=== PATIENT | female | born 1935 | race Caucasian/White ===

== ENCOUNTER 2020-05-01 17:00 | Outpatient (CLI) | payer MEDICARE, OTHER, SELFPAY ==
--- NOTE | ~2020-05-01 | CT_ITS ---
EXAMINATION: CT brain wo con DATE: 05/01/2020 17:19 INDICATION: Altered mental status TECHNIQUE: Computed tomography (CT) of the head was performed without intravenous contrast. Sagittal and coronal reconstructions were performed. The mA was adjusted according to patient size. Iterative reconstruction technique was employed. The dose-length product was 605.33 mGy-cm. COMPARISON: head CT dated 03/22/2014 FINDINGS: No acute intracranial hemorrhage, acute infarction or abnormal extra axial fluid collection. There is mild scattered white matter hypoattenuation consistent with chronic small vessel ischemic disease. S ymmetric prominence of the sulci consistent with moderate age-appropriate diffuse cerebral volume los s. Ventricles are normal and symmetric. No mass/mass effect. Changes of bilateral intraocular lens re placement. The orbits, paranasal sinuses and mastoid air cells are normal. Intracranial calcified cer ebral atherosclerosis is noted. IMPRESSION: 1. No acute intracranial process. 2. Age-related changes including moderate diffuse volume loss and mild scattered white matter hypoatt enuation consistent with chronic small vessel ischemic disease. Reviewed, dictated and finalized at location A. IMPRESSION: 1. No acute intracranial process. 2. Age-related changes including moderate diffuse volume loss and mild scattere d white matter hypoattenuation consistent with chronic small vessel ischemic di sease.
[2020-05-01 18:07] LABS: Basophils Percent Auto 0.6 % (0.2-1.2); Eosinophils Percent Auto 0.6 % (0-4.4); Hematocrit 41.5 % (37.0-47.0); Hemoglobin 13.2 g/dL (12.0-15.0); Immature Granulocyte Absolute 0.02 K/mm3 (0.00-0.031); Immature Granulocyte Percent A 0.4 % (0-0.5); Lymphocytes Absolute Auto 1.45 K/mm3 (0.9-3.2); Lymphocytes Percent Auto 27.8 % (18.3-44.2); Mean Corpuscular HGB Conc 31.8 g/dl (32-36); Mean Corpuscular Hemoglobin 30.9 pg (26-34); Mean Corpuscular Volume 97.2 fl (80-100); Mean Platelet Volume 10.5 fl (7.4-10.4); Monocytes Absolute Auto 0.5 K/mm3 (0.1-0.6); Monocytes Percent Auto 9.8 % (2.6-8.5); Neutrophils Absolute Auto 3.2 K/mm3 (1.3-6.7); Neutrophils Percent Auto 60.8 % (45.5-73.1); Platelet Count Result 193 k/mm3 (150-375); Red Blood Count 4.27 M/mm3 (4.2-5.4); Red Cell Distribution Width 15.8 % (11.5-14.5); White Blood Count 5.2 K/mm3 (4.5-10.0)
[2020-05-01 18:20] LABS: Alanine Aminotransferase 13 U/L (4-35); Albumin Level 4.3 g/dL (3.5-5.1); Alkaline Phosphatase 158 U/L (38-126); Anion Gap 14.1 mmol/L (7-16); Aspartate Amino Transferase 27 U/L (14-36); Bilirubin,Total 0.5 mg/dL (0.2-1.3); Blood Urea Nitrogen 21 mg/dL (7-17); Calcium 9.7 mg/dL (8.4-10.2); Carbon Dioxide 31 mmol/L (22-30); Chloride 94 mmol/L (98-107); Estimated Glomerular Filt Rate 16; Glucose 110 mg/dL (65-105); Potassium 4.1 mmol/L (3.4-5.0); Sodium 135 mmol/L (137-145)
== END 2020-05-01 17:01 | disposition home or self-care (01) ==
LOC: ANHIMG 17:03
PROVIDERS: PCP Internal Medicine; Visit Provider Internal Medicine
DX: R41.82 Altered mental status, unspecified (principal); Z79.899 Other long term (current) drug therapy; E11.9 Type 2 diabetes mellitus without complications
CPT/HCPCS: 36415; 70450; 80053; 85025

== ENCOUNTER 2020-09-19 12:55 | Outpatient (NON) | payer MEDICARE, OTHER, SELFPAY ==
[2020-09-19 13:41] LABS: Add Urine Microscopic? YES; Appearance Urine Cloudy (Clear); Bacteria Urine Trace /hpf; Bilirubin Urine 1+ (Negative); Blood Urine 2+ (Negative); Color Urine Amber (Yellow); Glucose Urine UA Negative (Negative); Hyaline Casts Urine 20-29 /lpf; Ketones Urine Trace mg/dL (Negative); Leukocyte Esterase Ur 3+ LEU/UL (NEGATIVE); Mucus Urine Rare /lpf; Nitrate Urine Negative (Negative); Protein Urine 2+ mg/dL (Negative); RBC Urine >75 /hpf (0-2); Specific Grav Ur 1.023 (1.001-1.035); Squamous Epithelial Cell Urine Many /hpf (Few); WBC Urine >75 /hpf (0-3)
== END 2020-09-19 12:56 ==
PROVIDERS: PCP Internal Medicine; Visit Provider Internal Medicine
DX: R39.9 Unspecified symptoms and signs involving the genitourinary system (principal)
CPT/HCPCS: 81001; 87086

== ENCOUNTER 2021-02-26 06:41 | Outpatient (NON) | payer MEDICARE, OTHER, SELFPAY ==
[2021-02-26 07:52] LABS: Add Urine Microscopic? YES; Appearance Urine Cloudy (Clear); Bacteria Urine Trace /hpf; Bilirubin Urine Negative (Negative); Blood Urine Negative (Negative); Color Urine Yellow (Yellow); Glucose Urine UA Negative (Negative); Ketones Urine Negative (Negative); Leukocyte Esterase Ur 2+ LEU/UL (Negative); Nitrate Urine Negative (Negative); Protein Urine 2+ mg/dL (Negative); Specific Grav Ur 1.015 (1.001-1.035); Squamous Epithelial Cell Urine Many /hpf (Few); Transitional Epi Cells Urine Rare /hpf (None Seen); Urobilinogen Urine Negative mg/dL (<2.0); WBC Urine 16-20 /hpf
== END 2021-02-26 06:42 | disposition home or self-care (01) ==
PROVIDERS: PCP Internal Medicine; Visit Provider Internal Medicine
DX: R39.9 Unspecified symptoms and signs involving the genitourinary system (principal)
CPT/HCPCS: 81001; 87077; 87086; 87088; 87186

== ENCOUNTER 2021-02-26 11:29 | Outpatient (CLI) | payer MEDICARE, OTHER, SELFPAY ==
[2021-02-26 12:13] LABS: Basophils Percent Auto 0.5 % (0.2-1.2); Eosinophils Absolute Auto 0.1 K/mm3 (0-0.3); Eosinophils Percent Auto 1.4 % (0-4.4); Hematocrit 43.1 % (37.0-47.0); Hemoglobin 13.6 g/dL (12.0-15.0); Immature Granulocyte Absolute 0.02 K/mm3 (0.00-0.031); Immature Granulocyte Percent A 0.3 % (0-0.5); Lymphocytes Absolute Auto 1.51 K/mm3 (0.9-3.2); Lymphocytes Percent Auto 26.3 % (18.3-44.2); Mean Corpuscular HGB Conc 31.6 g/dl (32-36); Mean Corpuscular Hemoglobin 31.6 pg (26-34); Mean Platelet Volume 10.4 fl (7.4-10.4); Monocytes Absolute Auto 0.4 K/mm3 (0.1-0.6); Monocytes Percent Auto 6.6 % (2.6-8.5); Neutrophils Absolute Auto 3.7 K/mm3 (1.3-6.7); Neutrophils Percent Auto 64.9 % (45.5-73.1); Platelet Count Result 179 k/mm3 (150-375); Red Blood Count 4.31 M/mm3 (4.2-5.4); Red Cell Distribution Width 13.4 % (11.5-14.5); White Blood Count 5.8 K/mm3 (4.5-10.0)
[2021-02-26 12:19] LABS: Ammonia < 9 umol/L (9-30)
[2021-02-26 12:21] LABS: Alanine Aminotransferase 11 U/L (4-35); Albumin Level 4.5 g/dL (3.5-5.1); Alkaline Phosphatase 175 U/L (38-126); Anion Gap 11 mmol/L (8-16); Aspartate Amino Transferase 24 U/L (14-36); Bilirubin,Total 0.4 mg/dL (0.2-1.3); Blood Urea Nitrogen 15 mg/dL (7-17); Calcium 10.2 mg/dL (8.4-10.2); Carbon Dioxide 34 mmol/L (22-30); Chloride 92 mmol/L (98-107); Estimated Glomerular Filt Rate 10; Glucose 134 mg/dL (65-105); Potassium 4.6 mmol/L (3.4-5.0); Sodium 137 mmol/L (137-145)
[2021-02-26 12:24] LABS: Hemoglobin A1C 5.7 % (<5.7)
[2021-02-26 12:51] LABS: Thyroid Stimulating Hormone 0.017 uIU/mL (0.465-4.680)
[2021-02-26 12:54] LABS: Free T4 Free Thyroxine 1.55 ng/mL (0.78-2.19)
[2021-02-26 13:27] LABS: Folic Acid > 20.0 ng/mL (2.76->20); Vitamin B12 > 1000.0 pg/mL (239-931)
[2021-03-03 04:43] LABS: Vitamin B1 12 nmol/L (8-30)
[2021-03-05 11:18] LABS: Vitamin B2 12.2 nmol/L (6.2-39.0)
== END 2021-02-26 11:30 | disposition home or self-care (01) ==
LOC: ANHLAB 11:34
PROVIDERS: PCP Internal Medicine; Visit Provider Internal Medicine
DX: R41.82 Altered mental status, unspecified (principal); Z79.899 Other long term (current) drug therapy; E03.9 Hypothyroidism, unspecified; E11.22 Type 2 diabetes mellitus with diabetic chronic kidney disease; N18.4 Chronic kidney disease, stage 4 (severe); Z79.4 Long term (current) use of insulin; I10 Essential (primary) hypertension
CPT/HCPCS: 36415; 80053; 81001; 82140; 82607; 82746; 83036; 84207; 84252; 84425; 84439; 84443; 85025; 87086; 87186

== ENCOUNTER 2021-04-04 09:19 | Outpatient (NON) | payer MEDICARE, OTHER, SELFPAY ==
[2021-04-04 09:42] LABS: Add Urine Microscopic? YES; Appearance Urine Cloudy (Clear); Bacteria Urine Trace /hpf; Bilirubin Urine Negative (Negative); Color Urine Amber (Yellow); Glucose Urine UA Negative (Negative); Hyaline Casts Urine 50+ /lpf; Ketones Urine Negative (Negative); Leukocyte Esterase Ur 2+ LEU/UL (Negative); Mucus Urine Rare /lpf; Nitrate Urine Negative (Negative); Protein Urine 3+ mg/dL (Negative); Specific Grav Ur 1.017 (1.001-1.035); Squamous Epithelial Cell Urine Many /hpf (Few); Urobilinogen Urine Negative mg/dL (<2.0); WBC Urine 51-75 /hpf
[2021-04-04 09:59] LABS: Blood Urine Negative (Negative)
== END 2021-04-04 09:20 | disposition home or self-care (01) ==
LOC: ANHLAB 09:21
PROVIDERS: PCP Internal Medicine; Visit Provider Internal Medicine
DX: N39.0 Urinary tract infection, site not specified (principal)
CPT/HCPCS: 81001; 87086; 87088

== ENCOUNTER → 2021-04-14 10:40 | Outpatient (CLI) | payer MEDICARE, OTHER, SELFPAY ==
--- NOTE | ~2021-04-14 | US_ITS ---
EXAMINATION: US pelvic complete DATE: 04/14/2021 13:04 INDICATION: Generalized abdominal pain TECHNIQUE: Multiple transabdominal sonographic images of the pelvis were obtained. COMPARISON: None. FINDINGS: Bowel gas obscures visualization of the pelvic structures. The uterus is not identified. Th e ovaries are not visualized however no adnexal abnormality is seen. There is no free fluid in the pe lvis. IMPRESSION: 1. No sonographic correlate for the patient's symptoms, examination limited by bowel gas. Reviewed, dictated and finalized at location B.
--- NOTE | ~2021-04-14 | US_ITS ---
EXAMINATION: US abdomen complete DATE: 04/14/2021 11:21 INDICATION: Generalized abdominal pain and nausea TECHNIQUE: Multiple grayscale and Doppler ultrasound images of the abdomen were obtained. COMPARISON: CT, 07/21/2017 FINDINGS: The head and body of the pancreas are normal. The pancreatic tail is obscured by bowel gas. The liver is normal with normal echogenicity and echotexture. No surface nodularity. Normal hepatope raúl flow in the main portal vein. Stones are present in the nondistended gallbladder. There is no gal lbladder wall thickening or pericholecystic fluid. The normal common bile duct measures 5 mm. There w as no sonographic Garcia sign. The visualized portions of the aorta and inferior vena cava are normal . The right kidney measures 11.9 x 5.2 x 5.9 cm. The left kidney measures 9.4 x 5.3 x 5.6 cm. The kidne ys demonstrate increased parenchymal echogenicity. There is no hydronephrosis. The spleen is normal i n appearance and measures 9.1 cm. IMPRESSION: 1. Cholelithiasis without evidence of cholecystitis. Reviewed, dictated and finalized at location B.
== END ==
PROVIDERS: PCP Internal Medicine; Visit Provider Internal Medicine
DX: R10.2 Pelvic and perineal pain (principal); R10.84 Generalized abdominal pain; R11.0 Nausea; K80.20 Calculus of gallbladder without cholecystitis without obstruction
CPT/HCPCS: 76700; 76856

== ENCOUNTER 2021-04-22 07:44 | Outpatient (CLI) | payer MEDICARE, SELFPAY ==
--- NOTE | ~2021-04-22 | NM_ITS ---
EXAMINATION: NM hepatobiliary w pharm DATE: 04/22/2021 10:07 INDICATION: Generalized abdominal pain. COMPARISON: CT and ultrasound studies dated 04/14/2021 TECHNIQUE: 4.8 mCi Tc-99m mebrofenin (Choletec) was administered intravenously. Scintigraphic images of the abdomen were obtained for one hour. 1.9 mcg sincalide (Kinevac) was administered by slow intr avenous infusion, and imaging was continued for 30 minutes. Gallbladder ejection fraction was calcula rosi by the technologist. FINDINGS: There is normal clearance of radiotracer from the blood pool. There is homogeneous tracer uptake by t he liver. Activity progresses to the gallbladder and bowel. The gallbladder ejection fraction (GBEF) is 49% (normal 10-90%, but most patient with gallbladder dysfunction have GBEF < 35% which does over lap with the normal range). IMPRESSION: 1. Normal hepatobiliary scan. Reviewed, dictated and finalized at location A.
== END 2021-04-22 07:45 | disposition home or self-care (01) ==
LOC: ANHIMG 07:48
PROVIDERS: PCP Internal Medicine; Visit Provider Internal Medicine
DX: R10.9 Unspecified abdominal pain (principal); R11.0 Nausea
CPT/HCPCS: 78227; A9537; J2805

== ENCOUNTER 2021-04-28 13:13 | Outpatient (NON) | payer MEDICARE, SELFPAY ==
[2021-04-28 14:12] LABS: Add Urine Microscopic? YES; Appearance Urine Clear (Clear); Bilirubin Urine Negative (Negative); Color Urine Amber (Yellow); Glucose Urine UA Negative (Negative); Ketones Urine Negative (Negative); Leukocyte Esterase Ur 1+ LEU/UL (Negative); Nitrate Urine Negative (Negative); Protein Urine 1+ mg/dL (Negative); RBC Urine 0-2 /hpf (0-2); Specific Grav Ur 1.014 (1.001-1.035); Squamous Epithelial Cell Urine Many /hpf (Few); Transitional Epi Cells Urine Rare /hpf (None Seen); Urobilinogen Urine Negative mg/dL (<2.0)
[2021-04-28 14:16] LABS: Blood Urine Negative (Negative)
== END 2021-04-28 13:14 | disposition home or self-care (01) ==
LOC: ANHLAB 13:15
PROVIDERS: PCP Internal Medicine; Visit Provider Internal Medicine
DX: N39.0 Urinary tract infection, site not specified (principal)
CPT/HCPCS: 81001; 87077; 87086; 87186

== ENCOUNTER 2021-05-26 11:45 | Outpatient (NON) | payer MEDICARE, OTHER, SELFPAY ==
[2021-05-26 12:17] LABS: Add Urine Microscopic? YES; Appearance Urine Cloudy (Clear); Bilirubin Urine Negative (Negative); Color Urine Amber (Yellow); Glucose Urine UA Negative (Negative); Ketones Urine Negative (Negative); Leukocyte Esterase Ur 2+ LEU/UL (Negative); Mucus Urine Rare /lpf; Nitrate Urine Negative (Negative); Protein Urine 2+ mg/dL (Negative); Specific Grav Ur 1.017 (1.001-1.035); Squamous Epithelial Cell Urine Many /hpf (Few); Transitional Epi Cells Urine Rare /hpf (None Seen); Urobilinogen Urine Negative mg/dL (<2.0); WBC Urine 31-50 /hpf
[2021-05-26 12:20] LABS: Blood Urine Negative (Negative)
== END 2021-05-26 11:46 | disposition home or self-care (01) ==
PROVIDERS: PCP Internal Medicine; Visit Provider Internal Medicine
DX: N39.0 Urinary tract infection, site not specified (principal)
CPT/HCPCS: 81001; 87086; 87088

== ENCOUNTER 2021-06-25 13:36 | Outpatient (NON) | payer MEDICARE, OTHER, SELFPAY ==
[2021-06-25 14:56] LABS: Add Urine Microscopic? YES; Appearance Urine Cloudy (Clear); Bacteria Urine Trace /hpf; Bilirubin Urine Negative (Negative); Blood Urine Negative (Negative); Color Urine Amber (Yellow); Glucose Urine UA Negative (Negative); Ketones Urine Negative (Negative); Leukocyte Esterase Ur 3+ LEU/UL (Negative); Nitrate Urine Negative (Negative); Protein Urine 2+ mg/dL (Negative); Specific Grav Ur 1.016 (1.001-1.035); Squamous Epithelial Cell Urine Many /hpf (Few); Urobilinogen Urine Negative mg/dL (<2.0); WBC Urine >75 /hpf
== END 2021-06-25 13:37 | disposition home or self-care (01) ==
LOC: ANHLAB 13:39
PROVIDERS: PCP Internal Medicine; Visit Provider Internal Medicine
DX: N93.0 Postcoital and contact bleeding (principal)
CPT/HCPCS: 81001; 87086

== ENCOUNTER 2021-07-02 13:22 | Observation (INO) | payer MEDICARE, OTHER, SELFPAY ==
[2021-07-02] VITALS (64 sets, daily range): BP systolic 88–146; BP diastolic 39–102; PULSE 57–64; RESP 16–28; TEMP 36.4–36.6; O2SAT 82–100; BMI 32.3
--- NOTE | ~2021-07-02 | CT_ITS ---
EXAMINATION: CT brain wo con DATE: 07/02/2021 15:17 INDICATION: Altered mental status. Confusion. TECHNIQUE: Computed tomography (CT) of the head was performed without intravenous contrast. The mA wa s adjusted according to patient size. Iterative reconstruction technique was employed. The dose-lengt h product was 681.00 mGy-cm. COMPARISON: Head CT 05/01/2020 FINDINGS: There is no intracranial hemorrhage, acute infarction, or abnormal intracranial mass lesion . There are scattered areas of low attenuation in the cerebral white matter, which is within normal l imits for the patient's age. The ventricles are normal in size. There is mild mucosal thickening in t he paranasal sinuses. There are likely changes of ocular lens replacement surgeries. The mastoid air cells are normal. IMPRESSION: 1. Normal aging brain. Reviewed, dictated and finalized at location A. IMPRESSION: 1. Normal aging brain.
--- NOTE | ~2021-07-02 | XR_ITS ---
EXAMINATION: XR chest 1V portable EXAM DATE: 07/02/2021 18:06 INDICATION: Transient alteration of awareness. TECHNIQUE: Portable AP frontal chest x-ray was obtained. Comparison is made to prior examination from 03/21/2014. FINDINGS: Sternotomy wires are present without findings to suggest sternal dehiscence. There is singl e lead pacemaker/AICD device seen with tip projecting over the expected location of right ventricle. Cardiac valve replacement. There is cardiomegaly and pulmonary vascular congestion. No confluent cons olidation, pneumothorax or pleural effusion suspected. IMPRESSION: Cardiomegaly, pulmonary vascular congestion. Reviewed, dictated and finalized at location A.
--- NOTE | 2021-07-02 14:08 | ECG_ITS ---
Measurements Intervals Roundup Rate: 60 P: NH: 0 QRS: -61 QRSD: 185 T: 101 QT: 513 QTc: 513 Interpretive Statements ELECTRONIC VENTRICULAR PACEMAKER BASELINE ARTIFACT- I, II, III, AVR, AVL, AVF, V1, V3-V6 NO FURTHER INTERPRETATION IS POSSIBLE ATYPICAL ECG Electronically Signed On 07-02-2021 15:08:06 CDT by Pete Yeboah D.O.
--- NOTE | 2021-07-02 14:58 | ED.GENADULT ---
HPI - General Adult General Chief complaint: Altered Mental Status Stated complaint: AMS/? UTI Time Seen by Provider: 07/02/21 14:40 Source: patient, EMS, RN notes reviewed and old records reviewed Mode of arrival: EMS Limitations: no limitations History of Present Illness HPI narrative: Patient is 86 years old white female came to the ED by ambulance from home. Patient is telling me that she been feeling weak over the last 2 days, her legs unable to keep her up. And the more swelling than usual. Patient denies any fever, chills, nausea, vomiting, chest pain, shortness of breath, headache, back pain. Patient's daughter who called 911 reports that patient been hallucinating, confused and combative started yesterday. She finished a course of Cipro for 5 days for possible urinary tract infection. Patient also scratched her lower legs yesterday by her fingernail because she was hallucinating. Patient supposed to go to dialysis today but she did not. Currently patient main complaint is leg swelling and chronic knee pain Related Data Home Medications Medication Instructions Recorded Confirmed nystatin 100,000 unit/gram topical 1 applic TOPICAL BID 10/03/19 05/21/21 ointment silver sulfadiazine 1 % topical 1 applic TOPICAL BID 10/03/19 05/21/21 cream triamcinolone acetonide 0.1 % 1 applic TOPICAL BID 10/03/19 05/21/21 topical cream sevelamer HCl 800 mg tablet 1,600 mg PO TID tablet 08/20/20 05/21/21 furosemide 40 mg tablet 80 mg PO DAILY tablet 11/01/20 05/21/21 Lactobacillus cap PO 02/26/21 05/21/21 no.51-Bifidobacterium no.4 50 billion cell capsule aspirin 81 mg tablet,delayed 81 mg PO DAILY 02/26/21 05/21/21 release biotin 1,000 mcg chewable tablet 1,000 mcg PO DAILY 02/26/21 05/21/21 cyclobenzaprine 10 mg tablet 10 mg PO DAILY tablet 02/26/21 05/21/21 trazodone 50 mg tablet 50 mg PO QHS PRN 03/24/21 05/21/21 cranberry extract-vitamin C 250 cap PO 05/20/21 05/21/21 mg-60 mg capsule estrogen cream VAGINAL 06/30/21 trimethoprim 100 mg tablet 100 mg PO DAILY 06/30/21 Allergies Allergy/AdvReac Type Severity Reaction Status Date / Time amoxicillin Allergy Unknown Unknown Verified 07/02/21 13:45 clavulanic acid Allergy Unknown Unknown Verified 07/02/21 13:45 Penicillins Allergy Unknown Other Verified 07/02/21 13:45 Sulfa (Sulfonamide Allergy Unknown Unknown Verified 07/02/21 13:45 Antibiotics) sulfamethoxazole Allergy Unknown Unknown Verified 07/02/21 13:45 Review of Systems Review of Systems: CONSTITUTIONAL: Denies fever, chills, or sweats. EYES: Denies visual changes, redness, or discharge. ENT: Denies rhinorrhea, congestion, sore throat, or otalgia. CARDIOVASCULAR: Denies chest pain, palpitations, or edema. RESPIRATORY: Denies cough or dyspnea. GASTROINTESTINAL: Denies abdominal pain, nausea, vomiting, or diarrhea. GENITOURINARY: Denies dysuria or hematuria. SKIN: Denies rash or itching. MUSCULOSKELETAL: Denies back pain, joint pain, or myalgia. NEUROLOGIC: Denies headache, numbness, or weakness. PSYCHIATRIC: Denies anxiety or depression. [facility] Past Medical History Medical History Abdominal pain Abrasion Alopecia Altered mental status Benign essential hypertension BMI 30.0-30.9,adult BMI 32.0-32.9,adult BMI 33.0-33.9,adult Callus of foot Chronic acquired lymphedema Chronic pain Congestion of both ears Constipation Diabetes mellitus with neuropathy Diabetic retinopathy DM type 2 (diabetes mellitus, type 2) Encounter for routine adult health examination without abnormal findings ESRD (end stage renal disease) Follow up Frequent UTI GERD (gastroesophageal reflux disease) Gout Hyperlipidemia Hypothyroidism (acquired) Nausea 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
[2021-07-02 15:03] LABS: Glucose Point of Care 170 mg/dl (65-105)
[2021-07-02 15:07] LABS: Basophils Percent Auto 0.6 % (0.2-1.2); Eosinophils Absolute Auto 0.1 K/mm3 (0-0.3); Hematocrit 34.3 % (37.0-47.0); Hemoglobin 11.1 g/dL (12.0-15.0); Immature Granulocyte Absolute 0.01 K/mm3 (0.00-0.031); Immature Granulocyte Percent A 0.2 % (0-0.5); Lymphocytes Absolute Auto 1.07 K/mm3 (0.9-3.2); Lymphocytes Percent Auto 20.6 % (18.3-44.2); Mean Corpuscular HGB Conc 32.4 g/dl (32-36); Mean Corpuscular Hemoglobin 30.9 pg (26-34); Mean Corpuscular Volume 95.5 fl (80-100); Monocytes Absolute Auto 0.5 K/mm3 (0.1-0.6); Neutrophils Absolute Auto 3.5 K/mm3 (1.3-6.7); Neutrophils Percent Auto 67.6 % (45.5-73.1); Platelet Count Result 164 k/mm3 (150-375); Red Blood Count 3.59 M/mm3 (4.2-5.4); Red Cell Distribution Width 14.5 % (11.5-14.5); White Blood Count 5.2 K/mm3 (4.5-10.0)
[2021-07-02 15:16] LABS: INR 0.9; Prothrombin Time 12.4 Seconds (11.1-14.7)
[2021-07-02 15:17] LABS: Partial Thromboplastin Time 28.3 SECONDS (22.3-36.8)
--- NOTE | 2021-07-02 15:50 | PC.NURSE ---
Called lab requesting add on for this patient.
[2021-07-02 15:58] LABS: Add Urine Microscopic? YES; Appearance Urine Clear (Clear); Bilirubin Urine Negative (Negative); Blood Urine Negative (Negative); Color Urine Amber (Yellow); Glucose Urine UA Negative (Negative); Ketones Urine Negative (Negative); Leukocyte Esterase Ur Trace LEU/UL (Negative); Nitrate Urine Negative (Negative); Protein Urine 2+ mg/dL (Negative); Specific Grav Ur 1.017 (1.001-1.035); Urobilinogen Urine Negative mg/dL (<2.0)
[2021-07-02 16:57] LABS: Alanine Aminotransferase 12 U/L (4-35); Albumin Level 4.2 g/dL (3.5-5.1); Alkaline Phosphatase 160 U/L (38-126); Anion Gap 6 mmol/L (8-16); Aspartate Amino Transferase 29 U/L (14-36); Bilirubin,Total 0.5 mg/dL (0.2-1.3); Blood Urea Nitrogen 26 mg/dL (7-17); Calcium 9.4 mg/dL (8.4-10.2); Carbon Dioxide 34 mmol/L (22-30); Chloride 91 mmol/L (98-107); Estimated CRCL calculation 10 ml/min; Estimated Glomerular Filt Rate 9; Glucose 162 mg/dL (65-110); Potassium 4.9 mmol/L (3.4-5.0); Sodium 131 mmol/L (137-145)
--- NOTE | 2021-07-02 20:27 | PM.IMHP ---
H&P: HPI History of Present Illness Date/Time: 07/02/21 20:27 Chief Complaint: Altered mental status Narrative: Patient is 86 years old white female brought in by her daughter was at bedside due to confusion altered mental status. According to the daughter she has been confused and hallucinating and combative earlier today and hence Joni missed going to her dialysis as well. She was recently diagnosed with a UTI and has been having urinary tract infection off and on for quite some time. See also starts going to a urologist recently and has been put on trimethoprim daily to prevent recurrent urine tract infection. Whenever she gets urinary tract infection see does get confused and hallucinates during those time but gets better after the urinary tract infection is treated. She recently finished a course of ciprofloxacin prior to getting back on trimethoprim this time. She has been on hemodialysis for quite some time here. She has diabetes was well controlled she does report that she had an episode of low blood sugar of 54 about a week ago. She normally uses walker at home and gets around. She denies any fever chills nausea vomiting abdominal pain diarrhea shortness of breath headache chest pain. She states summer did something to her toenails however her daughter confirms that there has been nothing done to her toenails and she has been hallucinating with regard to that. Review of Systems Review of Systems: - CONSTITUTIONAL: Denies weight loss, fever and chills. - HEENT: Denies changes in vision and hearing - RESPIRATORY: Denies SOB and cough. - CV: Denies palpitations and CP. - GI: Denies abdominal pain, nausea, vomiting and diarrhea. - : Denies dysuria and urinary frequency. - MSK: Denies myalgia and joint pain. - SKIN: Denies rash and pruritus. - NEUROLOGICAL: Denies headache and syncope. - PSYCHIATRIC: Reports some agitation/hallucinations on and off All systems reviewed & are unremarkable except as noted in HPI and below Constitutional: Constitutional: Reports fatigue and Reports weakness Neurologic: Reports weakness Endocrine: Endocrine: Reports fatigue [facility] Past Medical History Medical History Abdominal pain Abrasion Alopecia Altered mental status Benign essential hypertension BMI 30.0-30.9,adult BMI 32.0-32.9,adult BMI 33.0-33.9,adult Callus of foot Chronic acquired lymphedema Chronic pain Congestion of both ears Constipation Diabetes mellitus with neuropathy Diabetic retinopathy DM type 2 (diabetes mellitus, type 2) Encounter for routine adult health examination without abnormal findings ESRD (end stage renal disease) Follow up Frequent UTI GERD (gastroesophageal reflux disease) Gout Hyperlipidemia Hypothyroidism (acquired) Nausea 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 RENATE on CPAP Renal failure Family History Family History Mother Diabetes mellitus Sibling Diabetes mellitus Cerebrovascular accident Social History Social History (Updated 07/02/21 @ 21:57 by Allegra Dillon, RN) Smoking status: Never smoker Alcohol intake: never Substance use: never Living arrangements: with family Occupation/Education: retired Spiritual care concerns: No Meds Home Medications and Allergies Home Medications Medication Instructions Recorded Confirmed Type sevelamer HCl 800 mg tablet 1,600 mg PO TID tablet 08/20/20 05/21/21 History furosemide 40 mg tablet 80 mg PO DAILY tablet 11/01/20 05/21/21 History Lactobacillus cap PO 02/26/21 05/21/21 History no.51-Bifidobacterium no.4 50 billion cell capsule aspirin 81 mg tablet,delayed 81 mg PO DAILY 02/26/21 05/21/21 History release biotin 1,000 mcg chewable tablet 1,000 mcg PO DAILY 02/26/21 05/21/21 History cyclobenzaprine 10 mg tablet 10 mg PO DAILY tablet 02/26/21 05/21/21 History insulin NPH isoph U-100 human 100 See Rx
--- NOTE | 2021-07-02 21:20 | ADMGEN ---
This patient, Diane Rojas, was admitted to Medical Room 347-01. Patient/family oriented to hospital policies and general routines including ID bracelet, bed and alarms, visiting hours, pain management, procedures, bathroom and other care routines, personal items, smoking policy, room service/diet, and visiting hours. Information on how to activate the Rapid Response Team has been discussed. Patient/Family are encouraged to report perceived risks to care and to ask questions if they do not understand what they are told or what they should do.
[2021-07-02 22:34] LABS: Glucose Point of Care 144 mg/dl (65-105)
[2021-07-02] MEDS: ASPIRIN 81 MG ENTERIC TABLET PO (23:15)
[2021-07-02] MEDS: SIMVASTATIN 20 MG TABLET 40 MG PO (23:15)
[2021-07-02] MEDS: allopurinoL 100 MG TABLET PO (23:16)
[2021-07-02] MEDS: MIRTAZAPINE 7.5 MG TABLET PO (23:16)
[2021-07-02 23:19] LABS: Hemoglobin A1C 5.6 % (<5.7)
[2021-07-03] VITALS (18 sets, daily range): BP systolic 102–190; BP diastolic 43–78; PULSE 59–66; RESP 16–18; TEMP 35.6–37; O2SAT 98–100
[2021-07-03 00:50] LABS: Folic Acid > 20.0 ng/mL (2.76->20)
[2021-07-03] MEDS: LEVOTHYROXINE SODIUM 88 MCG TABLET PO (05:29)
[2021-07-03 07:43] LABS: Vitamin D 25 Hydroxy 21.7 ng/mL
[2021-07-03 07:46] LABS: Glucose Point of Care 134 mg/dl (65-105)
--- NOTE | 2021-07-03 08:37 | PC.NURSE ---
Left message for the dialysis nurse scullion chief.
[2021-07-03] MEDS: ACIDOPHILUS/BULGARICUS CHEWABLE TABLET 2 TABLET BY MOUTH (08:42)
[2021-07-03] MEDS: SERTRALINE HCL 50 MG TABLET PO (08:43)
[2021-07-03] MEDS: TRIMETHOPRIM 100 MG TABLET PO (08:43)
[2021-07-03] MEDS: SEVELAMER CARBONATE 800 MG TABLET 1600 MG PO ×3 (08:43→17:18)
[2021-07-03] MEDS: QUEtiapine FUMARATE 25 MG TABLET PO ×2 (08:43→17:19)
[2021-07-03] MEDS: PANTOPRAZOLE 40 MG TABLET PO ×2 (08:43→17:18)
[2021-07-03] MEDS: FUROSEMIDE 40 MG TABLET PO ×2 (08:44→17:18)
[2021-07-03] MEDS: SUCRALFATE 1 GM TABLET PO ×2 (08:44→17:19)
[2021-07-03] MEDS: CYCLOBENZAPRINE HCL 10 MG TABLET PO (08:44)
--- NOTE | 2021-07-03 09:30 | PM.CNNEP ---
Assessment and Plan Assessment and plan (1) ESRD (end stage renal disease): Code(s): N18.6 - End stage renal disease Status: Acute Assessment and Plan: Diane Has end-stage renal disease. She was due for dialysis yesterday. She came to the ER. She is getting dialysis today to catch up and then we will treat her tomorrow or Wednesday as well. The patient has end-stage renal disease is from diabetes and hypertension. She tolerates the treatments fairly well generally. No big drops in blood pressure or cramping. Her volume status looks pretty good. We will take some fluid off in the treatment. Her electrolytes and BUN are okay (2) Metabolic encephalopathy: Code(s): G93.41 - Metabolic encephalopathy Status: Acute Assessment and Plan: the patient had confusion and hallucinations yesterday at home. This seemed to improve by the time she got here. (3) Abrasion: Code(s): T14.8XXA - Other injury of unspecified body region, initial encounter Status: Acute Assessment and Plan: Patient has some the right lower extremity. It does not look very red and it is not very painful. No fevers and her white count is okay. (4) Frequent UTI: Code(s): N39.0 - Urinary tract infection, site not specified Status: Acute Assessment and Plan: UA is negative now (5) Benign essential hypertension: Code(s): I10 - Essential (primary) hypertension Status: Acute Assessment and Plan: blood pressure is under good control (6) RENATE on CPAP: Code(s): G47.33 - Obstructive sleep apnea (adult) (pediatric); Z99.89 - Dependence on other enabling machines and devices Status: Acute Assessment and Plan: she uses a CPAP mask (7) GERD (gastroesophageal reflux disease): Qualifiers: Esophagitis presence: esophagitis presence not specified Qualified Code(s): K21.9 - Gastro-esophageal reflux disease without esophagitis Code(s): K21.9 - Gastro-esophageal reflux disease without esophagitis Status: Acute Assessment and Plan: no symptoms right now (8) Hypothyroidism (acquired): Code(s): E03.9 - Hypothyroidism, unspecified Status: Acute Assessment and Plan: on supplement (9) DM type 2 (diabetes mellitus, type 2): Qualifiers: Chronic kidney disease stage: stage 4 (severe) Diabetes mellitus complication detail: with chronic kidney disease Diabetes mellitus complication status: with kidney complications Diabetes mellitus care home insulin use: with care home use Qualified Code(s): E11.22 - Type 2 diabetes mellitus with diabetic chronic kidney disease; N18.4 - Chronic kidney disease, stage 4 (severe); Z79.4 - alf (current) use of insulin Code(s): E11.9 - Type 2 diabetes mellitus without complications Status: Acute Assessment and Plan: on Accu-Cheks and sliding-scale insulin History of Present Illness Reason for Consult Consult date: 07/03/21 Chief Complaint Chief complaint: Encephalopathy, Hemodialysis Patient History of Present Illness Narrative: Diane is a very pleasant 86-year-old lady who has multiple medical problems including end-stage renal disease on dialysis 3 times a week, recurrent UTIs, diabetes, hypertension, hyperlipidemia, sleep apnea, hypothyroidism, gout, GERD the patient gets recurrent bladder infections. When she gets a bladder infection she gets confused. Usually the urinalysis is positive and gets antibiotics. Because of the frequent bladder infections she saw Urology. That doctor put her on daily Trimethoprim. The patient became confused yesterday and so she was felt to have a bladder infection. She went to the emergency room and the urine was clear. The patient was alert and seems oriented in the ER but because of the concerns at home they admitted her. Currently the patient recognizes me. She feels okay. She still on her
[2021-07-03 09:41] LABS: Thyroid Stimulating Hormone Reflex 0.265 uIU/mL (0.465-4.68)
[2021-07-03 10:13] LABS: Free T4 Free Thyroxine Reflex 1.74 ng/dL (0.78-2.19)
[2021-07-03 12:16] LABS: Glucose Point of Care 173 mg/dl (65-105)
--- NOTE | 2021-07-03 14:02 | PM.IMPN ---
Progress Note: A&P Assessment and Plan (1) Metabolic encephalopathy: Code(s): G93.41 - Metabolic encephalopathy Status: Acute Assessment and Plan: Altered mental status acute on chronic likely has underlying dementia CT head with no acute findings however noted cerebral volume loss likely frontotemporal area which has worsened compared to last year's CT scan Also associated hallucinations suggest possibly dementia related and or or delirium from underlying UTI etc MRI brain pending Neurology consulted May need follow-up with Neurology as an outpatient basis for continued monitoring Followed by psychiatrist as outpatient basis on sertraline and Seroquel Remeron at night which will be continued (2) Frequent UTI: Code(s): N39.0 - Urinary tract infection, site not specified Status: Acute Assessment and Plan: recent UTI treated with Cipro currently on trimethoprim rate daily UA not suggestive of the UTI currently Follow UC (3) Gout: Qualifiers: Gout site: unspecified site Gout etiology: unspecified cause Chronicity: unspecified Qualified Code(s): M10.9 - Gout, unspecified Code(s): M10.9 - Gout, unspecified Status: Acute Assessment and Plan: Continue allopurinol (4) ESRD (end stage renal disease): Code(s): N18.6 - End stage renal disease Status: Acute Assessment and Plan: HD MWF Missed dialysis yesterday, plan for HD today and Wednesday Nephrology consulted, recommendations appreciated Avoid nephrotoxins Renally dose all meds Monitor renal function (5) Diabetes mellitus with neuropathy: Qualifiers: Diabetes mellitus type: type 2 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 Hold NPH Hgb A1c 5.6 SSI, accuchecks Monitor (6) Diabetic retinopathy: Qualifiers: Diabetes mellitus type: type 2 Diabetic retinopathy severity: with unspecified retinopathy severity Diabetes mellitus macular edema: macular edema presence unspecified Laterality: unspecified laterality Qualified Code(s): E11.319 - Type 2 diabetes mellitus with unspecified diabetic retinopathy without macular edema Code(s): E11.319 - Type 2 diabetes mellitus with unspecified diabetic retinopathy without macular edema Status: Acute Assessment and Plan: Treatment as above (7) RENATE on CPAP: Code(s): G47.33 - Obstructive sleep apnea (adult) (pediatric); Z99.89 - Dependence on other enabling machines and devices Status: Acute Assessment and Plan: # RENATE on CPAP (8) Chronic acquired lymphedema: Code(s): I89.0 - Lymphedema, not elsewhere classified Status: Acute (9) GERD (gastroesophageal reflux disease): Qualifiers: Esophagitis presence: esophagitis presence not specified Qualified Code(s): K21.9 - Gastro-esophageal reflux disease without esophagitis Code(s): K21.9 - Gastro-esophageal reflux disease without esophagitis Status: Acute (10) Hypothyroidism (acquired): Code(s): E03.9 - Hypothyroidism, unspecified Status: Acute Assessment and Plan: TSH low Will continue with home dose for now Follow up with PCP, may need to adjust dose of Synthroid (11) Benign essential hypertension: Code(s): I10 - Essential (primary) hypertension Status: Acute Assessment and Plan: BP soft On Lasix Monitor (12) Hyperlipidemia: Qualifiers: Hyperlipidemia type: mixed hyperlipidemia Qualified Code(s): E78.2 - Mixed hyperlip
[2021-07-03 14:06] LABS: Total Triiodothyronine (T3) 0.83 NG/ML (0.97-1.69)
--- NOTE | 2021-07-03 14:24 | PC.NURSE ---
Patient taken to dialysis per bed.
--- NOTE | 2021-07-03 15:45 | WPDNEURCNPN ---
Assessment and Plan Additional Plan 86 years old lady admitted to the hospital through the emergency room for the complaint of change in the mental status initial CT scan of the brain revealed no evidence of bleed, hydrocephalus or any acute territorial stroke, routine lab studies are compatible with sodium of 131 with chloride of 91 and BUN 26 with creatinine of 4.60 her glucose is fluctuating between 160 to 173 I will obtain the routine EEG for further clarification Consult date: 07/03/21 Time Seen: 12:00 HPI: Diane Rojas is a 86 year old female has been admitted to the [facility] through the emergency room for the complaint of increasing confusion with change in the mental status as per the information available from her daughter when she was brought to the emergency room reportedly she has been confused, hallucinating and has also been combative for that reason she missed her dialysis she has been recently diagnosed with UTI and has been getting UTI quite frequently. Whenever she gets UTI she gets increasingly confused and starts hallucinating she has been on hemodialysis for quite some time Review of Systems Review of Systems: All systems reviewed & are unremarkable except as noted in HPI and below PMFSH Past Medical History Medical History Abdominal pain Abrasion Alopecia Altered mental status Benign essential hypertension BMI 30.0-30.9,adult BMI 32.0-32.9,adult BMI 33.0-33.9,adult Callus of foot Chronic acquired lymphedema Chronic pain Congestion of both ears Constipation Diabetes mellitus with neuropathy Diabetic retinopathy DM type 2 (diabetes mellitus, type 2) Encounter for routine adult health examination without abnormal findings ESRD (end stage renal disease) Follow up Frequent UTI GERD (gastroesophageal reflux disease) Gout Hyperlipidemia Hypothyroidism (acquired) Nausea On shelter drug therapy RENATE on CPAP Renal failure Family History Family History Mother Diabetes mellitus Sibling Diabetes mellitus Cerebrovascular accident Social History Social History Smoking status: Never smoker Alcohol intake: never Substance use: never Living arrangements: with family Occupation/Education: retired Spiritual care concerns: No Meds Home Medications and Allergies Home Medications Medication Instructions Recorded Confirmed Type sevelamer HCl 800 mg tablet 1,600 mg PO TID tablet 08/20/20 07/02/21 History furosemide 40 mg tablet 40 mg PO BID tablet 11/01/20 07/02/21 History Lactobacillus 1 cap PO DAILY 02/26/21 07/02/21 History no.51-Bifidobacterium no.4 50 billion cell capsule aspirin 81 mg tablet,delayed 81 mg PO HS 02/26/21 07/02/21 History release biotin 1,000 mcg chewable tablet 1,000 mcg PO QPM 02/26/21 07/02/21 History cyclobenzaprine 10 mg tablet 10 mg PO DAILY tablet 02/26/21 07/02/21 History insulin NPH isoph U-100 human 100 See Rx Instructions SUBCUT 02/26/21 07/02/21 Rx unit/mL subcutaneous suspension .COMPLEX #4 vial sucralfate 1 gram tablet 1 g PO BID #60 tablet 03/24/21 07/02/21 Rx trazodone 50 mg tablet 50 mg PO QHS PRN 03/24/21 07/02/21 History mirtazapine 7.5 mg tablet 7.5 mg PO QHS #90 tablet 04/03/21 07/02/21 Rx sertraline 50 mg tablet 50 mg PO DAILY #90 tablet 04/03/21 07/02/21 Rx omeprazole 40 mg capsule,delayed 40 mg PO BID #180 cap 05/09/21 07/02/21 Rx release trimethoprim 100 mg tablet 100 mg PO DAILY 06/30/21 07/02/21 History allopurinol 100 mg PO HS 07/02/21 07/02/21 History d-mannose 1,000 mg PO BID 07/02/21 07/02/21 History levothyroxine 88 mcg PO DAILY 07/02/21 07/02/21 History ondansetron 8 mg PO QID PRN 07/02/21 07/02/21 History quetiapine 25 mg PO BID 07/02/21 07/02/21 History simvastatin 40 mg PO HS 07/02/21 07/02/21 History Allergies Allergy/AdvReac Type Severity Reaction Sta
[2021-07-03 17:17] LABS: Glucose Point of Care 118 mg/dl (65-105)
[2021-07-03] MEDS: allopurinoL 100 MG TABLET PO (20:44)
[2021-07-03] MEDS: traZODone HCL 50 MG TABLET PO (20:44)
[2021-07-03] MEDS: ASPIRIN 81 MG ENTERIC TABLET PO (20:44)
[2021-07-03] MEDS: SIMVASTATIN 20 MG TABLET 40 MG PO (20:44)
[2021-07-03] MEDS: MIRTAZAPINE 7.5 MG TABLET PO (20:44)
--- NOTE | 2021-07-03 21:22 | PM.EVENT ---
Event Note Event Note Event Note: ON HD. noelle it well. bp is a bit generous.. will take extra fluid off seen at 4pm
[2021-07-03 21:33] LABS: Glucose Point of Care 173 mg/dl (65-105)
[2021-07-04] VITALS (13 sets, daily range): BP systolic 84–155; BP diastolic 46–62; PULSE 59–66; RESP 16–20; TEMP 36.2–37; O2SAT 100
[2021-07-04 05:55] LABS: Hemoglobin 9.6 g/dL (12.0-15.0); Mean Corpuscular Hemoglobin 30.6 pg (26-34); Mean Corpuscular Volume 95.5 fl (80-100); Mean Platelet Volume 10.3 fl (7.4-10.4); Platelet Count Result 133 k/mm3 (150-375); Red Blood Count 3.14 M/mm3 (4.2-5.4); Red Cell Distribution Width 14.6 % (11.5-14.5); White Blood Count 5.1 K/mm3 (4.5-10.0)
[2021-07-04] MEDS: LEVOTHYROXINE SODIUM 88 MCG TABLET PO (06:02)
[2021-07-04 06:09] LABS: Albumin Level 3.7 g/dL (3.5-5.1); Anion Gap 5 mmol/L (8-16); Blood Urea Nitrogen 25 mg/dL (7-17); Carbon Dioxide 31 mmol/L (22-30); Chloride 95 mmol/L (98-107); Estimated CRCL calculation 11 ml/min; Estimated Glomerular Filt Rate 10; Glucose 152 mg/dL (65-110); Phosphorus 3.6 mg/dL (2.5-4.5); Potassium 4.7 mmol/L (3.4-5.0); Sodium 131 mmol/L (137-145)
[2021-07-04] MEDS: TRIMETHOPRIM 100 MG TABLET PO (07:50)
[2021-07-04] MEDS: FUROSEMIDE 40 MG TABLET PO ×2 (07:50→16:45)
[2021-07-04] MEDS: CYCLOBENZAPRINE HCL 10 MG TABLET PO (07:50)
[2021-07-04] MEDS: SUCRALFATE 1 GM TABLET PO ×2 (07:50→16:46)
[2021-07-04] MEDS: PANTOPRAZOLE 40 MG TABLET PO ×2 (07:50→16:45)
[2021-07-04] MEDS: SEVELAMER CARBONATE 800 MG TABLET 1600 MG PO ×2 (07:50→16:43)
[2021-07-04] MEDS: QUEtiapine FUMARATE 25 MG TABLET PO ×2 (07:51→16:46)
[2021-07-04] MEDS: SERTRALINE HCL 50 MG TABLET PO (07:51)
[2021-07-04] MEDS: ACIDOPHILUS/BULGARICUS CHEWABLE TABLET 2 TABLET BY MOUTH (07:51)
[2021-07-04 08:28] LABS: Glucose Point of Care 137 mg/dl (65-105)
--- NOTE | 2021-07-04 10:20 | PM.IMPN ---
Progress Note: A&P Assessment and Plan (1) Metabolic encephalopathy: Code(s): G93.41 - Metabolic encephalopathy Status: Acute Assessment and Plan: Altered mental status acute on chronic likely has underlying dementia CT head with no acute findings however noted cerebral volume loss likely frontotemporal area which has worsened compared to last year's CT scan Also associated hallucinations suggest possibly dementia related and or or delirium from underlying UTI etc MRI brain pending Neurology consulted May need follow-up with Neurology as an outpatient basis for continued monitoring Followed by psychiatrist as outpatient basis on sertraline and Seroquel Remeron at night which will be continued (2) Frequent UTI: Code(s): N39.0 - Urinary tract infection, site not specified Status: Acute Assessment and Plan: recent UTI treated with Cipro currently on trimethoprim rate daily UA not suggestive of the UTI currently UC NGTD (3) Gout: Qualifiers: Gout site: unspecified site Gout etiology: unspecified cause Chronicity: unspecified Qualified Code(s): M10.9 - Gout, unspecified Code(s): M10.9 - Gout, unspecified Status: Acute Assessment and Plan: Continue allopurinol (4) ESRD (end stage renal disease): Code(s): N18.6 - End stage renal disease Status: Acute Assessment and Plan: HD MWF Missed dialysis yesterday, plan for HD today Nephrology consulted, recommendations appreciated Avoid nephrotoxins Renally dose all meds Monitor renal function (5) Diabetes mellitus with neuropathy: Qualifiers: Diabetes mellitus type: type 2 Diabetes mellitus long term acute care registered nurse insulin use: with long-term use Qualified Code(s): E11.40 - Type 2 diabetes mellitus with diabetic neuropathy, unspecified; Z79.4 - terminal press operator (current) use of insulin Code(s): E11.40 - Type 2 diabetes mellitus with diabetic neuropathy, unspecified Status: Acute Assessment and Plan: type 2 diabetes mellitus with neuropathy intermittent hypoglycemia reported as well which can add to the hallucination and mentation problem. Hold NPH Hgb A1c 5.6 SSI, accuchecks Monitor (6) Diabetic retinopathy: Qualifiers: Diabetes mellitus type: type 2 Diabetic retinopathy severity: with unspecified retinopathy severity Diabetes mellitus macular edema: macular edema presence unspecified Laterality: unspecified laterality Qualified Code(s): E11.319 - Type 2 diabetes mellitus with unspecified diabetic retinopathy without macular edema Code(s): E11.319 - Type 2 diabetes mellitus with unspecified diabetic retinopathy without macular edema Status: Acute Assessment and Plan: Treatment as above (7) RENATE on CPAP: Code(s): G47.33 - Obstructive sleep apnea (adult) (pediatric); Z99.89 - Dependence on other enabling machines and devices Status: Acute Assessment and Plan: # RENATE on CPAP (8) Chronic acquired lymphedema: Code(s): I89.0 - Lymphedema, not elsewhere classified Status: Acute (9) GERD (gastroesophageal reflux disease): Qualifiers: Esophagitis presence: esophagitis presence not specified Qualified Code(s): K21.9 - Gastro-esophageal reflux disease without esophagitis Code(s): K21.9 - Gastro-esophageal reflux disease without esophagitis Status: Acute (10) Hypothyroidism (acquired): Code(s): E03.9 - Hypothyroidism, unspecified Status: Acute Assessment and Plan: TSH low Will continue with home dose for now Follow up with PCP, may need to adjust dose of Synthroid (11) Benign essential hypertension: Code(s): I10 - Essential (primary) hypertension Status: Acute Assessment and Plan: BP soft On Lasix Monitor (12) Hyperlipidemia: Qualifiers: Hyperlipidemia type: mixed hyperlipidemia Qualified Code(s): E78.2 - Mixed hyperlipidemia C
--- NOTE | 2021-07-04 10:33 | WPDNEUROPN ---
Progress Note: A&P Additional Plan remains stable more awake and alert and following the instructions appropriately treatment will be continued as such Time Spent With Patient Time with patient: less than 15 minutes Subjective Date/time seen: 07/04/21 10:33 86 years old lady admitted for the complaints of change in the mental status with negative CT scan of the head but hyponatremia on routine lab evaluation up until now document cardiomegaly on x-ray of the chest, negative CT scan of the head, routine lab compatible with anemia mild hyponatremia, and abnormal UA Review of Systems Review of Systems: All systems reviewed & are unremarkable except as noted in HPI and below Exam Const: General: cooperative, comfortable, no acute distress, alert and awake Nutritional Appearance: overweight Orientation/consciousness: oriented to person and oriented to place Limitations: physical limitations HENMT: Head: normal to inspection Ears: hearing grossly normal bilaterally General nose exam: Normal external nose present Face and sinus: normal facial exam Eyes: General: appearance normal, both eyes and all related structures Visual Garza: normal visual garza by confrontation Alignment and Position: alignment normal Periorbital: periorbital findings normal Eyelids: eyelids normal Conjunctivae: conjunctivae normal Sclera: sclerae normal Cornea: corneas normal Neck: Neck: full ROM and no lymphadenopathy Resp: Effort & Inspection: able to speak in complete sentences Auscultation: clear to auscultation bilaterally Cardio: Rhythm: regular rhythm Neuro: General: oriented to person and oriented to place Cranial nerves: Yes CN's II-XII intact bilaterally Cognition (Neuro): normal cognition Speech: normal speech Gait exam (Neuro): Unable to assess gait Sensory Exam: Sensory deficit (Neuro) Deep tendon reflexes (DTR's): Right triceps reflex intensity grade: 1+, Left triceps reflex intensity grade: 1+, Rt Biceps (C5, C6): 1+, Left biceps reflex intensity grade: 1+, Right brachioradialis reflex intensity grade: 1+, Left brachioradialis reflex intensity grade: 1+, Right patellar reflex intensity grade: 1+, Left patellar reflex intensity grade: 1+, Right ankle reflex intensity grade: 0 and Left ankle reflex intensity grade: 0 Objective Data Vital Signs Vital Signs: Vital Signs - 24 hr 07/03/21 12:00 07/03/21 14:20 07/03/21 14:38 Temperature 36.7 C Pulse Rate 60 63 60 Respiratory Rate 18 Blood Pressure 149/66 H 167/70 H Pulse Oximetry 07/03/21 15:00 07/03/21 15:20 07/03/21 15:40 Temperature Pulse Rate 60 61 64 Respiratory Rate Blood Pressure 190/78 H 155/63 H 179/66 H Pulse Oximetry 07/03/21 16:00 07/03/21 16:20 07/03/21 16:40 Temperature Pulse Rate 60 59 L 59 L Respiratory Rate Blood Pressure 154/62 H 155/63 H 155/63 H Pulse Oximetry 07/03/21 16:58 07/03/21 19:46 07/03/21 20:00 Temperature 36.7 C 36.2 C L Pulse Rate 64 59 L 60 Respiratory Rate 16 16 Blood Pressure 159/54 H 149/43 H Pulse Oximetry 98 07/03/21 23:35 07/04/21 00:00 07/04/21 04:00 Temperature Pulse Rate 61 60 Respiratory Rate Blood Pressure Pulse Oximetry 98 07/04/21 04:02 Temperature 37.0 C Pulse Rate 60 Respiratory Rate 16 Blood Pressure 142/52 H Pulse Oximetry 100 Intake/Output Intake/Output: Intake & Output 07/01/21 07/02/21 07/03/21 07/04/21 23:59 23:59 23:59 23:59 Intake Total 770 340 Output Total 50 1100 0 Balance -50 -330 340 Meds/Results Medications: Active Medications Generic Name Dose Route Start Last Admin Trade Name Archana PRN Reason Stop Dose Admin Allopurinol 100 mg 07/02/21 22:50 07/03/21 20:44 Allopurinol 100 Mg Tablet PO 100 mg HS ISSA Administration Aspirin 81 mg 07/02/21 22:55 07/03/21 20:44 Aspirin 81 Mg Enteric Tablet PO 81 mg HS ISSA Administration Cyclobenzaprine HCl 10 mg 07/03/21 09:00 07/04/21 07:50 Cyclobenzapri
[2021-07-04] MEDS: EPOETIN ALFA-EPBX 10,000 UNITS/ML VIAL 10000 UNITS IV PUSH (13:15)
[2021-07-04 13:35] LABS: Hepatitis B Surface Antigen Negative (Negative)
[2021-07-04 13:53] LABS: Hepatitis B Surface Anti Res Negative
--- NOTE | 2021-07-04 14:43 | PM.PNNEP ---
Progress Note: A&P Assessment and Plan (1) ESRD (end stage renal disease): Code(s): N18.6 - End stage renal disease Status: Acute Assessment and Plan: Diane Has end-stage renal disease. due to DM and HTN HD is underway (2) Metabolic encephalopathy: Code(s): G93.41 - Metabolic encephalopathy Status: Acute Assessment and Plan: resolved. (3) Abrasion: Code(s): T14.8XXA - Other injury of unspecified body region, initial encounter Status: Acute Assessment and Plan: Patient has some the right lower extremity. It does not look very red and it is not very painful. No fevers and her white count is okay. (4) Frequent UTI: Code(s): N39.0 - Urinary tract infection, site not specified Status: Acute Assessment and Plan: UA is negative now (5) Benign essential hypertension: Code(s): I10 - Essential (primary) hypertension Status: Acute Assessment and Plan: blood pressure is under good control (6) RENATE on CPAP: Code(s): G47.33 - Obstructive sleep apnea (adult) (pediatric); Z99.89 - Dependence on other enabling machines and devices Status: Acute Assessment and Plan: she uses a CPAP mask (7) GERD (gastroesophageal reflux disease): Qualifiers: Esophagitis presence: esophagitis presence not specified Qualified Code(s): K21.9 - Gastro-esophageal reflux disease without esophagitis Code(s): K21.9 - Gastro-esophageal reflux disease without esophagitis Status: Acute Assessment and Plan: no symptoms right now (8) Hypothyroidism (acquired): Code(s): E03.9 - Hypothyroidism, unspecified Status: Acute Assessment and Plan: on supplement (9) DM type 2 (diabetes mellitus, type 2): Qualifiers: Diabetes mellitus residential insulin use: with rn long term care use Diabetes mellitus complication status: with kidney complications Diabetes mellitus complication detail: with chronic kidney disease Chronic kidney disease stage: stage 4 (severe) Qualified Code(s): E11.22 - Type 2 diabetes mellitus with diabetic chronic kidney disease; N18.4 - Chronic kidney disease, stage 4 (severe); Z79.4 - detention (current) use of insulin Code(s): E11.9 - Type 2 diabetes mellitus without complications Status: Acute Assessment and Plan: on Accu-Cheks and sliding-scale insulin Subjective Date/time seen: 07/04/21 14:43 Interval history: On HD noelle it well. BP is generous. will remove extra fluid. Seen at 11:35pm Review of Systems Cardiovascular: Cardiovascular: Reports no additional cardiovascular complaints Respiratory: Respiratory: Reports no additional respiratory complaints Gastrointestinal: Gastrointestinal: Reports no additional gastrointestinal complaints Genitourinary: Genitourinary: Reports no additional female genitourinary complaints Exam Narrative: WDWN in NAD skin no rash head ncat lungs clear cor reg no rub abd BS+ nontender and soft ext trace edema. Objective Data Vital Signs Vital Signs: Vital Signs - 24 hr 07/03/21 15:00 07/03/21 15:20 07/03/21 15:40 Temperature Pulse Rate 60 61 64 Respiratory Rate Blood Pressure 190/78 H 155/63 H 179/66 H Pulse Oximetry 07/03/21 16:00 07/03/21 16:20 07/03/21 16:40 Temperature Pulse Rate 60 59 L 59 L Respiratory Rate Blood Pressure 154/62 H 155/63 H 155/63 H Pulse Oximetry 07/03/21 16:58 07/03/21 19:46 07/03/21 20:00 Temperature 36.7 C 36.2 C L Pulse Rate 64 59 L 60 Respiratory Rate 16 16 Blood Pressure 159/54 H 149/43 H Pulse Oximetry 98 07/03/21 23:35 07/04/21 00:00 07/04/21 04:00 Temperature Pulse Rate 61 60 Respiratory Rate Blood Pressure Pulse Oximetry 98 07/04/21 04:02 07/04/21 08:00 07/04/21 11:30 Temperature 37.0 C 36.6 C Pulse Rate 60 61 60 Respiratory Rate 16 18 Blood Pressure 142/52 H 121/51 L Pulse
--- NOTE | 2021-07-04 15:02 | PCPTNOTE ---
Unable to initiate therapy due to pt out of room this afternoon.
[2021-07-04 16:55] LABS: Glucose Point of Care 116 mg/dl (65-105)
[2021-07-04] MEDS: MIRTAZAPINE 7.5 MG TABLET PO (21:40)
[2021-07-04] MEDS: SIMVASTATIN 20 MG TABLET 40 MG PO (21:40)
[2021-07-04] MEDS: allopurinoL 100 MG TABLET PO (21:40)
[2021-07-04] MEDS: ASPIRIN 81 MG ENTERIC TABLET PO (21:40)
[2021-07-04 21:55] LABS: Glucose Point of Care 234 mg/dl (65-105)
[2021-07-05] VITALS: PULSE 60
[2021-07-05 04:00] VITALS: PULSE 60
[2021-07-05 05:45] VITALS: BP 136/51; PULSE 60; RESP 20; TEMP 36.4; O2SAT 100
[2021-07-05 05:48] LABS: Hemoglobin 9.3 g/dL (12.0-15.0); Mean Corpuscular HGB Conc 32.1 g/dl (32-36); Mean Corpuscular Volume 96.7 fl (80-100); Mean Platelet Volume 10.3 fl (7.4-10.4); Platelet Count Result 128 k/mm3 (150-375); Red Cell Distribution Width 14.6 % (11.5-14.5); White Blood Count 4.2 K/mm3 (4.5-10.0)
[2021-07-05] MEDS: LEVOTHYROXINE SODIUM 88 MCG TABLET PO (05:56)
[2021-07-05 06:18] LABS: Anion Gap 3 mmol/L (8-16); Blood Urea Nitrogen 14 mg/dL (7-17); Carbon Dioxide 35 mmol/L (22-30); Chloride 97 mmol/L (98-107); Estimated CRCL calculation 16 ml/min; Estimated Glomerular Filt Rate 16; Glucose 151 mg/dL (65-110); Potassium 4.4 mmol/L (3.4-5.0); Sodium 135 mmol/L (137-145)
[2021-07-05 08:00] VITALS: PULSE 63
[2021-07-05 08:25] LABS: Glucose Point of Care 144 mg/dl (65-105)
[2021-07-05] MEDS: SEVELAMER CARBONATE 800 MG TABLET 1600 MG PO ×2 (09:13→11:42)
[2021-07-05] MEDS: SERTRALINE HCL 50 MG TABLET PO (09:14)
[2021-07-05] MEDS: ACIDOPHILUS/BULGARICUS CHEWABLE TABLET 2 TABLET BY MOUTH (09:14)
[2021-07-05] MEDS: CYCLOBENZAPRINE HCL 10 MG TABLET PO (09:14)
[2021-07-05] MEDS: SUCRALFATE 1 GM TABLET PO (09:14)
[2021-07-05] MEDS: FUROSEMIDE 40 MG TABLET PO (09:14)
[2021-07-05] MEDS: QUEtiapine FUMARATE 25 MG TABLET PO (09:15)
[2021-07-05] MEDS: PANTOPRAZOLE 40 MG TABLET PO (09:15)
[2021-07-05] MEDS: TRIMETHOPRIM 100 MG TABLET PO (09:15)
--- NOTE | 2021-07-05 10:55 | PCOTNOTE ---
Attempted to see pt. at 10:48 AM, Pt. kindly declined. Stated I just want to take a shower at home, I think I get to leave today. Im really just not feeling up to anything. Pt. educated on the benefits of occupational therapy this date for approx 5-8 minutes with increased encouragement to participate. Pt. continued to kindly decline.
--- NOTE | 2021-07-05 11:35 | PM.PNNEP ---
Progress Note: A&P Assessment and Plan (1) ESRD (end stage renal disease): Code(s): N18.6 - End stage renal disease Status: Acute Assessment and Plan: Diane has end-stage renal disease. due to DM and HTN HD was done yesterday. She did well. 1500cc was removed. She will get her next treatment on Wednesday either here or at [facility]. (2) Metabolic encephalopathy: Code(s): G93.41 - Metabolic encephalopathy Status: Acute Assessment and Plan: resolved. (3) Abrasion: Code(s): T14.8XXA - Other injury of unspecified body region, initial encounter Status: Acute Assessment and Plan: Patient has some the right lower extremity. This looks benign. Discussed with PA. Rinaldi (4) Frequent UTI: Code(s): N39.0 - Urinary tract infection, site not specified Status: Acute Assessment and Plan: UA is negative now (5) Benign essential hypertension: Code(s): I10 - Essential (primary) hypertension Status: Acute Assessment and Plan: blood pressure is doing well. She is on some furosemide to help with fluid control but otherwise is not on any antihypertensives. (6) RENATE on CPAP: Code(s): G47.33 - Obstructive sleep apnea (adult) (pediatric); Z99.89 - Dependence on other enabling machines and devices Status: Acute Assessment and Plan: she uses a CPAP mask (7) GERD (gastroesophageal reflux disease): Qualifiers: Esophagitis presence: esophagitis presence not specified Qualified Code(s): K21.9 - Gastro-esophageal reflux disease without esophagitis Code(s): K21.9 - Gastro-esophageal reflux disease without esophagitis Status: Acute Assessment and Plan: no symptoms right now (8) Hypothyroidism (acquired): Code(s): E03.9 - Hypothyroidism, unspecified Status: Acute Assessment and Plan: on supplement (9) DM type 2 (diabetes mellitus, type 2): Qualifiers: Diabetes mellitus terminal clerk insulin use: with terminal clerk use Diabetes mellitus complication status: with kidney complications Diabetes mellitus complication detail: with chronic kidney disease Chronic kidney disease stage: stage 4 (severe) Qualified Code(s): E11.22 - Type 2 diabetes mellitus with diabetic chronic kidney disease; N18.4 - Chronic kidney disease, stage 4 (severe); Z79.4 - superintendent marine oil terminal (current) use of insulin Code(s): E11.9 - Type 2 diabetes mellitus without complications Status: Acute Assessment and Plan: on Accu-Cheks and sliding-scale insulin Subjective Date/time seen: 07/05/21 11:35 Interval history: Patient is sitting up in a chair. She feels good and is eager for discharge. Exam Narrative: WDWN in NAD skin no rash head ncat lungs clear bilaterally cor reg no rub or gallop abd BS+ nontender and soft ext trace edema. Objective Data Vital Signs Vital Signs: Vital Signs - 24 hr 07/04/21 11:45 07/04/21 12:00 07/04/21 13:00 Temperature Pulse Rate 59 L 60 63 Respiratory Rate Blood Pressure 128/50 L 137/46 L Pulse Oximetry 07/04/21 14:00 07/04/21 15:15 07/04/21 15:35 Temperature 36.7 C Pulse Rate 61 61 66 Respiratory Rate 20 Blood Pressure 84/50 L 119/49 L 123/62 Pulse Oximetry 07/04/21 16:00 07/04/21 20:00 07/05/21 00:00 Temperature 36.2 C L Pulse Rate 61 62 60 Respiratory Rate 20 Blood Pressure 155/51 H Pulse Oximetry 100 07/05/21 04:00 07/05/21 05:45 07/05/21 08:00 Temperature 36.4 C L Pulse Rate 60 60 63 Respiratory Rate 20 Blood Pressure 136/51 L Pulse Oximetry 100 Intake/Output Intake/Output: Intake & Output 07/02/21 07/03/21 07/04/21 07/05/21 23:59 23:59 23:59 23:59 Intake Total 770 580 220 Output Total 50 1100 1700 Balance -50 330 -1120 220 Meds/Results Medications: Active Medications Generic Name Dose Route Start Last Admin Trade Name Freq PRN Reason Stop Dose
[2021-07-05 11:38] LABS: Glucose Point of Care 176 mg/dl (65-105)
[2021-07-05 12:00] VITALS: PULSE 62
--- NOTE | 2021-07-07 15:38 | PM.DS ---
DS: Admitting Diagnosis Discharge Date 07/05/21 Admitting Diagnosis Altered mental status acute on chronic DS: Discharge Diagnosis Discharge Diagnosis (1) Metabolic encephalopathy: Code(s): G93.41 - Metabolic encephalopathy Status: Acute Assessment and Plan: Altered mental status acute on chronic likely has underlying dementia CT head with no acute findings however noted cerebral volume loss likely frontotemporal area which has worsened compared to last year's CT scan Also associated hallucinations suggest possibly dementia related and or or delirium from underlying UTI etc MRI brain not done Neurology consulted May need follow-up with Neurology as an outpatient basis for continued monitoring Followed by psychiatrist as outpatient basis on sertraline and Seroquel Remeron at night which will be continued (2) Frequent UTI: Code(s): N39.0 - Urinary tract infection, site not specified Status: Acute Assessment and Plan: recent UTI treated with Cipro currently on trimethoprim daily UA not suggestive of the UTI currently UC NGTD (3) Gout: Qualifiers: Gout site: unspecified site Gout etiology: unspecified cause Chronicity: unspecified Qualified Code(s): M10.9 - Gout, unspecified Code(s): M10.9 - Gout, unspecified Status: Acute Assessment and Plan: Continue allopurinol (4) ESRD (end stage renal disease): Code(s): N18.6 - End stage renal disease Status: Acute Assessment and Plan: HD MWF Missed dialysis yesterday, plan for HD today Nephrology consulted, recommendations appreciated Avoid nephrotoxins Renally dose all meds Monitor renal function (5) Diabetes mellitus with neuropathy: Qualifiers: Diabetes mellitus type: type 2 Diabetes mellitus remote computer terminal operator insulin use: with remote computer terminal operator use Qualified Code(s): E11.40 - Type 2 diabetes mellitus with diabetic neuropathy, unspecified; Z79.4 - marine oil terminal superintendent (current) use of insulin Code(s): E11.40 - Type 2 diabetes mellitus with diabetic neuropathy, unspecified Status: Acute Assessment and Plan: type 2 diabetes mellitus with neuropathy intermittent hypoglycemia reported as well which can add to the hallucination and mentation problem. Hold NPH Hgb A1c 5.6 SSI, accuchecks Monitor (6) Diabetic retinopathy: Qualifiers: Diabetes mellitus type: type 2 Diabetic retinopathy severity: with unspecified retinopathy severity Diabetes mellitus macular edema: macular edema presence unspecified Laterality: unspecified laterality Qualified Code(s): E11.319 - Type 2 diabetes mellitus with unspecified diabetic retinopathy without macular edema Code(s): E11.319 - Type 2 diabetes mellitus with unspecified diabetic retinopathy without macular edema Status: Acute Assessment and Plan: Treatment as above (7) RENATE on CPAP: Code(s): G47.33 - Obstructive sleep apnea (adult) (pediatric); Z99.89 - Dependence on other enabling machines and devices Status: Acute Assessment and Plan: # RENATE on CPAP (8) Chronic acquired lymphedema: Code(s): I89.0 - Lymphedema, not elsewhere classified Status: Acute (9) GERD (gastroesophageal reflux disease): Qualifiers: Esophagitis presence: esophagitis presence not specified Qualified Code(s): K21.9 - Gastro-esophageal reflux disease without esophagitis Code(s): K21.9 - Gastro-esophageal reflux disease without esophagitis Status: Acute (10) Hypothyroidism (acquired): Code(s): E03.9 - Hypothyroidism, unspecified Status: Acute Assessment and Plan: TSH low Will continue with home dose for now Follow up with PCP, may need to adjust dose of Synthroid (11) Benign essential hypertension: Code(s): I10 - Essential (primary) hypertension Status: Acute Assessment and Plan: BP soft On Lasix Monitor (12) Hyperlipidemia: Jamie
== END 2021-07-05 16:25 | disposition home or self-care (01) ==
LOC: ANHED 17:58 → ANH3MED 23:59
PROVIDERS: General Practice; Internal Medicine Nephrology; Nurse Practitioner Adult Health; Admitting Provider Internal Medicine; Emergency Provider Emergency Medicine; PCP Internal Medicine; Visit Provider Internal Medicine Critical Care Medicine
DX: G93.41 Metabolic encephalopathy (principal); R41.82 Altered mental status, unspecified; N39.0 Urinary tract infection, site not specified; K21.9 Gastro-esophageal reflux disease without esophagitis; E11.22 Type 2 diabetes mellitus with diabetic chronic kidney disease; E11.42 Type 2 diabetes mellitus with diabetic polyneuropathy; E11.319 Type 2 diabetes mellitus with unspecified diabetic retinopathy without macular edema; E03.9 Hypothyroidism, unspecified; G47.33 Obstructive sleep apnea (adult) (pediatric); I12.0 Hypertensive chronic kidney disease with stage 5 chronic kidney disease or end stage renal disease; M10.9 Gout, unspecified; N18.6 End stage renal disease; Z79.4 Long term (current) use of insulin; Z99.2 Dependence on renal dialysis; Z79.899 Other long term (current) drug therapy
CPT/HCPCS: 36415; 51701; 70450; 71045; 80048; 80053; 80069; 81001; 82306; 82607; 82728; 82746; 82948; 83036; 84439; 84443; 84480; 85025; 85027; 85610; 85730; 86706; 87340; 93005; 96374; 97162; 97165; 99291; A9270; G0257; G0378; J1644; J7030; Q5105

== ENCOUNTER 2021-09-23 15:12 | Outpatient (NON) | payer MEDICARE, OTHER, SELFPAY ==
[2021-09-23 15:31] LABS: Add Urine Microscopic? YES; Appearance Urine Turbid (Clear); Bacteria Urine 2+ /hpf; Bilirubin Urine Negative (Negative); Budding Yeast Urine Present /hpf; Color Urine Yellow (Yellow); Glucose Urine UA Negative (Negative); Ketones Urine Negative (Negative); Leukocyte Esterase Ur 3+ LEU/UL (Negative); Nitrate Urine Negative (Negative); Protein Urine 2+ mg/dL (Negative); Specific Grav Ur 1.014 (1.001-1.035); Squamous Epithelial Cell Urine Moderate /hpf (Few); Urobilinogen Urine Negative mg/dL (<2.0); WBC Clumps Urine Present /HPF; WBC Urine >75 /hpf
[2021-09-23 15:42] LABS: Blood Urine Negative (Negative)
== END 2021-09-23 15:13 | disposition home or self-care (01) ==
LOC: ANHLAB 15:16
PROVIDERS: PCP Internal Medicine; Visit Provider Internal Medicine
DX: N39.0 Urinary tract infection, site not specified (principal)
CPT/HCPCS: 81001; 87077; 87086; 87088; 87186

== ENCOUNTER 2021-10-07 11:33 | Outpatient (CLI) | payer MEDICARE, SELFPAY ==
[2021-10-07 12:13] LABS: Basophils Percent Auto 0.4 % (0.2-1.2); Eosinophils Absolute Auto 0.1 K/mm3 (0-0.3); Hematocrit 34.1 % (37.0-47.0); Hemoglobin 10.8 g/dL (12.0-15.0); Immature Granulocyte Absolute 0.01 K/mm3 (0.00-0.031); Immature Granulocyte Percent A 0.2 % (0-0.5); Lymphocytes Absolute Auto 1.49 K/mm3 (0.9-3.2); Lymphocytes Percent Auto 28.8 % (18.3-44.2); Mean Corpuscular HGB Conc 31.7 g/dl (32-36); Mean Corpuscular Hemoglobin 30.6 pg (26-34); Mean Corpuscular Volume 96.6 fl (80-100); Monocytes Absolute Auto 0.4 K/mm3 (0.1-0.6); Monocytes Percent Auto 8.1 % (2.6-8.5); Neutrophils Absolute Auto 3.2 K/mm3 (1.3-6.7); Neutrophils Percent Auto 61.5 % (45.5-73.1); Platelet Count Result 152 k/mm3 (150-375); Red Blood Count 3.53 M/mm3 (4.2-5.4); Red Cell Distribution Width 15.6 % (11.5-14.5); White Blood Count 5.2 K/mm3 (4.5-10.0)
[2021-10-07 12:28] LABS: Alanine Aminotransferase 12 U/L (4-35); Albumin Level 3.9 g/dL (3.5-5.1); Alkaline Phosphatase 175 U/L (38-126); Anion Gap 8 mmol/L (8-16); Aspartate Amino Transferase 25 U/L (14-36); Bilirubin,Total 0.5 mg/dL (0.2-1.3); Blood Urea Nitrogen 33 mg/dL (7-17); Calcium 9.5 mg/dL (8.4-10.2); Carbon Dioxide 33 mmol/L (22-30); Chloride 92 mmol/L (98-107); Cholesterol 133 mg/dL (0-200); Estimated Glomerular Filt Rate 11; Glucose 92 mg/dL (65-110); HDL Direct 93 mg/dL; Potassium 4.8 mmol/L (3.4-5.0); Sodium 133 mmol/L (137-145); Triglycerides 59 mg/dL (<150)
[2021-10-07 12:29] LABS: Add Urine Microscopic? YES; Appearance Urine Turbid (Clear); Bilirubin Urine Negative (Negative); Color Urine Yellow (Yellow); Glucose Urine UA Negative (Negative); Ketones Urine Negative (Negative); Leukocyte Esterase Ur 3+ LEU/UL (Negative); Nitrate Urine Negative (Negative); Protein Urine 2+ mg/dL (Negative); Specific Grav Ur 1.015 (1.001-1.035); Urobilinogen Urine Negative mg/dL (<2.0); WBC Urine >75 /hpf
[2021-10-07 12:32] LABS: Blood Urine Negative (Negative)
[2021-10-07 12:46] LABS: LDL Cholesterol Direct < 30 mg/dL
[2021-10-07 12:58] LABS: Thyroid Stimulating Hormone 0.053 uIU/mL (0.465-4.680)
[2021-10-07 13:03] LABS: Hemoglobin A1C 5.9 % (<5.7)
[2021-10-07 13:24] LABS: Free T4 Free Thyroxine 1.78 ng/mL (0.78-2.19)
== END 2021-10-07 11:34 | disposition home or self-care (01) ==
LOC: ANHLAB 11:40
PROVIDERS: PCP Internal Medicine; Visit Provider Internal Medicine
DX: E03.9 Hypothyroidism, unspecified (principal); I10 Essential (primary) hypertension; E78.2 Mixed hyperlipidemia; E11.40 Type 2 diabetes mellitus with diabetic neuropathy, unspecified; Z79.4 Long term (current) use of insulin; R30.0 Dysuria
CPT/HCPCS: 36415; 80053; 80061; 81001; 83036; 84439; 84443; 85025; 87077; 87086; 87186

== ENCOUNTER 2021-11-03 10:41 | Outpatient (NON) | payer MEDICARE, OTHER, SELFPAY ==
[2021-11-03 11:10] LABS: Appearance Urine Clear (Clear); Bilirubin Urine Negative (Negative); Color Urine Yellow (Yellow); Glucose Urine UA Negative (Negative); Ketones Urine Negative (Negative); Urobilinogen Urine Negative mg/dL (<2.0)
[2021-11-03 13:46] LABS: Add Urine Microscopic? YES; Blood Urine 3+ (Negative)
[2021-11-03 13:47] LABS: Nitrate Urine Positive (Negative); Protein Urine 3+ mg/dL (Negative); pH Urine 6.5 (5.0-9.0)
[2021-11-03 13:48] LABS: Leukocyte Esterase Ur 3+ LEU/UL (Negative); WBC Urine >75 /hpf
== END 2021-11-03 10:42 | disposition home or self-care (01) ==
PROVIDERS: PCP Internal Medicine; Visit Provider Internal Medicine
DX: N39.0 Urinary tract infection, site not specified (principal)
CPT/HCPCS: 81001; 81003; 87086; 87147; 87181; 87186

== ENCOUNTER 2021-12-02 14:20 | Outpatient (CLI) | payer MEDICARE, SELFPAY ==
[2021-12-02 15:24] LABS: Add Urine Microscopic? YES; Appearance Urine Cloudy (Clear); Bacteria Urine 2+ /hpf; Bilirubin Urine Negative (Negative); Color Urine Amber (Yellow); Glucose Urine UA Negative (Negative); Ketones Urine Negative (Negative); Leukocyte Esterase Ur 3+ LEU/UL (Negative); Mucus Urine Rare /lpf; Nitrate Urine Negative (Negative); Protein Urine 2+ mg/dL (Negative); Specific Grav Ur 1.018 (1.001-1.035); Squamous Epithelial Cell Urine Occasional /hpf (Few); Urobilinogen Urine Negative mg/dL (<2.0); WBC Urine >75 /hpf
[2021-12-02 15:25] LABS: Blood Urine Negative (Negative)
== END 2021-12-02 14:21 | disposition home or self-care (01) ==
LOC: ANHLAB 14:22
PROVIDERS: PCP Internal Medicine; Visit Provider Internal Medicine
DX: N39.0 Urinary tract infection, site not specified (principal)
CPT/HCPCS: 81001; 87077; 87086; 87186

== ENCOUNTER 2021-12-23 11:43 | Outpatient (CLI) | payer MEDICARE, SELFPAY ==
[2021-12-23 12:09] LABS: Appearance Urine Turbid (Clear); Bilirubin Urine Negative (Negative); Blood Urine 2+ (Negative); Color Urine Yellow (Yellow); Glucose Urine UA Negative (Negative); Ketones Urine Trace mg/dL (Negative); Leukocyte Esterase Ur 2+ LEU/UL (Negative); Nitrate Urine Negative (Negative); Protein Urine 2+ mg/dL (Negative); Urobilinogen Urine 0.2 mg/dL (<2.0); pH Urine 7.5 (5.0-9.0)
[2021-12-23 12:13] LABS: Squamous Epithelial Cell Urine Few /hpf (Few); WBC Clumps Urine Present /HPF; WBC Urine >75 /hpf
[2021-12-23 12:19] LABS: Add Urine Microscopic? YES
== END 2021-12-23 11:44 | disposition home or self-care (01) ==
PROVIDERS: PCP Internal Medicine; Visit Provider Internal Medicine
DX: N39.0 Urinary tract infection, site not specified (principal)
CPT/HCPCS: 81001; 87086; 87088

== ENCOUNTER 2022-01-20 16:34 | Outpatient (NON) | payer MEDICARE, SELFPAY ==
[2022-01-20 17:33] LABS: Add Urine Microscopic? YES; Appearance Urine Turbid (Clear); Bacteria Urine 1+ /hpf; Bilirubin Urine Negative (Negative); Blood Urine 1+ (Negative); Color Urine Yellow (Yellow); Glucose Urine UA Negative (Negative); Ketones Urine Negative (Negative); Leukocyte Esterase Ur 3+ LEU/UL (Negative); Nitrate Urine Negative (Negative); Protein Urine 2+ mg/dL (Negative); Specific Grav Ur 1.017 (1.001-1.035); Urobilinogen Urine Negative mg/dL (<2.0); WBC Clumps Urine Present /HPF; WBC Urine >75 /hpf
== END 2022-01-20 16:35 | disposition home or self-care (01) ==
PROVIDERS: PCP Internal Medicine; Visit Provider Internal Medicine
DX: N39.0 Urinary tract infection, site not specified (principal)
CPT/HCPCS: 81001; 87077; 87086; 87186

== ENCOUNTER 2022-01-31 10:25 | Outpatient (CLI) | payer MEDICARE, SELFPAY ==
[2022-01-31 12:02] LABS: Appearance Urine Cloudy (Clear); Bilirubin Urine Negative (Negative); Blood Urine 1+ (Negative); Color Urine Yellow (Yellow); Glucose Urine UA Negative (Negative); Ketones Urine Trace mg/dL (Negative); Leukocyte Esterase Ur 3+ LEU/UL (Negative); Nitrate Urine Negative (Negative); Protein Urine 2+ mg/dL (Negative); Urobilinogen Urine 0.2 mg/dL (<2.0)
[2022-01-31 12:18] LABS: Bacteria Urine 1+ /hpf; Squamous Epithelial Cell Urine Many /hpf (Few); WBC Clumps Urine Present /HPF; WBC Urine >75 /hpf
[2022-01-31 12:21] LABS: Add Urine Microscopic? YES
== END 2022-01-31 10:26 | disposition home or self-care (01) ==
LOC: ANHLAB 10:27
PROVIDERS: PCP Internal Medicine; Visit Provider Internal Medicine
DX: N39.0 Urinary tract infection, site not specified (principal)
CPT/HCPCS: 81001; 87086; 87147; 87181; 87186

== ENCOUNTER 2022-02-16 09:29 | Outpatient (NON) | payer MEDICARE, SELFPAY ==
[2022-02-16 09:48] LABS: Appearance Urine Slightly Cloudy (Clear); Bilirubin Urine Negative (Negative); Blood Urine Negative (Negative); Color Urine Yellow (Yellow); Glucose Urine UA Negative (Negative); Ketones Urine Trace mg/dL (Negative); Leukocyte Esterase Ur 1+ LEU/UL (Negative); Nitrate Urine Negative (Negative); Protein Urine 2+ mg/dL (Negative); Urobilinogen Urine 0.2 mg/dL (<2.0); pH Urine 6.5 (5.0-9.0)
[2022-02-16 09:52] LABS: Add Urine Microscopic? YES
[2022-02-16 10:01] LABS: Mucus Urine Rare /lpf; RBC Urine 0-2 /hpf (0-2); Squamous Epithelial Cell Urine Moderate /hpf (Few); WBC Urine 31-50 /hpf
== END 2022-02-16 09:30 | disposition home or self-care (01) ==
LOC: ANHLAB 09:31
PROVIDERS: PCP Internal Medicine; Visit Provider Internal Medicine
DX: N39.0 Urinary tract infection, site not specified (principal)
CPT/HCPCS: 81001; 87086; 87088

== ENCOUNTER 2022-03-03 12:23 | Outpatient (NON) | payer MEDICARE, SELFPAY ==
[2022-03-03 12:38] LABS: Appearance Urine Cloudy (Clear); Bilirubin Urine 1+ (Negative); Blood Urine Trace-lysed (Negative); Color Urine Yellow (Yellow); Glucose Urine UA Negative (Negative); Ketones Urine Trace mg/dL (Negative); Leukocyte Esterase Ur 3+ LEU/UL (Negative); Nitrate Urine Negative (Negative); Protein Urine 2+ mg/dL (Negative); Urobilinogen Urine 0.2 mg/dL (<2.0); pH Urine 5.5 (5.0-9.0)
[2022-03-03 12:53] LABS: Bacteria Urine Trace /hpf; Squamous Epithelial Cell Urine Rare /hpf (Few); WBC Clumps Urine Present /HPF; WBC Urine >75 /hpf
[2022-03-03 12:59] LABS: Add Urine Microscopic? YES
== END 2022-03-03 12:24 | disposition home or self-care (01) ==
PROVIDERS: PCP Internal Medicine; Visit Provider Internal Medicine
DX: N39.0 Urinary tract infection, site not specified (principal)
CPT/HCPCS: 81001; 87077; 87086; 87088; 87186

== ENCOUNTER 2022-03-05 20:28 | Inpatient (IN) | payer MEDICARE, SELFPAY ==
--- NOTE | ~2022-03-05 | CT_ITS ---
EXAMINATION: CT abdomen pelvis wo con DATE: 03/06/2022 20:41 INDICATION: Kidney stones, hydronephrosis TECHNIQUE: Computed tomography (CT) of the abdomen and pelvis was performed without intravenous contr ast. Automated exposure control and iterative reconstruction technique were employed. Exam dose: 108 8.42 mGy-cm total exam DLP. COMPARISON: 07/21/[address] abdomen pelvis FINDINGS: Cardiomegaly. Right ventricular apex lead. Status post sternotomy.. There is little valve replacement and aortic valve replacement or calcificat ion. Recommend correlation with surgical history. There is extensive coronary artery calcification. There is severe abdominal aortic, celiac, superior mesenteric, hepatic, splenic and extensive renal a rtery calcifications in addition to prominent calcification of the inferior mesenteric artery and com mon iliac, external and internal iliac and femoral arteries. No pericardial effusion. Mild right and minimal left pleural effusion. There is bilateral predominantly dependent lower lobe atelectasis. There is an approximately 1.8 cm probable sebaceous cyst in the left lower anterior chest wall. No hepatic, splenic, pancreatic, and adrenal space-occupying mass lesion. 7.5 cm exophytic right renal cyst. 2.3 cm exophytic soft tissue mass at the posterior lateral margin of the left renal upper pole with a ttenuation of 38 Hounsfield units, likely a hemorrhagic cyst; differential diagnosis includes less li janene renal malignancy. No ureteral calculus or hydroureteronephrosis. The urinary bladder is unremarkable. The uterus and adnexal areas are unremarkable. Normal appendix. There is a prominent of fecal material in the colon but no bowel obstruction. No int raperitoneal free air. 2 cm wide left ventral abdominal wall fat-containing hernia, the hernia sac me asures up to 5.8 cm transverse dimension. 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 There is prominent cupping of the inferior vertebral endplate of L2 consistent with compression fract ure of uncertain age. There is severe degenerative disc disease and mild retrolisthesis at L4-5. There is severe degenerative disc disease and grade 1 anterolisthesis at L5-S1. Is prominent degenera tive change at the apophyseal joints of the lumbar spine, especially at L5-S1. Bilateral hip osteoarthritis. IMPRESSION: Severe calcified atherosclerosis Cardiomegaly, cardiac valve replacement Right ventricular apex lead Mild right minimal left pleural effusion Bilateral predominantly dependent lower lobe atelectasis 2.3 cm exophytic soft tissue mass of left kidney, possibly hemorrhagic/complicated cyst; less likely would be renal malignancy Fat-containing left ventral abdominal wall hernia L2 compression fracture of uncertain age Reviewed, dictated and finalized at [facility]. Reviewed, dictated and finalized at location A. IMPRESSION: Severe calcified atherosclerosis Cardiomegaly, cardiac valve replacement Right ventricular apex lead Mild right minimal left pleural effusion Bilateral predominantly dependent lower lobe atelectasis 2.3 cm exophytic soft tissue mass of left kidney, possibly hemorrhagic/complica rosi cyst; less likely would be renal malignancy Fat-containing left ventral abdominal wall hernia L2 compression fracture of uncertain age
--- NOTE | ~2022-03-05 | XR_ITS ---
XR humerus LT DATE: 03/05/2022 21:43 INDICATION: Fall one week ago. Pain when bending arm TECHNIQUE: AP and lateral views COMPARISON: None FINDINGS: There is osteopenia. No fracture or dislocation of the left humerus. No periosteal reaction or bone destruction. Prominent arterial calcification. IMPRESSION: Osteopenia; no fracture or dislocation Reviewed, dictated and finalized at location A.
--- NOTE | ~2022-03-05 | XR_ITS ---
XR knee LT 3V DATE: 03/05/2022 21:43 INDICATION: Fall one week ago. Bruising of left knee catheter TECHNIQUE: 3 views COMPARISON: None FINDINGS: There is osteopenia. There is tricompartment osteoarthritis, particularly severe at the patellofemoral and medial compartm ents. There is suprapatellar knee joint effusion. No fracture or dislocation, periosteal reaction or bone d estruction is detected. Prominent femoral and popliteal and trifurcation artery calcifications. IMPRESSION: Suprapatellar knee joint effusion No fracture or dislocation is evident Prominent tricompartment osteoarthritis, particularly severe at patellofemoral and medial compartment s Osteopenia Prominent arterial calcifications Reviewed, dictated and finalized at location A. IMPRESSION: Suprapatellar knee joint effusion No fracture or dislocation is evident Prominent tricompartment osteoarthritis, particularly severe at patellofemoral and medial compartments Osteopenia Prominent arterial calcifications
--- NOTE | ~2022-03-05 | US_ITS ---
EXAMINATION: US venous doppler [facility] DATE: 03/08/2022 13:10 INDICATION: Leg pain . TECHNIQUE: Grayscale images without and with compression and Doppler images of the bilateral lower ex tremity veins were obtained. COMPARISON: None FINDINGS: The right common femoral vein, profunda (deep) femoral vein, femoral vein, popliteal vein, peroneal v ein, posterior tibial veins, gastrocnemius vein, and greater saphenous vein are patent. The left common femoral vein, profunda femoral vein, femoral vein, popliteal vein, peroneal vein, pos terior tibial veins, gastrocnemius vein, and greater saphenous vein are patent. IMPRESSION: 1. Patent bilateral lower extremity veins. No evidence of deep venous thrombosis Reviewed, dictated and finalized at location K. IMPRESSION: 1. Patent bilateral lower extremity veins. No evidence of deep venous thrombos is
--- NOTE | ~2022-03-05 | CT_ITS ---
EXAMINATION: CT brain wo con DATE: 03/05/2022 21:46 INDICATION: Altered mental state. Transient alteration of awareness. Fall one week ago. TECHNIQUE: Computed tomography (CT) of the head was performed without intravenous contrast. The mA wa s adjusted according to patient size. Iterative reconstruction technique was employed. Exam dose: 60 5.33 mGy-cm total exam DLP. COMPARISON: 07/02/2021 CT brain FINDINGS: Prominent bilateral vertebral artery and carotid siphon internal carotid artery calcificati ons. There is nonspecific diminished attenuation of the cerebral white matter, likely due to chronic small vessel ischemic changes. Chronic bilateral basal ganglia lacunar infarcts. There is cerebral and cerebellar volume loss. No intracranial mass lesion or hemorrhage. No midline shift or mass effect effect. No subdural or epi dural hematoma. Included mastoid air cells and paranasal sinuses are normally developed and aerated. No fracture or bone destruction of the cranial vault. IMPRESSION: Cerebral atherosclerosis and chronic small vessel ischemic changes of the cerebral white matter Chronic bilateral basal ganglia lacunar infarcts No acute intracranial finding Reviewed, dictated and finalized at [facility]. Reviewed, dictated and finalized at location A.
--- NOTE | ~2022-03-05 | XR_ITS ---
XR hip LT 2V w AP pelvis DATE: 03/05/2022 21:43 INDICATION: Fall one week ago. Pain and cramping. TECHNIQUE: AP pelvis. AP and lateral views of left hip COMPARISON: None FINDINGS: There is osteopenia. No pelvic fracture or bone destruction. The pubic symphysis and sacral iliac joints appear intact. No fracture or bone destruction or avascular necrosis of left hip. Iliac and femoral artery extensive calcifications. IMPRESSION: Osteopenia No pelvic fracture or left hip fracture or dislocation is detected Reviewed, dictated and finalized at location A.
--- NOTE | ~2022-03-05 | XR_ITS ---
XR chest 1V portable 03/08/2022 12:44 Indication: Shortness of breath. Chest palpitations. Procedure: AP portable chest Comparison: Comparison to multiple prior studies sequentially, with oldest reviewed study dated 05/2022. Findings: Status post median sternotomy for CABG. Cardiomegaly. Persistent right basilar infiltrates. Possible small effusion. No pneumothorax. There is a vascular stent in the right subclavian location as well as the proximal arm. Impression: 1: Persistent right basilar infiltrates which may represent atelectasis or pneumonia. 2: Cardiomegaly. Reviewed, dictated and finalized at location A. Impression: 1: Persistent right basilar infiltrates which may represent atelectasis or pneu monia. 2: Cardiomegaly.
--- NOTE | ~2022-03-05 | XR_ITS ---
XR chest 1V DATE: 03/05/2022 21:45 INDICATION: Dyspnea TECHNIQUE: Supine AP view COMPARISON: 07/02/2021 portable AP chest FINDINGS: Status post sternotomy and cardiac valve replacement. Mild cardiomegaly. Is aortic arch niecy cification. Left-sided transvenous pacemaker device with lead overlying right ventricular apex. Minimal infiltrate or atelectasis is suggested at the lung bases and right midlung. Chronic minimal blunting of left costophrenic angle. Vascular stent overlies the right subclavian artery. Osteopenia. Degenerative spurring and mild dextro scoliosis of the thoracic spine. IMPRESSION: Minimal infiltrate or atelectasis at right mid and both lower lungs Reviewed, dictated and finalized at location A.
--- NOTE | ~2022-03-05 | XR_ITS ---
XR forearm LT 2V DATE: 03/05/2022 21:42 INDICATION: Fall one week ago. Pain when bending the left arm TECHNIQUE: 2 views COMPARISON: None FINDINGS: No fracture or dislocation, periosteal reaction or bone destruction. Extensive arterial calcification, including metatarsal artery calcification. IMPRESSION: Extensive arterial calcifications suggesting diabetes No fracture or dislocation Reviewed, dictated and finalized at location A.
--- NOTE | ~2022-03-05 | US_ITS ---
EXAMINATION: US renal BI DATE: 03/09/2022 15:41 INDICATION: Left kidney mass. TECHNIQUE: Multiple ultrasound grayscale images of the kidneys were obtained. COMPARISON: CT abdomen and pelvis 03/06/2022 FINDINGS: The right kidney measures 9.6 x 4.8 x 6.3 cm. The left kidney measures 12.1 x 5.9 x 4.2 cm. The kidne ys demonstrate normal parenchymal echogenicity. There are cysts in the kidneys measuring up to 2.2 cm on the left. There is no hydronephrosis. The bladder is normal. IMPRESSION: 1. Benign cysts in the kidneys. Reviewed, dictated and finalized at location B.
--- NOTE | ~2022-03-05 | XR_ITS ---
XR ankle LT min 3V DATE: 03/05/2022 21:42 INDICATION: Fall one week ago. Bruising, swelling TECHNIQUE: 4 views COMPARISON: None FINDINGS: There is generalized very prominent soft tissue swelling of the ankle and foot. There is moderate tibiotalar osteoarthritis. There is very prominent plantar and posterior calcaneal enthesopathy. There is prominent osteoarthritic change at the tarsal and tarsometatarsal joints. There is extensive calcification of the anterior and posterior tibial arteries and dorsalis pedis art jacki, suggesting diabetes. IMPRESSION: Polyarticular osteoarthritis, including tibiotalar and tarsal and tarsometatarsal joints Severe plantar and posterior calcaneal enthesopathy Polyarticular calcifications suggesting diabetes Prominent soft tissue swelling of the ankle and foot No fracture or dislocation, periosteal reaction or bone destruction is identified Reviewed, dictated and finalized at location A. IMPRESSION: Polyarticular osteoarthritis, including tibiotalar and tarsal and t arsometatarsal joints Severe plantar and posterior calcaneal enthesopathy Polyarticular calcifications suggesting diabetes Prominent soft tissue swelling of the ankle and foot No fracture or dislocation, periosteal reaction or bone destruction is identifi ed
[2022-03-05 20:40] VITALS: PULSE 60
[2022-03-05 20:41] VITALS: O2SAT 100
[2022-03-05 20:43] VITALS: PULSE 60; RESP 28; O2SAT 100
--- NOTE | 2022-03-05 21:02 | ECG_ITS ---
Measurements Intervals [place] Rate: 60 P: PA: 0 QRS: -75 QRSD: 175 T: 115 QT: 517 QTc: 517 Interpretive Statements ELECTRONIC VENTRICULAR PACEMAKER ABNORMAL RHYTHM ECG COMPARED TO ECG 07/02/2021 14:56:50 NO SIGNIFICANT CHANGES Electronically Signed On 03-06-2022 14:05:12 CDT by Ja Aparicio M.D.
--- NOTE | 2022-03-05 21:12 | ED.SOB ---
HPI - SOB/Dyspnea General Chief Complaint: Shortness of Breath/Dyspnea Stated Complaint: SHORTNESS OF BREATH Time Seen by Provider: 03/05/22 20:52 Source: family History of Present Illness HPI Narrative: Patient presents with shortness of breath. Reports she has been acting more confused over the past several days consistent with she presents with a urinary tract infection. Primary care doctor urine was sent for culture results returned today and she was diagnosed with a UTI and has not been on any antibiotics. That she has been complaining of pain, thinks related to a fall she had approximately 1 week ago when she was in respite care the fall was unclear surrounding circumstances. Does not appear she was evaluated at that time. There was concern that she has had progressive worsening bruising of her left lower extremity and left arm. Pain is trying to control her pain with tramadol and shortly after she started complaining of shortness of breath. Not a typical response when she gets tramadol. Given complaints of shortness of breath she was referred to the ER for further evaluation. Related Data Home Medications Medication Instructions Recorded Confirmed sevelamer HCl 800 mg tablet 1,600 mg PO TID 08/20/20 03/06/22 Lactobacillus 1 cap PO DAILY 02/26/21 03/06/22 no.51-Bifidobacterium no.4 50 billion cell capsule (up4 Probiotics Ultra) aspirin 81 mg tablet,delayed 81 mg PO HS 02/26/21 03/06/22 release (Adult Low Dose Aspirin) biotin 1,000 mcg chewable tablet 100 mcg PO QPM 02/26/21 03/06/22 d-mannose 500 mg capsule 1,000 mg PO BID 07/02/21 03/06/22 allopurinol 100 mg tablet 100 mg PO QHS 03/06/22 buspirone 10 mg tablet 10 mg PO BID 03/06/22 03/06/22 cyclobenzaprine 5 mg tablet 10 mg PO DAILY 03/06/22 03/06/22 insulin NPH isoph U-100 human 100 See Rx Instructions subcut 03/06/22 03/06/22 unit/mL subcutaneous suspension .COMPLEX PRN BLOOD SUGAR (Humulin N NPH U-100 Insulin (isophane susp)) levothyroxine 88 mcg tablet 80 mcg PO DAILY 03/06/22 03/06/22 ondansetron 8 mg disintegrating 4 mg translingual Q6H PRN NAUSEA 03/06/22 tablet quetiapine 25 mg tablet 25 mg PO QAM 03/06/22 quetiapine 25 mg tablet 50 mg PO QHS 03/06/22 03/06/22 simvastatin 40 mg tablet 40 mg PO QHS 03/06/22 trazodone 50 mg tablet 50 mg PO QHS 03/06/22 03/06/22 Allergies Allergy/AdvReac Type Severity Reaction Status Date / Time amoxicillin Allergy Unknown Unknown Verified 02/17/22 15:18 clavulanic acid Allergy Unknown Unknown Verified 02/17/22 15:18 Penicillins Allergy Unknown Other Verified 02/17/22 15:18 Sulfa (Sulfonamide Allergy Unknown Unknown Verified 02/17/22 15:18 Antibiotics) sulfamethoxazole Allergy Unknown Unknown Verified 02/17/22 15:18 Review of Systems Review of Systems: ROS unobtainable: Yes unobtainable due to medical condition PMFSH Past Medical History Medical History A-fib Abdominal pain Abnormal bruising Abrasion Alopecia Altered mental status Benign essential hypertension Blood blister BMI 29.0-29.9,adult BMI 30.0-30.9,adult BMI 30.0-30.9,adult BMI 31.0-31.9,adult BMI 32.0-32.9,adult BMI 33.0-33.9,adult Callus of foot Chronic acquired lymphedema Chronic pain Congestion of both ears Constipation Contusion of lower extremity Diabetes mellitus with neuropathy Diabetic retinopathy DM type 2 (diabetes mellitus, type 2) Dysuria Encounter for routine adult health examination without abnormal findings ESRD (end stage renal disease) Follow up Frequent UTI GERD (gastroesophageal reflux disease) Gout Hyperlipidemia Hypothyroidism (acquired) Nausea 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
--- NOTE | 2022-03-05 21:32 | PC.NURSE ---
Pt in radiology at this time.
[2022-03-05 22:04] VITALS: O2SAT 100
[2022-03-05 22:13] LABS: Basophils Percent Auto 0.2 % (0.2-1.2); Eosinophils Absolute Auto 0.1 K/mm3 (0-0.3); Eosinophils Percent Auto 1.1 % (0-4.4); Hematocrit 28.6 % (37.0-47.0); Hemoglobin 8.8 g/dL (12.0-15.0); Immature Granulocyte Absolute 0.01 K/mm3 (0.00-0.031); Immature Granulocyte Percent A 0.2 % (0-0.5); Lymphocytes Absolute Auto 0.74 K/mm3 (0.9-3.2); Lymphocytes Percent Auto 13.5 % (18.3-44.2); Mean Corpuscular HGB Conc 30.8 g/dl (32-36); Mean Corpuscular Hemoglobin 30.8 pg (26-34); Mean Platelet Volume 9.8 fl (7.4-10.4); Monocytes Absolute Auto 0.3 K/mm3 (0.1-0.6); Monocytes Percent Auto 5.3 % (2.6-8.5); Neutrophils Absolute Auto 4.4 K/mm3 (1.3-6.7); Neutrophils Percent Auto 79.7 % (45.5-73.1); Platelet Count Result 148 k/mm3 (150-375); Red Blood Count 2.86 M/mm3 (4.2-5.4); White Blood Count 5.5 K/mm3 (4.5-10.0)
[2022-03-05 22:27] LABS: Alanine Aminotransferase 13 U/L (6-35); Alkaline Phosphatase 131 U/L (38-126); Anion Gap 1 mmol/L (8-16); Aspartate Amino Transferase 26 U/L (14-36); Blood Urea Nitrogen 40 mg/dL (7-17); Calcium 8.6 mg/dL (8.4-10.2); Carbon Dioxide 35 mmol/L (22-30); Chloride 97 mmol/L (98-107); Estimated CRCL calculation 10 ml/min; Estimated Glomerular Filt Rate 10; Glucose 177 mg/dL (65-110); Potassium 5.1 mmol/L (3.4-5.0); Sodium 133 mmol/L (137-145)
[2022-03-05] MEDS: SODIUM CHLORIDE 0.9% IV 500 ML 999 ML IV CONT (22:32)
[2022-03-05 23:30] LABS: Appearance Urine Clear (Clear); Bilirubin Urine 1+ (Negative); Blood Urine 2+ (Negative); Color Urine Yellow (Yellow); Glucose Urine UA Negative (Negative); Ketones Urine 1+ mg/dL (Negative); Leukocyte Esterase Ur 3+ LEU/UL (Negative); Nitrate Urine Negative (Negative); Protein Urine 3+ mg/dL (Negative); Urobilinogen Urine 0.2 mg/dL (<2.0); pH Urine 5.5 (5.0-9.0)
[2022-03-05 23:37] LABS: WBC Clumps Urine Present /HPF; WBC Urine >75 /hpf
[2022-03-05 23:51] LABS: Add Urine Microscopic? YES
[2022-03-06] VITALS (11 sets, daily range): BP systolic 118–151; BP diastolic 60–71; PULSE 59–72; RESP 13–22; TEMP 36.1–36.9; O2SAT 96–100; BMI 29.9
--- NOTE | 2022-03-06 01:56 | PC.NURSE ---
This patient, Diane Rojas, was admitted to 2 Medical Room 248-01. Patient/family oriented to hospital policies and general routines including ID bracelet, bed and alarms, visiting hours, pain management, procedures, bathroom and other care routines, personal items, smoking policy, room service/diet, and visiting hours. Information on how to activate the Rapid Response Team has been discussed. Patient/Family are encouraged to report perceived risks to care and to ask questions if they do not understand what they are told or what they should do.
[2022-03-06] MEDS: traMADol HCL (*CRX) 50 MG TABLET PO (08:08)
[2022-03-06 08:42] LABS: Basophils Percent Auto 0.4 % (0.2-1.2); Eosinophils Absolute Auto 0.2 K/mm3 (0-0.3); Eosinophils Percent Auto 2.9 % (0-4.4); Hematocrit 29.7 % (37.0-47.0); Hemoglobin 9.5 g/dL (12.0-15.0); Immature Granulocyte Absolute 0.01 K/mm3 (0.00-0.031); Immature Granulocyte Percent A 0.1 % (0-0.5); Lymphocytes Absolute Auto 1.42 K/mm3 (0.9-3.2); Lymphocytes Percent Auto 20.9 % (18.3-44.2); Mean Corpuscular Hemoglobin 31.3 pg (26-34); Mean Corpuscular Volume 97.7 fl (80-100); Mean Platelet Volume 10.4 fl (7.4-10.4); Monocytes Absolute Auto 0.5 K/mm3 (0.1-0.6); Monocytes Percent Auto 7.6 % (2.6-8.5); Neutrophils Absolute Auto 4.6 K/mm3 (1.3-6.7); Neutrophils Percent Auto 68.1 % (45.5-73.1); Platelet Count Result 154 k/mm3 (150-375); Red Blood Count 3.04 M/mm3 (4.2-5.4); White Blood Count 6.8 K/mm3 (4.5-10.0)
[2022-03-06 08:55] LABS: Alanine Aminotransferase 12 U/L (6-35); Albumin Level 3.5 g/dL (3.5-5.1); Alkaline Phosphatase 141 U/L (38-126); Anion Gap 5 mmol/L (8-16); Aspartate Amino Transferase 24 U/L (14-36); Bilirubin,Total 0.7 mg/dL (0.2-1.3); Blood Urea Nitrogen 42 mg/dL (7-17); Carbon Dioxide 31 mmol/L (22-30); Chloride 97 mmol/L (98-107); Estimated CRCL calculation 10 ml/min; Estimated Glomerular Filt Rate 10; Glucose 111 mg/dL (65-110); Potassium 5.1 mmol/L (3.4-5.0); Sodium 133 mmol/L (137-145)
[2022-03-06] MEDS: LEVOTHYROXINE SODIUM 88 MCG TABLET PO (09:28)
[2022-03-06] MEDS: FUROSEMIDE 40 MG TABLET PO ×2 (09:28→18:23)
[2022-03-06] MEDS: PANTOPRAZOLE 40 MG TABLET PO ×2 (09:28→18:22)
[2022-03-06] MEDS: SERTRALINE HCL 50 MG TABLET PO (09:28)
[2022-03-06] MEDS: busPIRone HCL 10 MG TABLET PO ×2 (09:28→18:23)
[2022-03-06] MEDS: SEVELAMER CARBONATE 800 MG TABLET 1600 MG PO ×3 (09:28→18:21)
[2022-03-06] MEDS: INSULIN HUMAN NPH (*BKC) 100 UNITS/ML 35 UNITS SUB-Q (09:32)
[2022-03-06 09:34] LABS: Thyroid Stimulating Hormone Reflex 0.098 uIU/mL (0.465-4.68)
[2022-03-06 09:47] LABS: Glucose Point of Care 104 mg/dl (65-105)
[2022-03-06 10:19] LABS: Hemoglobin A1C 5.8 % (<5.7)
--- NOTE | 2022-03-06 11:40 | PM.CNNEP ---
Assessment and Plan Additional Plan 1. Diane has end-stage renal disease. She is due for dialysis today. Unfortunately the dialysis team is doing emergencies. We will probably do her treatment tomorrow. Her labs are okay. Volume status is okay. She had dialysis on Wednesday and Wednesday and did well. 2. The patient has anemia. Hemoglobin is 9.5. This is likely due to end-stage renal disease. Will give her Epogen with dialysis. 3. The patient has hypertension. Her blood pressure is well controlled 4. the patient has a UTI. She is on antibiotics for this. Urine culture is pending 5. mental status. The patient seems better than she was last week. 6. The patient has diabetes. She is on meds per hospitalist. A1c is 5.8 7. 8. History of Present Illness Reason for Consult Consult date: 03/06/22 Chief Complaint Chief complaint: uti History of Present Illness Narrative: Diane is a very pleasant 86-year-old lady who has multiple medical problems including end-stage renal disease on dialysis 3 times a week, recurrent bladder infections under the care of Dr. Bell, renal osteodystrophy, chronic anemia due to kidney disease, diabetes, hypothyroidism, gout, hypertension, GERD, sleep apnea on a CPAP mask. She has been having dialysis 3 times a week. She has tolerated these treatments well. The patient has been having recurrent bladder infections. These were extremely frequent and then she was referred to Dr. Bell who evaluated her and felt that chronic suppressive antibiotics might help. This actually worked for quite a while. When she has bladder infections she does not have much in the way of symptoms she just becomes very confused. As stated above these episodes have not happen very frequently since on chronic suppressive antibiotics. During the last few weeks the patient developed a bladder infection. She was placed on antibiotics by Dr. Bell. It did not seem to get her better like antibiotics had before. So she went to see Dr. Pratt, her PCP. He placed her on Keflex recently. Unfortunately she still did not get better and in fact she got even more confused over the last couple of days. About a week ago she fell and bruised her left lower extremity and left arm. The discomfort from this fall worse in the last couple days as well. Today the patient seems more together. She recognized me. She remembers falling. She does not remember much of yesterday though. She has no trouble urinating today. No suprapubic or abdominal discomfort. No frequency of urination. Review of Systems Constitutional: Constitutional: Reports no additional constitutional complaints Eyes: Eyes: Reports no additional eye complaints ENT: Reports system reviewed and no additional complaints, except as documented Cardiovascular: Cardiovascular: Reports no additional cardiovascular complaints Respiratory: Respiratory: Reports no additional respiratory complaints Gastrointestinal: Gastrointestinal: Reports no additional gastrointestinal complaints Genitourinary: Genitourinary: Reports no additional female genitourinary complaints Musculoskeletal: Musculoskeletal: Reports no additional musculoskeletal complaints Integumentary/Breasts: Skin/Breast: Reports system reviewed and no additional complaints, except as docu Neurologic: Reports system reviewed and no additional complaints, except as documented Psychiatric: Psychiatric: Reports no additional psychiatric complaints Endocrine: Endocrine: Reports no additional endocrine complaints PMFSH Past Medical History Medical History A-fib Abdominal pain Abnormal bruising Abrasion Alopecia Altered mental status Benign essential hypertension Blood blister BMI 29.0-29.9,adult BMI 30.0-30.9,adult BMI 30.0-30.9,adult BMI 31.0-31.9,adult BMI 32.0-32.9,adult BMI 33.0-33.9,adult Callus of foot Chroni
[2022-03-06 12:20] LABS: Glucose Point of Care 48 mg/dl (65-105)
[2022-03-06] MEDS: GLUCOSE ORAL GEL 15 GM OF GLUCSE IN 37.5 GM TUBE PO (12:34)
[2022-03-06 12:35] LABS: Free T4 Free Thyroxine Reflex 1.69 ng/dL (0.78-2.19)
[2022-03-06 13:18] LABS: Glucose Point of Care 84 mg/dl (65-105)
--- NOTE | 2022-03-06 14:34 | PCNSR ---
On 03/06/22, the student, Leeann Lovell, provided care and completed [facility] documentation on this patient. I have reviewed the student's documentation and agree with the findings.
--- NOTE | 2022-03-06 15:25 | PM.IMHP ---
H&P: HPI History of Present Illness Date/Time: 03/06/22 15:25 Chief Complaint: Confusion Narrative: 86-year-old female past medical history of diabetes mellitus, ESRD on hemodialysis, hypertension, hyperlipidemia, hypothyroidism obstructive sleep apnea atrial fibrillation who presents to our care for the shortness of breath after receiving tramadol, and about 1 week of confusion. The patient had an outpatient urinalysis performed on 03/03 which grew Enterococcus sensitive to vancomycin, which was initiated in the ER. Patient has frequent UTIs which grow Enterococcus sensitive to vancomycin. She is under the care of Urology, Dr. Bell. Patient reports a potential fall 1 week ago, though she does not remember specific details. She does have significant bruising on the left side of her body from her calf up to her neck. Upon speaking to the patient today, she was A&O x3, however she states she gets very easily confused with the amount of doctor's visits and medications that she is receiving. She states her daughter Yesenia manages most of these things and feels it is okay to discuss this with her daughter. Patient endorses pain in the buttocks due to a lesion that she has been dealing with with for over 10 years. She did decline to allow me to examine this today. She has significant lower extremity edema which she says is normal for her. She denies any chest pain, current shortness of breath, abdominal pain, or pain in calves. ER diagnostics significant for plain films of the hip and pelvis, left knee, left humerus, ankle, forearm, head CT with no acute findings or fractures. Chest x-ray showed minimal infiltrates or atelectasis at the right mid and lower lungs. Urine was significant for 3+ protein, 2+ blood 3+ leuk esterase and more than 75 urine wbc's. Cultures pending. Lactic acid was 1. No leukocytosis. EKG showed electronic ventricular pacing, no AFib. Patient is a poor historian and hard of hearing. Review of Systems Review of Systems: All systems reviewed & are unremarkable except as noted in HPI and below PMFSH Past Medical History Medical History A-fib Abdominal pain Abnormal bruising Abrasion Alopecia Altered mental status Benign essential hypertension Blood blister BMI 29.0-29.9,adult BMI 30.0-30.9,adult BMI 30.0-30.9,adult BMI 31.0-31.9,adult BMI 32.0-32.9,adult BMI 33.0-33.9,adult Callus of foot Chronic acquired lymphedema Chronic pain Congestion of both ears Constipation Contusion of lower extremity Diabetes mellitus with neuropathy Diabetic retinopathy DM type 2 (diabetes mellitus, type 2) Dysuria Encounter for routine adult health examination without abnormal findings ESRD (end stage renal disease) Follow up Frequent UTI GERD (gastroesophageal reflux disease) Gout Hyperlipidemia Hypothyroidism (acquired) Nausea On long-term drug therapy RENATE on CPAP Renal failure UTI (urinary tract infection) Family History Family History Mother Diabetes mellitus Sibling Diabetes mellitus Cerebrovascular accident Social History Social History Smoking status: Never smoker Alcohol intake: never Substance use: never Spiritual care concerns: No Meds Home Medications and Allergies Home Medications Medication Instructions Recorded Confirmed Type sevelamer HCl 800 mg tablet 1,600 mg PO TID 08/20/20 03/06/22 History Lactobacillus 1 cap PO DAILY 02/26/21 03/06/22 History no.51-Bifidobacterium no.4 50 billion cell capsule (up4 Probiotics Ultra) aspirin 81 mg tablet,delayed 81 mg PO HS 02/26/21 03/06/22 History release (Adult Low Dose Aspirin) biotin 1,000 mcg chewable tablet 100 mcg PO QPM 02/26/21 03/06/22 History omeprazole 40 mg capsule,delayed 40 mg PO BID #180 caps 05/09/21 03/06/22 Rx release d-ma
[2022-03-06 15:34] LABS: Total Triiodothyronine (T3) 0.76 NG/ML (0.97-1.69)
[2022-03-06] MEDS: DEXTROSE 50% 25 GM/50 ML SYRINGE IV PUSH (16:30)
[2022-03-06 16:51] LABS: Glucose Point of Care 39 mg/dl (65-105)
[2022-03-06 16:51] LABS: Glucose Point of Care 93 mg/dl (65-105)
[2022-03-06] MEDS: ONDANSETRON INJ 4 MG/2 ML VIAL IV PUSH (16:55)
[2022-03-06] MEDS: QUEtiapine FUMARATE 25 MG TABLET 50 MG PO (20:21)
[2022-03-06] MEDS: traZODone HCL 50 MG TABLET PO (20:21)
[2022-03-06] MEDS: ASPIRIN 81 MG ENTERIC TABLET PO (20:21)
[2022-03-06 21:07] LABS: Glucose Point of Care 115 mg/dl (65-105)
[2022-03-06] MEDS: MIRTAZAPINE 7.5 MG TABLET PO (21:12)
[2022-03-07] VITALS (24 sets, daily range): BP systolic 100–172; BP diastolic 34–59; PULSE 58–68; RESP 14–21; TEMP 36.2–37.1; O2SAT 97–100
[2022-03-07 06:07] LABS: Alanine Aminotransferase 11 U/L (6-35); Albumin Level 3.3 g/dL (3.5-5.1); Alkaline Phosphatase 138 U/L (38-126); Anion Gap 5 mmol/L (8-16); Aspartate Amino Transferase 24 U/L (14-36); Basophils Percent Auto 0.2 % (0.2-1.2); Bilirubin,Total 0.8 mg/dL (0.2-1.3); Blood Urea Nitrogen 49 mg/dL (7-17); Calcium 9.1 mg/dL (8.4-10.2); Carbon Dioxide 30 mmol/L (22-30); Chloride 96 mmol/L (98-107); Eosinophils Absolute Auto 0.1 K/mm3 (0-0.3); Eosinophils Percent Auto 1.9 % (0-4.4); Estimated CRCL calculation 9 ml/min; Estimated Glomerular Filt Rate 8; Glucose 73 mg/dL (65-110); Hematocrit 26.5 % (37.0-47.0); Hemoglobin 8.5 g/dL (12.0-15.0); Immature Granulocyte Absolute 0.02 K/mm3 (0.00-0.031); Immature Granulocyte Percent A 0.4 % (0-0.5); Lymphocytes Absolute Auto 1.14 K/mm3 (0.9-3.2); Lymphocytes Percent Auto 23.5 % (18.3-44.2); Mean Corpuscular HGB Conc 32.1 g/dl (32-36); Mean Corpuscular Hemoglobin 31.3 pg (26-34); Mean Corpuscular Volume 97.4 fl (80-100); Mean Platelet Volume 10.2 fl (7.4-10.4); Monocytes Absolute Auto 0.4 K/mm3 (0.1-0.6); Monocytes Percent Auto 8.2 % (2.6-8.5); Neutrophils Absolute Auto 3.2 K/mm3 (1.3-6.7); Neutrophils Percent Auto 65.8 % (45.5-73.1); Phosphorus 3.7 mg/dL (2.5-4.5); Platelet Count Result 131 k/mm3 (150-375); Potassium 4.9 mmol/L (3.4-5.0); Red Blood Count 2.72 M/mm3 (4.2-5.4); Sodium 131 mmol/L (137-145); White Blood Count 4.9 K/mm3 (4.5-10.0)
--- NOTE | 2022-03-07 07:36 | PM.IMPN ---
Progress Note: A&P Assessment and Plan (1) Altered mental status: Qualifiers: Altered mental status type: unspecified Qualified Code(s): R41.82 - Altered mental status, unspecified Code(s): R41.82 - Altered mental status, unspecified Status: Acute Assessment and Plan: CT head showed no acute intracranial abnormality, abnormal UA, with outpatient UTI growing Enterococcus, for which patient has not been treated prior to this admission. She is currently undergoing treatment with vancomycin, and we will continue his course of treatment pending repeat culture and sensitivities with plan to transition to PO antibiotics. (2) Shortness of breath: Code(s): R06.02 - Shortness of breath Status: Acute Assessment and Plan: This has resolved. Patient is on room air at this time and lying recumbent. Patient does appear anxious, and tells me she is easily confused though she is alert and oriented. Chest x-ray did show minimal infiltrates or atelectasis at the right mid bilateral lower lungs. Will continue to monitor IS q.2 hours (3) UTI (urinary tract infection): Qualifiers: Hematuria presence: with hematuria Urinary tract infection type: site unspecified Qualified Code(s): N39.0 - Urinary tract infection, site not specified; R31.9 - Hematuria, unspecified Code(s): N39.0 - Urinary tract infection, site not specified Status: Acute Assessment and Plan: Patient with history of recurrent Enterococcus UTIs, presenting with acute confusion. Outpatient UA grew Enterococcus sensitive to vancomycin, treatment was initiated with vancomycin will continue pending repeat cultures. She denies abdominal pain or urinary changes. She states she does produce urine, though she does produce little urine and infrequently. Is followed by urology for her recurrent UTIs, and subsequently a consult was placed for additional recommendations. Do appreciate any additional recommendations. CT abdomen pelvis showed: Severe calcified atherosclerosis Cardiomegaly, cardiac valve replacement Right ventricular apex lead Mild right minimal left pleural effusion Bilateral predominantly dependent lower lobe atelectasis 2.3 cm exophytic soft tissue mass of left kidney, possibly hemorrhagic/complicated cyst; less likely would be renal malignancy Fat-containing left ventral abdominal wall hernia L2 compression fracture of uncertain age KUB showed no acute abdominal findings. Urology consult pending. (4) Diabetes mellitus with neuropathy: Qualifiers: Diabetes mellitus correction insulin use: with rat exterminator use Diabetes mellitus type: type 2 Qualified Code(s): E11.40 - Type 2 diabetes mellitus with diabetic neuropathy, unspecified; Z79.4 - half-way (current) use of insulin Code(s): E11.40 - Type 2 diabetes mellitus with diabetic neuropathy, unspecified Status: Acute Assessment and Plan: Patient ate 100% of her breakfast. We will adjust her insulin dosing according to her intake using SSI, accuchecks at this time. Hypoglycemic protocol in place. Will discharge on her home regimen. (5) RENATE on CPAP: Code(s): G47.33 - Obstructive sleep apnea (adult) (pediatric); Z99.89 - Dependence on other enabling machines and devices Status: Acute Assessment and Plan: Will provide CPAP during stay. (6) Hypothyroidism (acquired): Code(s): E03.9 - Hypothyroidism, unspecified Status: Acute Assessment and Plan: TSH low, T4 therapeutic, will continue home levothyroxine. (7) ESRD (end stage renal disease) on dialysis: Code(s): N18.6 - End stage renal disease; Z99.2 - Dependence on renal dialysis Status: Acute Assessment and Plan: Nephrology has been consulted, patient will undergo hemodialysis tomorrow. Likely D/C afterwards. (8) Fall: Code(s): W19.XXXA - Unspecified fall, initial encounter Status: Acu
[2022-03-07 07:47] LABS: Glucose Point of Care 79 mg/dl (65-105)
[2022-03-07] MEDS: FUROSEMIDE 40 MG TABLET PO ×2 (07:55→17:21)
[2022-03-07] MEDS: PANTOPRAZOLE 40 MG TABLET PO ×2 (07:55→17:21)
[2022-03-07] MEDS: LEVOTHYROXINE SODIUM 88 MCG TABLET PO (07:55)
[2022-03-07] MEDS: traMADol HCL (*CRX) 50 MG TABLET PO (07:56)
[2022-03-07] MEDS: SERTRALINE HCL 50 MG TABLET PO (07:56)
[2022-03-07] MEDS: busPIRone HCL 10 MG TABLET PO ×2 (07:56→17:21)
[2022-03-07] MEDS: SEVELAMER CARBONATE 800 MG TABLET 1600 MG PO ×3 (07:56→17:21)
--- NOTE | 2022-03-07 09:55 | PC.NURSE ---
to dialysis via bed
[2022-03-07] MEDS: EPOETIN ALFA-EPBX 10,000 UNITS/ML VIAL 10000 UNITS IV PUSH (11:31)
--- NOTE | 2022-03-07 11:54 | PM.PNNEP ---
Progress Note: A&P Additional Plan 1. Diane has end-stage renal disease. this is due to hypertension and diabetes. She is getting dialysis now. 2. The patient has anemia. Hemoglobin is 9.5. This is likely due to end-stage renal disease. On Epogen with dialysis. 3. The patient has hypertension. Her blood pressure is well controlled 4. the patient has a UTI. Urine culture is shows Enterococcus. She is on vancomycin. 5. mental status. The patient seems better than she was last week. 6. The patient has diabetes. She is on meds per hospitalist. A1c is 5.8 Subjective Date/time seen: 03/07/22 11:54 Interval history: Patient feels about the same today. No chest pain or shortness of breath seems less confused on dialysis and tolerating it well. She was seen at 11:30 a.m. Review of Systems Cardiovascular: Cardiovascular: Reports no additional cardiovascular complaints Respiratory: Respiratory: Reports no additional respiratory complaints Gastrointestinal: Gastrointestinal: Reports no additional gastrointestinal complaints Genitourinary: Genitourinary: Reports no additional female genitourinary complaints Exam Narrative: WDWN in NAD skin no rash head ncat lungs clear cor reg no rub abd BS+ nontender and soft ext no edema. Objective Data Vital Signs Vital Signs: Vital Signs - 24 hr 03/06/22 12:00 03/06/22 14:00 03/06/22 16:00 Temperature 36.9 C Pulse Rate 60 64 72 Respiratory Rate 16 Blood Pressure 118/60 Pulse Oximetry 96 Oxygen Delivery 03/06/22 22:29 03/06/22 22:00 03/06/22 20:00 Temperature 36.3 C L Pulse Rate 68 59 L 68 Respiratory Rate 13 21 H 13 Blood Pressure 151/63 H Pulse Oximetry 97 100 97 Oxygen Delivery Autopap Autopap 03/06/22 20:00 03/07/22 00:00 03/07/22 02:56 Temperature Pulse Rate 60 60 68 Respiratory Rate 14 Blood Pressure Pulse Oximetry 97 Oxygen Delivery Autopap 03/07/22 04:00 03/07/22 06:00 03/07/22 08:00 Temperature 36.2 C L Pulse Rate 60 60 Respiratory Rate 21 H Blood Pressure 148/57 H Pulse Oximetry 100 Oxygen Delivery Room Air Intake/Output Intake/Output: Intake & Output 03/04/22 03/05/22 03/06/22 06/11/22 23:59 23:59 23:59 23:59 Intake Total 500 810 540 Output Total 100 Balance 400 810 540 Meds/Results Medications: Active Medications Generic Name Dose Route Start Last Admin Trade Name Freq PRN Reason Stop Dose Admin Aspirin 81 mg 03/06/22 21:00 03/06/22 20:21 Aspirin 81 Mg Enteric Tablet PO 81 mg HS ISSA Administration Buspirone HCl 10 mg 03/06/22 09:00 03/07/22 07:56 Buspirone Hcl 10 Mg Tablet PO 10 mg BID ISSA Administration Calcium Carbonate 200 mg 03/06/22 16:21 Calcium Carbonate (Tums) 500 Mg (200 Mg Elemental) PO Q6H PRN Indigestion Dextrose 12.5 gm 03/06/22 07:37 03/06/22 16:30 Dextrose 50% 25 Gm/50 Ml Syringe IV PUSH 12.5 gm PRN PRN Administration Hypoglycemia Protocol Epoetin Severino-epbx 10,000 units 03/07/22 12:17 03/07/22 11:31 Epoetin Severino-Epbx 10,000 Units/Ml Vial IV PUSH 10,000 units TUTHSA ISSA Administration Furosemide 40 mg 03/06/22 09:00 03/07/22 07:55 Furosemide 40 Mg Tablet PO 40 mg BID ISSA Administration Glucagon 1 mg 03/06/22 07:37 Glucagon For Inj 1 Mg Vial IM PRN PRN Hypoglycemia Protocol Glucose 15 gm 03/06/22 07:37 03/06/22 12:34 Glucose Oral Gel 15 Gm Of Glucse In 37.5 Gm Tube PO 15 gm PRN PRN Administration Hypoglycemia Protocol Dextrose 1,000 mls @ 100 mls/hr 03/06/22 07:37 Dextrose 5% 1,000 Ml IVPB PRN PRN Hypoglycemia Protocol Vancomycin HCl 1,250 mg in 250 mls @ 200 mls/hr 03/06/22 12:39 Vancomycin 1,250 Mg/D5w 250 Ml IVPB PRN PRN vancomycin protocol Insulin Aspart 3 - 6 units 03/06/22 08:00 03/07/22 07:57 Insulin Aspart (*Bkc) 100 Units/Ml SUB
--- NOTE | 2022-03-07 12:46 | PCPTNOTE ---
physical therapy initial evaluation attempted, pt off floor for dialysis. Will continue to follow.
--- NOTE | 2022-03-07 13:36 | PCOTNOTE ---
Attempted occupational therapy evaluation, patient is off the floor for dialysis.
--- NOTE | 2022-03-07 14:35 | PC.NURSE ---
pt back to room, resting comfortably
[2022-03-07 14:52] LABS: Glucose Point of Care 91 mg/dl (65-105)
[2022-03-07 16:33] LABS: Glucose Point of Care 150 mg/dl (65-105)
[2022-03-07] MEDS: MIRTAZAPINE 7.5 MG TABLET PO (20:11)
[2022-03-07] MEDS: traZODone HCL 50 MG TABLET PO (20:11)
[2022-03-07] MEDS: ASPIRIN 81 MG ENTERIC TABLET PO (20:11)
[2022-03-07] MEDS: QUEtiapine FUMARATE 25 MG TABLET 50 MG PO (20:11)
[2022-03-07 21:19] LABS: Glucose Point of Care 199 mg/dl (65-105)
[2022-03-07 21:20] LABS: Vancomycin Random 8.8 ug/mL (10-20)
[2022-03-07 21:27] LABS: Hepatitis B Surface Antigen Negative (Negative)
[2022-03-07 21:45] LABS: Hepatitis B Surface Anti Res Negative
[2022-03-08] VITALS (12 sets, daily range): BP systolic 112–146; BP diastolic 45–61; PULSE 59–66; RESP 16–18; TEMP 36.2–36.7; O2SAT 94–100
[2022-03-08 05:54] LABS: Basophils Percent Auto 0.7 % (0.2-1.2); Eosinophils Absolute Auto 0.1 K/mm3 (0-0.3); Eosinophils Percent Auto 1.2 % (0-4.4); Hematocrit 27.6 % (37.0-47.0); Hemoglobin 8.6 g/dL (12.0-15.0); Immature Granulocyte Absolute 0.01 K/mm3 (0.00-0.031); Immature Granulocyte Percent A 0.2 % (0-0.5); Lymphocytes Absolute Auto 0.94 K/mm3 (0.9-3.2); Lymphocytes Percent Auto 22.8 % (18.3-44.2); Mean Corpuscular HGB Conc 31.2 g/dl (32-36); Mean Corpuscular Hemoglobin 31.3 pg (26-34); Mean Corpuscular Volume 100.4 fl (80-100); Mean Platelet Volume 10.2 fl (7.4-10.4); Monocytes Absolute Auto 0.5 K/mm3 (0.1-0.6); Monocytes Percent Auto 10.9 % (2.6-8.5); Neutrophils Absolute Auto 2.7 K/mm3 (1.3-6.7); Neutrophils Percent Auto 64.2 % (45.5-73.1); Platelet Count Result 124 k/mm3 (150-375); Red Blood Count 2.75 M/mm3 (4.2-5.4); Red Cell Distribution Width 15.4 % (11.5-14.5); White Blood Count 4.1 K/mm3 (4.5-10.0)
[2022-03-08] MEDS: LEVOTHYROXINE SODIUM 88 MCG TABLET PO (06:10)
[2022-03-08 06:11] LABS: Alanine Aminotransferase 12 U/L (6-35); Albumin Level 3.4 g/dL (3.5-5.1); Alkaline Phosphatase 133 U/L (38-126); Anion Gap 6 mmol/L (8-16); Aspartate Amino Transferase 24 U/L (14-36); Bilirubin,Total 0.8 mg/dL (0.2-1.3); Blood Urea Nitrogen 25 mg/dL (7-17); Calcium 8.7 mg/dL (8.4-10.2); Carbon Dioxide 32 mmol/L (22-30); Chloride 94 mmol/L (98-107); Estimated CRCL calculation 14 ml/min; Estimated Glomerular Filt Rate 14; Glucose 142 mg/dL (65-110); Potassium 4.1 mmol/L (3.4-5.0); Sodium 132 mmol/L (137-145)
[2022-03-08 07:40] LABS: Glucose Point of Care 128 mg/dl (65-105)
[2022-03-08] MEDS: SEVELAMER CARBONATE 800 MG TABLET 1600 MG PO ×3 (08:15→16:36)
[2022-03-08] MEDS: FUROSEMIDE 40 MG TABLET PO (08:15)
[2022-03-08] MEDS: SERTRALINE HCL 50 MG TABLET PO (08:15)
[2022-03-08] MEDS: busPIRone HCL 10 MG TABLET PO ×2 (08:15→16:36)
[2022-03-08] MEDS: PANTOPRAZOLE 40 MG TABLET PO ×2 (08:15→16:36)
[2022-03-08] MEDS: traMADol HCL (*CRX) 50 MG TABLET PO (09:05)
[2022-03-08] MEDS: CEFDINIR 300 MG CAPSULE PO (09:05)
--- NOTE | 2022-03-08 09:22 | PM.PNNEP ---
Progress Note: A&P Additional Plan 1. Diane has end-stage renal disease. this is due to hypertension and diabetes. She had dialysis yesterday and did well. She was a bit confused during treatment and yesterday afternoon and worsened at night. They she seems back to her less confused baseline. Volume status looks okay. Potassium is okay. Sodium is slightly low due to water drinking. 2. The patient has anemia. Hemoglobin is 8.6 This is likely due to end-stage renal disease. On Epogen with dialysis. 3. The patient has hypertension. Her blood pressure is well controlled She is not on any antihypertensives. 4. the patient has a UTI. Urine culture is shows Enterococcus. She is on vancomycin. 5. mental status. This waxes and wanes. 6. The patient has diabetes. She is on meds per hospitalist. A1c is 5.8 7 the patient has swelling. Trying to remove fluid however blood pressure limits. Will increase interdialytic furosemide. Discussed with daughter. Subjective Date/time seen: 03/08/22 09:22 Interval history: Patient feels about the same today. Daughter in the room. Patient became more confused last night and was calling home talking with her asking to go home. She ate all of her breakfast. Exam Narrative: WDWN in NAD skin no rash head ncat lungs clear bilaterally cor reg no rub or gallop abd BS+ nontender and soft ext 1+ edema. Objective Data Vital Signs Vital Signs: Vital Signs - 24 hr 03/07/22 12:00 03/07/22 10:00 03/07/22 10:15 Temperature 36.5 C Pulse Rate 60 60 59 L Respiratory Rate 18 Blood Pressure 144/35 H 123/45 L Pulse Oximetry 03/07/22 10:30 03/07/22 10:45 03/07/22 11:30 Temperature Pulse Rate 60 60 63 Respiratory Rate Blood Pressure 156/37 H 154/39 H 124/34 L Pulse Oximetry 03/07/22 11:45 03/07/22 12:00 03/07/22 12:15 Temperature Pulse Rate 59 L 62 59 L Respiratory Rate Blood Pressure 155/39 H 172/38 H 129/35 L Pulse Oximetry 03/07/22 12:30 03/07/22 12:45 03/07/22 13:00 Temperature Pulse Rate 58 L 59 L 59 L Respiratory Rate Blood Pressure 127/59 L 128/39 L 134/38 L Pulse Oximetry 03/07/22 13:15 03/07/22 13:30 03/07/22 13:45 Temperature Pulse Rate 60 61 59 L Respiratory Rate Blood Pressure 158/36 H 146/36 H 139/36 L Pulse Oximetry 03/07/22 13:53 03/07/22 14:00 03/07/22 16:00 Temperature 36.2 C L Pulse Rate 61 61 61 Respiratory Rate 18 Blood Pressure 141/35 H 148/41 H Pulse Oximetry 03/07/22 19:47 03/07/22 20:00 03/08/22 00:00 Temperature 37.1 C Pulse Rate 60 60 60 Respiratory Rate 17 Blood Pressure 100/40 L Pulse Oximetry 100 03/08/22 04:00 03/08/22 04:33 03/08/22 08:00 Temperature 36.6 C Pulse Rate 60 59 L 62 Respiratory Rate 17 Blood Pressure 112/49 L Pulse Oximetry 98 Intake/Output Intake/Output: Intake & Output 03/05/22 03/06/22 03/07/22 03/08/22 23:59 23:59 23:59 23:59 Intake Total 500 810 880 350 Output Total 100 3200 Balance 400 810 -2320 350 Meds/Results Medications: Active Medications Generic Name Dose Route Start Last Admin Trade Name Balajiq PRN Reason Stop Dose Admin Aspirin 81 mg 03/06/22 21:00 03/07/22 20:11 Aspirin 81 Mg Enteric Tablet PO 81 mg HS ISSA Administration Buspirone HCl 10 mg 03/06/22 09:00 03/08/22 08:15 Buspirone Hcl 10 Mg Tablet PO 10 mg BID ISSA Administration Calcium Carbonate 200 mg 03/06/22 16:21 Calcium Carbonate (Tums) 500 Mg (200 Mg Elemental) PO Q6H PRN Indigestion Cefdinir 300 mg 03/08/22 09:00 03/08/22 09:05 Cefdinir 300 Mg Capsule PO 300 mg DAILY ISSA Administration Dextrose 12.5 gm 03/06/22 07:37 03/06/22 16:30 Dextrose 50% 25 Gm/50 Ml Syringe IV PUSH 12.5 gm PRN PRN Administration Hypoglycemia Protocol Epoetin Severino-epbx 10,000 units 03/07/22 12:17 03/07/22 11:31 Epoetin
[2022-03-08 10:11] LABS: Glucose Point of Care 235 mg/dl (65-105)
--- NOTE | 2022-03-08 10:44 | WPDURCON ---
Assessment and Plan Assessment and plan (1) UTI (urinary tract infection): Qualifiers: Hematuria presence: with hematuria Urinary tract infection type: site unspecified Qualified Code(s): N39.0 - Urinary tract infection, site not specified; R31.9 - Hematuria, unspecified Code(s): N39.0 - Urinary tract infection, site not specified Status: Acute Assessment and Plan: Recurrent UTIs. Currently with Enterococcus sensitive to vancomycin. Will obtain bladder scan to at least make sure she is emptying her bladder. Patient will require a cystoscopy as an outpatient and can follow up with Dr. Bell for these recurrent UTIs. Urology Consult Note HPI Date Seen: 03/08/22 Requesting Physician: Clarita Mata PA-C Primary Care Provider: Zachery Pratt MD Consult Narrative Narrative: Diane Rojas is a 86 year old female with multiple medical issues on hemodialysis. Patient has a problem with recurrent UTIs. She presented with altered mental status. Patient still has some confusion according to the daughter. The daughter tells me that she has had recurrent UTI I's and has seen a urologist once at [facility] but that recently had been taking care by Dr. Bell. Daughter states that her mother does make some urine. Currently her white count was normal at 5.8. CT scan was obtained which revealed a 2-3 cm hemorrhagic versus complicated cyst on the left. She also has a 7.5 cm right renal cyst. Review of Systems Review of Systems: All systems reviewed & are unremarkable except as noted in HPI and below PMFSH Past Medical History Medical History A-fib Abdominal pain Abnormal bruising Abrasion Alopecia Altered mental status Benign essential hypertension Blood blister BMI 29.0-29.9,adult BMI 30.0-30.9,adult BMI 30.0-30.9,adult BMI 31.0-31.9,adult BMI 32.0-32.9,adult BMI 33.0-33.9,adult Callus of foot Chronic acquired lymphedema Chronic pain Congestion of both ears Constipation Contusion of lower extremity Diabetes mellitus with neuropathy Diabetic retinopathy DM type 2 (diabetes mellitus, type 2) Dysuria Encounter for routine adult health examination without abnormal findings ESRD (end stage renal disease) Follow up Frequent UTI GERD (gastroesophageal reflux disease) Gout Hyperlipidemia Hypothyroidism (acquired) Nausea On manager terminal drug therapy RENATE on CPAP Renal failure UTI (urinary tract infection) Family History Family History Mother Diabetes mellitus Sibling Diabetes mellitus Cerebrovascular accident Social History Social History Smoking status: Never smoker Alcohol intake: never Substance use: never Spiritual care concerns: No Meds Home Medications and Allergies Home Medications Medication Instructions Recorded Confirmed Type sevelamer HCl 800 mg tablet 1,600 mg PO TID 08/20/20 03/06/22 History Lactobacillus 1 cap PO DAILY 02/26/21 03/06/22 History no.51-Bifidobacterium no.4 50 billion cell capsule (up4 Probiotics Ultra) aspirin 81 mg tablet,delayed 81 mg PO HS 02/26/21 03/06/22 History release (Adult Low Dose Aspirin) biotin 1,000 mcg chewable tablet 100 mcg PO QPM 02/26/21 03/06/22 History omeprazole 40 mg capsule,delayed 40 mg PO BID #180 caps 05/09/21 03/06/22 Rx release d-mannose 500 mg capsule 1,000 mg PO BID 07/02/21 03/06/22 History blood sugar diagnostic (OneTouch See Rx Instructions .Route 09/01/21 03/06/22 Rx Ultra Test strips) .COMPLEX #300 strips furosemide 40 mg tablet 40 mg PO BID #180 tabs 09/04/21 03/06/22 Rx tramadol 50 mg tablet 50 mg PO Q8H PRN pain #30 tabs 10/09/21 03/06/22 Rx mirtazapine 7.5 mg tablet 7.5 mg PO QHS #90 tabs 10/16/21 03/06/22 Rx sertraline 50 mg tablet 50 mg PO DAILY #90 tabs 10/16/2103/06
[2022-03-08 11:21] LABS: Glucose Point of Care 274 mg/dl (65-105)
--- NOTE | 2022-03-08 11:30 | ECG_ITS ---
Measurements Intervals [place] Rate: 60 P: MS: 0 QRS: -62 QRSD: 194 T: 107 QT: 531 QTc: 531 Interpretive Statements SINUS RHYTHM WITH ELECTRONIC VENTRICULAR PACEMAKER ATYPICAL ECG COMPARED TO ECG 03/05/2022 22:11:59 NO SIGNIFICANT CHANGES Electronically Signed On 03-09-2022 12:29:08 CDT by Jose Roberto Maloney M.D.
[2022-03-08 12:09] LABS: Troponin I 0.013 ng/mL (0.000-0.034)
[2022-03-08] MEDS: INSULIN ASPART (*BKC) 100 UNITS/ML SUB-Q (12:22)
--- NOTE | 2022-03-08 15:18 | PM.IMPN ---
Progress Note: A&P Assessment and Plan (1) Chest pressure: Code(s): R07.89 - Other chest pain Status: Acute Assessment and Plan: Patient did report some chest pressure/palpitations today, as well as lower extremity cramping and pain. Patient is currently chest pain-free, negative Homans sign. Her lower extremity swelling has actually improved. Venous duplex is pending interpretation EKG showed no changes from previous EKG, ventricular pacing. Troponin was not elevated Chest x-ray showed persistent right basilar infiltrates which may represent atelectasis or pneumonia, and cardiomegaly. (2) UTI (urinary tract infection): Qualifiers: Hematuria presence: with hematuria Urinary tract infection type: site unspecified Qualified Code(s): N39.0 - Urinary tract infection, site not specified; R31.9 - Hematuria, unspecified Code(s): N39.0 - Urinary tract infection, site not specified Status: Acute Assessment and Plan: Patient with history of recurrent Enterococcus UTIs, presenting with acute confusion. Outpatient UA grew Enterococcus sensitive to vancomycin and ampicillin. Treatment was initiated with vancomycin however, she was transitioned to cefdinir (renally dosed) today. She denies abdominal pain or urinary changes. She states she does produce urine, though she does produce little urine and infrequently. Is followed by urology for her recurrent UTIs, and subsequently a consult was placed for additional recommendations. Urology advised that they will see this patient as outpatient for cystoscopy, with follow-up to Dr. Bell for recurrent UTIs. CT abdomen pelvis showed: 2.3 cm exophytic soft tissue mass of left kidney, possibly hemorrhagic/complicated cyst; less likely would be renal malignancy KUB showed no acute abdominal findings. (3) Altered mental status: Qualifiers: Altered mental status type: unspecified Qualified Code(s): R41.82 - Altered mental status, unspecified Code(s): R41.82 - Altered mental status, unspecified Status: Acute Assessment and Plan: CT head showed no acute intracranial abnormality, abnormal UA, with outpatient UTI growing Enterococcus sensitive to vancomycin and ampicillin, for which patient has not been treated prior to this admission. Patient transitioned to renally dosed cefdinir today. We will see how she does with this. Patient has reported allergies to amoxicillin, clavulanic acid, penicillin, sulfa, sulfamethoxazole. (4) Shortness of breath: Code(s): R06.02 - Shortness of breath Status: Acute Assessment and Plan: This has resolved. Patient is on room air at this time feeling improved today. Chest x-ray did show minimal infiltrates or atelectasis at the right mid bilateral lower lungs. 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 We will adjust her insulin dosing according to her intake using SSI, accuchecks at this time. Hypoglycemic protocol in place. Will discharge on her home regimen. (6) RENATE on CPAP: Code(s): G47.33 - Obstructive sleep apnea (adult) (pediatric); Z99.89 - Dependence on other enabling machines and devices Status: Acute Assessment and Plan: Will provide CPAP during stay. (7) Hypothyroidism (acquired): Code(s): E03.9 - Hypothyroidism, unspecified Status: Acute Assessment and Plan: TSH low, T4 therapeutic, will continue home levothyroxine. (8) ESRD (end stage renal disease) on dialysis:
[2022-03-08] MEDS: FUROSEMIDE 80 MG TABLET PO (16:37)
[2022-03-08 16:41] LABS: Glucose Point of Care 121 mg/dl (65-105)
[2022-03-08 19:04] LABS: Troponin I 0.015 ng/mL (0.000-0.034)
[2022-03-08] MEDS: traZODone HCL 50 MG TABLET PO (20:14)
[2022-03-08] MEDS: MIRTAZAPINE 7.5 MG TABLET PO (20:14)
[2022-03-08] MEDS: QUEtiapine FUMARATE 25 MG TABLET 50 MG PO (20:14)
[2022-03-08] MEDS: ASPIRIN 81 MG ENTERIC TABLET PO (20:14)
[2022-03-08 21:54] LABS: Glucose Point of Care 198 mg/dl (65-105)
[2022-03-09] VITALS (11 sets, daily range): BP systolic 153–156; BP diastolic 44–56; PULSE 59–63; RESP 16–18; TEMP 35.9–36.3; O2SAT 95–100
[2022-03-09] MEDS: OLANZapine 10 MG INJ VIAL 5 MG IM (00:59)
[2022-03-09] MEDS: OLANZapine 10 MG INJ VIAL IM (04:29)
[2022-03-09] MEDS: LEVOTHYROXINE SODIUM 88 MCG TABLET PO (06:27)
--- NOTE | 2022-03-09 07:04 | PM.DS ---
DS: Admitting Diagnosis Discharge Date 03/09/22 1600 Admitting Diagnosis Confusion, weakness DS: Discharge Diagnosis Discharge Diagnosis (1) Chest pressure: Code(s): R07.89 - Other chest pain Status: Acute Assessment and Plan: Patient did report some chest pressure/palpitations today, as well as lower extremity cramping and pain. Patient is currently chest pain-free, negative Homans sign. Her lower extremity swelling has actually improved. She does have anxiety in the mornings, which I suspect is the cause in this case. Venous duplex showed no lower extremity DVT. EKG showed no changes from previous EKG, ventricular pacing. Troponin was not elevated Chest x-ray showed persistent right basilar infiltrates which may represent atelectasis or pneumonia, and cardiomegaly. (2) UTI (urinary tract infection): Qualifiers: Hematuria presence: with hematuria Urinary tract infection type: site unspecified Qualified Code(s): N39.0 - Urinary tract infection, site not specified; R31.9 - Hematuria, unspecified Code(s): N39.0 - Urinary tract infection, site not specified Status: Acute Assessment and Plan: Patient with history of recurrent Enterococcus UTIs, presenting with acute confusion. Outpatient UA grew Enterococcus sensitive to vancomycin and ampicillin. Treatment was initiated with vancomycin however, she was transitioned to cefdinir (renally dosed) today. She denies abdominal pain or urinary changes. She states she does produce urine, though she does produce little urine and infrequently. Is followed by urology for her recurrent UTIs, and subsequently a consult was placed for additional recommendations. Urology advised that they will see this patient as outpatient for cystoscopy, with follow-up to Dr. Bell for recurrent UTIs. CT abdomen pelvis showed: 2.3 cm exophytic soft tissue mass of left kidney, possibly hemorrhagic/complicated cyst; less likely would be renal malignancy KUB showed no acute abdominal findings. Will D/C with PO Cefdinir x 6 days with follow up to urology. (3) Altered mental status: Qualifiers: Altered mental status type: unspecified Qualified Code(s): R41.82 - Altered mental status, unspecified Code(s): R41.82 - Altered mental status, unspecified Status: Acute Assessment and Plan: CT head showed no acute intracranial abnormality, abnormal UA, with outpatient UTI growing Enterococcus sensitive to vancomycin and ampicillin, for which patient has not been treated prior to this admission. Patient transitioned to renally dosed cefdinir yesterday.. Patient has reported allergies to amoxicillin, clavulanic acid, penicillin, sulfa, sulfamethoxazole. (4) Shortness of breath: Code(s): R06.02 - Shortness of breath Status: Acute Assessment and Plan: This has resolved. Patient is on room air at this time feeling improved today. Chest x-ray did show minimal infiltrates or atelectasis at the right mid bilateral lower lungs. 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 We resumed her home dosing of insulin and continue SSI, accuchecks at this time. Hypoglycemic protocol in place. Will discharge on her home regimen. (6) RENATE on CPAP: Code(s): G47.33 - Obstructive sleep apnea (adult) (pediatric); Z99.89 - Dependence on other enabling machines and devices Status: Acute Assessment and Plan: Will provide CPAP during stay. (7) Hypothyroidism (acquir
--- NOTE | 2022-03-09 07:20 | PM.IMPN ---
Progress Note: A&P Assessment and Plan (1) Chest pressure: Code(s): R07.89 - Other chest pain Status: Acute Assessment and Plan: Patient did report some chest pressure/palpitations today, as well as lower extremity cramping and pain. Patient is currently chest pain-free, negative Homans sign. Her lower extremity swelling has actually improved. She does have anxiety in the mornings, which I suspect is the cause in this case. Venous duplex showed no lower extremity DVT. EKG showed no changes from previous EKG, ventricular pacing. Troponin was not elevated Chest x-ray showed persistent right basilar infiltrates which may represent atelectasis or pneumonia, and cardiomegaly. (2) UTI (urinary tract infection): Qualifiers: Hematuria presence: with hematuria Urinary tract infection type: site unspecified Qualified Code(s): N39.0 - Urinary tract infection, site not specified; R31.9 - Hematuria, unspecified Code(s): N39.0 - Urinary tract infection, site not specified Status: Acute Assessment and Plan: Patient with history of recurrent Enterococcus UTIs, presenting with acute confusion. Outpatient UA grew Enterococcus sensitive to vancomycin and ampicillin. She denies abdominal pain or urinary changes. She states she does produce urine, though she does produce little urine and infrequently. Is followed by urology for her recurrent UTIs, and subsequently a consult was placed for additional recommendations. Urology advised that they will see this patient as outpatient for cystoscopy, with follow-up to Dr. Bell for recurrent UTIs. CT abdomen pelvis showed: 2.3 cm exophytic soft tissue mass of left kidney, possibly hemorrhagic/complicated cyst; less likely would be renal malignancy KUB showed no acute abdominal findings. Will D/C with PO Cefdinir x 6 days with follow up to urology. 03/09- Treatment was initiated with vancomycin however, she was transitioned to cefdinir (renally dosed) due to sensitivities of her outpatient urine culture yesterday. However, this morning, her inpatient culture showed resistance to ampicillins and she will be placed back on the vancomycin to continue her course of treatment for an additional 2 days, total of 5 days on vancomycin therapy. (3) Altered mental status: Qualifiers: Altered mental status type: unspecified Qualified Code(s): R41.82 - Altered mental status, unspecified Code(s): R41.82 - Altered mental status, unspecified Status: Acute Assessment and Plan: CT head showed no acute intracranial abnormality, likely due to acute UTI. Plan as above. (4) Shortness of breath: Code(s): R06.02 - Shortness of breath Status: Acute Assessment and Plan: This has resolved. Patient is on room air at this time feeling improved today. Chest x-ray did show minimal infiltrates or atelectasis at the right mid bilateral lower lungs. Will continue to monitor IS q.2 hours (5) Diabetes mellitus with neuropathy: Qualifiers: Diabetes mellitus buttermaker insulin use: with buttermaker use Diabetes mellitus type: type 2 Qualified Code(s): E11.40 - Type 2 diabetes mellitus with diabetic neuropathy, unspecified; Z79.4 - penitentiary (current) use of insulin Code(s): E11.40 - Type 2 diabetes mellitus with diabetic neuropathy, unspecified Status: Acute Assessment and Plan: Patient has resumed eating as normal. We resumed her home dosing of insulin and continue SSI, accuchecks at this time. Hypoglycemic protocol in place. Will discharge on her home regimen. (6) RENATE on CPAP: Code(s): G47.33 - Obstructive sleep apnea (adult) (pediatric); Z99.89 - Dependence on other enabling machines and devices Status: Acute Assessment and Plan: Will provide CPAP during stay. (7) Hypothyroidism (acquired): Code(s): E03.9 - Hypothyroidism, unspecified Status: Acute Assessme
[2022-03-09 07:39] LABS: Basophils Percent Auto 0.6 % (0.2-1.2); Eosinophils Absolute Auto 0.1 K/mm3 (0-0.3); Eosinophils Percent Auto 1.9 % (0-4.4); Hematocrit 26.3 % (37.0-47.0); Hemoglobin 8.6 g/dL (12.0-15.0); Immature Granulocyte Absolute 0.01 K/mm3 (0.00-0.031); Immature Granulocyte Percent A 0.2 % (0-0.5); Lymphocytes Absolute Auto 1.51 K/mm3 (0.9-3.2); Lymphocytes Percent Auto 29.3 % (18.3-44.2); Mean Corpuscular HGB Conc 32.7 g/dl (32-36); Mean Corpuscular Hemoglobin 31.4 pg (26-34); Mean Platelet Volume 10.1 fl (7.4-10.4); Monocytes Absolute Auto 0.5 K/mm3 (0.1-0.6); Monocytes Percent Auto 10.3 % (2.6-8.5); Neutrophils Percent Auto 57.7 % (45.5-73.1); Platelet Count Result 141 k/mm3 (150-375); Red Blood Count 2.74 M/mm3 (4.2-5.4); Red Cell Distribution Width 15.1 % (11.5-14.5); White Blood Count 5.2 K/mm3 (4.5-10.0)
[2022-03-09 07:51] LABS: Alanine Aminotransferase 15 U/L (6-35); Albumin Level 3.7 g/dL (3.5-5.1); Alkaline Phosphatase 150 U/L (38-126); Anion Gap 5 mmol/L (8-16); Aspartate Amino Transferase 26 U/L (14-36); Bilirubin,Total 0.8 mg/dL (0.2-1.3); Blood Urea Nitrogen 41 mg/dL (7-17); Calcium 9.1 mg/dL (8.4-10.2); Carbon Dioxide 35 mmol/L (22-30); Chloride 91 mmol/L (98-107); Estimated CRCL calculation 10 ml/min; Estimated Glomerular Filt Rate 10; Glucose 117 mg/dL (65-110); Phosphorus 2.7 mg/dL (2.5-4.5); Potassium 4.1 mmol/L (3.4-5.0); Sodium 131 mmol/L (137-145)
[2022-03-09 08:12] LABS: Glucose Point of Care 119 mg/dl (65-105)
[2022-03-09] MEDS: QUEtiapine FUMARATE 25 MG TABLET PO (09:34)
[2022-03-09] MEDS: busPIRone HCL 10 MG TABLET PO ×2 (09:34→17:02)
[2022-03-09] MEDS: FUROSEMIDE 80 MG TABLET PO ×2 (09:34→17:02)
[2022-03-09] MEDS: PANTOPRAZOLE 40 MG TABLET PO ×2 (09:35→17:01)
[2022-03-09] MEDS: SERTRALINE HCL 50 MG TABLET PO (09:35)
[2022-03-09] MEDS: SEVELAMER CARBONATE 800 MG TABLET 1600 MG PO ×3 (09:35→17:01)
[2022-03-09] MEDS: polyethylene glycoL 3350 17 GM POWD.PACK PO (11:06)
[2022-03-09 11:21] LABS: Glucose Point of Care 193 mg/dl (65-105)
--- NOTE | 2022-03-09 12:09 | WPDUROPN2 ---
Progress Note: A&P Assessment and Plan (1) UTI (urinary tract infection): Qualifiers: Hematuria presence: with hematuria Urinary tract infection type: site unspecified Qualified Code(s): N39.0 - Urinary tract infection, site not specified; R31.9 - Hematuria, unspecified Code(s): N39.0 - Urinary tract infection, site not specified Status: Acute Assessment and Plan: Follow up in the office with Dr. Bell for a cystoscopy. Continue appropriate culture sensitive antibiotics. (2) ESRD (end stage renal disease) on dialysis: Code(s): N18.6 - End stage renal disease; Z99.2 - Dependence on renal dialysis Status: Acute (3) Renal mass: Code(s): N28.89 - Other specified disorders of kidney and ureter Status: Acute Assessment and Plan: Will get a JUANA to confirm that the 2.3cm left mass is a cyst seen initially on CT. No further evaluation at this time. Subjective Subjective Date/Time Seen: 03/09/22 12:09 Chronic UTI's with Enterococcus growing on culture from this admission. CT shows a 2.3cm soft tissue mass, otherwise upper tracts appear normal. She has CKD and is a dialysis patient 3 days a week at [facility]. Her daughter is at the bedside and states that her usual symptoms during a UTI are abdominal pain, confusion, weakness and hallucinations. Review of Systems Cardiovascular: Cardiovascular: Denies chest pain Respiratory: Respiratory: Reports no additional respiratory complaints Gastrointestinal: Gastrointestinal: Reports abdominal pain, Denies nausea and Denies vomiting Genitourinary: Genitourinary: Denies hematuria, Denies dysuria, Denies pelvic pain, Denies flank pain, Denies urinary incontinence and Denies urinary hesitancy Exam Const: General: cooperative Resp: Effort & Inspection: normal respiratory effort Cardio: Rate: regular rate GI: GI Palp: Yes Soft to palpation and No Tenderness to palpation present (GI) : General: Yes no CVA tenderness Extrem: Right lower extremity: no edema Left lower extremity: no edema Objective Data Vital Signs Vital Signs: Vital Signs - 24 hr 03/08/22 14:00 03/08/22 14:26 03/08/22 16:00 Temperature 98.1 F Pulse Rate 66 60 Respiratory Rate 16 Blood Pressure 146/45 H Pulse Oximetry 100 98 Oxygen Delivery Room Air 03/08/22 19:14 03/08/22 21:06 03/08/22 20:00 Temperature 97.1 F L Pulse Rate 60 61 Respiratory Rate 18 Blood Pressure 140/61 Pulse Oximetry 100 94 Oxygen Delivery Room Air 03/08/22 20:00 03/09/22 00:00 03/09/22 04:00 Temperature Pulse Rate 63 61 Respiratory Rate Blood Pressure Pulse Oximetry Oxygen Delivery Room Air 03/09/22 04:35 03/09/22 08:03 03/09/22 09:35 Temperature 97.3 F L Pulse Rate 59 L 61 Respiratory Rate 17 18 Blood Pressure 153/44 H Pulse Oximetry 100 100 Oxygen Delivery Room Air Intake/Output Intake/Output: Intake & Output 03/06/22 03/07/22 03/08/22 03/09/22 23:59 23:59 23:59 23:59 Intake Total 192 297 3228 440 Output Total 3200 Balance 810 -2320 1370 440 Meds/Results Medications: Active Medications Generic Name Dose Route Start Last Admin Trade Name Freq PRN Reason Stop Dose Admin Aspirin 81 mg 03/06/22 21:00 03/08/22 20:14 Aspirin 81 Mg Enteric Tablet PO 81 mg HS ISSA Administration Buspirone HCl 10 mg 03/06/22 09:00 03/09/22 09:34 Buspirone Hcl 10 Mg Tablet PO 10 mg BID ISSA Administration Calcium Carbonate 200 mg 03/06/22 16:21 Calcium Carbonate (Tums) 500 Mg (200 Mg Elemental) PO Q6H PRN Indigestion Dextrose 12.5 gm 03/06/22 07:37 03/06/22 16:30 Dextrose 50% 25 Gm/50 Ml Syringe IV PUSH 12.5 gm PRN PRN Administration Hypoglycemia Protocol Docusate Sodium 100 mg 03/09/22 21:00 Docusate Sodium 100 Mg Capsule PO Q12HR [facility] Epoetin Severino-epbx 10,000 units 03/07/22 12:17 03/07/22 11:31 Epoetin Severino-Ep
[2022-03-09 13:51] LABS: Vancomycin Random 15.4 ug/mL (10-20)
--- NOTE | 2022-03-09 15:08 | PM.PNNEP ---
Progress Note: A&P Additional Plan 1. Diane has end-stage renal disease. this is due to hypertension and diabetes. She had dialysis Wednesday. her next treatment will be tomorrow. Volume status looks okay. Potassium is okay. Sodium is slightly low due to water drinking. 2. The patient has anemia. Hemoglobin is 8.6 still. This is likely due to end-stage renal disease. On Epogen with dialysis. 3. The patient has hypertension. Her blood pressure is well controlled although somewhat erratic with systolic anywhere from 100 to 150. anxiety and confusion may be playing a role in the variabililty. She is not on any antihypertensives. 4. the patient has a UTI. Urine culture is shows Enterococcus. She is on vancomycin. she will finish the course here then go home. 5. mental status. This waxes and wanes. 6. The patient has diabetes. She is on meds per hospitalist. A1c is 5.8 7 the patient has swelling. on diuretics and dialysis. Subjective Date/time seen: 03/09/22 15:08 Interval history: Patient feels about the same today. Daughter went home because she was exhausted. The patient is a little more awake and with it today. Exam Narrative: WDWN in NAD skin no rash head ncat lungs clear bilaterally cor reg no rub or gallop abd BS+ nontender and soft ext 1+ edema and no cyanosis. Objective Data Vital Signs Vital Signs: Vital Signs - 24 hr 03/08/22 16:00 03/08/22 19:14 03/08/22 21:06 Temperature 36.2 C L Pulse Rate 60 60 Respiratory Rate 18 Blood Pressure 140/61 Pulse Oximetry 100 94 Oxygen Delivery Room Air 03/08/22 20:00 03/08/22 20:00 03/09/22 00:00 Temperature Pulse Rate 61 63 Respiratory Rate Blood Pressure Pulse Oximetry Oxygen Delivery Room Air 03/09/22 04:00 03/09/22 04:35 03/09/22 08:03 Temperature 36.3 C L Pulse Rate 61 59 L 61 Respiratory Rate 17 Blood Pressure 153/44 H Pulse Oximetry 100 Oxygen Delivery 03/09/22 09:35 03/09/22 12:01 03/09/22 14:00 Temperature 36.0 C L Pulse Rate 60 63 Respiratory Rate 18 16 Blood Pressure 154/53 H Pulse Oximetry 100 100 Oxygen Delivery Room Air Intake/Output Intake/Output: Intake & Output 03/06/22 03/07/22 03/08/22 03/09/22 23:59 23:59 23:59 23:59 Intake Total 617 401 9581 440 Output Total 3200 Balance 810 -2320 1370 440 Meds/Results Medications: Active Medications Generic Name Dose Route Start Last Admin Trade Name Freq PRN Reason Stop Dose Admin Aspirin 81 mg 03/06/22 21:00 03/08/22 20:14 Aspirin 81 Mg Enteric Tablet PO 81 mg HS ISSA Administration Buspirone HCl 10 mg 03/06/22 09:00 03/09/22 09:34 Buspirone Hcl 10 Mg Tablet PO 10 mg BID ISSA Administration Calcium Carbonate 200 mg 03/06/22 16:21 Calcium Carbonate (Tums) 500 Mg (200 Mg Elemental) PO Q6H PRN Indigestion Dextrose 12.5 gm 03/06/22 07:37 03/06/22 16:30 Dextrose 50% 25 Gm/50 Ml Syringe IV PUSH 12.5 gm PRN PRN Administration Hypoglycemia Protocol Docusate Sodium 100 mg 03/09/22 21:00 Docusate Sodium 100 Mg Capsule PO Q12HR ISSA Epoetin Severino-epbx 10,000 units 03/07/22 12:17 03/07/22 11:31 Epoetin Severino-Epbx 10,000 Units/Ml Vial IV PUSH 10,000 units TUTHSA ISSA Administration Furosemide 80 mg 03/08/22 17:00 03/09/22 09:34 Furosemide 80 Mg Tablet PO 80 mg BID ISSA Administration Glucagon 1 mg 03/06/22 07:37 Glucagon For Inj 1 Mg Vial IM PRN PRN Hypoglycemia Protocol Glucose 15 gm 03/06/22 07:37 03/06/22 12:34 Glucose Oral Gel 15 Gm Of Glucse In 37.5 Gm Tube PO 15 gm PRN PRN Administration Hypoglycemia Protocol Dextrose 1,000 mls @ 100 mls/hr 03/06/22 07:37 Dextrose 5% 1,000 Ml IVPB PRN PRN Hypoglycemia Protocol Vancomycin HCl 1,250 mg in 250 mls @ 200 mls/hr 03/09/22 13:09 Vancomycin 1,250 Mg/D5w
[2022-03-09 16:12] LABS: Glucose Point of Care 197 mg/dl (65-105)
[2022-03-09] MEDS: ASPIRIN 81 MG ENTERIC TABLET PO (20:09)
[2022-03-09] MEDS: DOCUSATE SODIUM 100 MG CAPSULE PO (20:09)
[2022-03-09] MEDS: MIRTAZAPINE 7.5 MG TABLET PO (20:09)
[2022-03-09] MEDS: traZODone HCL 50 MG TABLET PO (20:09)
[2022-03-09] MEDS: QUEtiapine FUMARATE 25 MG TABLET 50 MG PO (20:09)
[2022-03-09 20:35] LABS: Glucose Point of Care 131 mg/dl (65-105)
[2022-03-10] VITALS (24 sets, daily range): BP systolic 113–149; BP diastolic 44–84; PULSE 59–65; RESP 16–20; TEMP 36.7–37.2; O2SAT 97–100
[2022-03-10] MEDS: LEVOTHYROXINE SODIUM 88 MCG TABLET PO (05:43)
[2022-03-10 05:52] LABS: Basophils Percent Auto 0.7 % (0.2-1.2); Eosinophils Absolute Auto 0.1 K/mm3 (0-0.3); Eosinophils Percent Auto 2.6 % (0-4.4); Hemoglobin 8.8 g/dL (12.0-15.0); Immature Granulocyte Absolute 0.02 K/mm3 (0.00-0.031); Immature Granulocyte Percent A 0.4 % (0-0.5); Lymphocytes Absolute Auto 1.27 K/mm3 (0.9-3.2); Mean Corpuscular HGB Conc 32.6 g/dl (32-36); Mean Corpuscular Hemoglobin 31.1 pg (26-34); Mean Corpuscular Volume 95.4 fl (80-100); Mean Platelet Volume 10.8 fl (7.4-10.4); Monocytes Absolute Auto 0.4 K/mm3 (0.1-0.6); Monocytes Percent Auto 8.6 % (2.6-8.5); Neutrophils Absolute Auto 2.7 K/mm3 (1.3-6.7); Neutrophils Percent Auto 59.7 % (45.5-73.1); Platelet Count Result 127 k/mm3 (150-375); Red Blood Count 2.83 M/mm3 (4.2-5.4); Red Cell Distribution Width 15.2 % (11.5-14.5); White Blood Count 4.5 K/mm3 (4.5-10.0)
[2022-03-10 06:03] LABS: Albumin Level 3.1 g/dL (3.5-5.1); Anion Gap 3 mmol/L (8-16); Blood Urea Nitrogen 51 mg/dL (7-17); Calcium 8.8 mg/dL (8.4-10.2); Carbon Dioxide 33 mmol/L (22-30); Chloride 92 mmol/L (98-107); Estimated CRCL calculation 9 ml/min; Estimated Glomerular Filt Rate 8; Glucose 92 mg/dL (65-110); Phosphorus 3.2 mg/dL (2.5-4.5); Potassium 4.6 mmol/L (3.4-5.0); Sodium 128 mmol/L (137-145)
[2022-03-10 07:44] LABS: Glucose Point of Care 103 mg/dl (65-105)
--- NOTE | 2022-03-10 07:44 | PM.DS ---
DS: Admitting Diagnosis Discharge Date 03/10/22 1700 Admitting Diagnosis Confusion/falls DS: Discharge Diagnosis Discharge Diagnosis (1) Chest pressure: Code(s): R07.89 - Other chest pain Status: Acute Assessment and Plan: Patient did report some chest pressure/palpitations today, as well as lower extremity cramping and pain. Patient is currently chest pain-free, negative Homans sign. Her lower extremity swelling has actually improved. She does have anxiety in the mornings, which I suspect is the cause in this case. Venous duplex showed no lower extremity DVT. EKG showed no changes from previous EKG, ventricular pacing. Troponin was not elevated Chest x-ray showed persistent right basilar infiltrates which may represent atelectasis or pneumonia, and cardiomegaly. 03/10- patient remains chest pain free. No shortness of breath. She was lying recumbent today in dialysis during my encounter with her. She had no concerns. (2) UTI (urinary tract infection): Qualifiers: Hematuria presence: with hematuria Urinary tract infection type: site unspecified Qualified Code(s): N39.0 - Urinary tract infection, site not specified; R31.9 - Hematuria, unspecified Code(s): N39.0 - Urinary tract infection, site not specified Status: Acute Assessment and Plan: Patient with history of recurrent Enterococcus UTIs, presenting with acute confusion. Outpatient UA grew Enterococcus sensitive to vancomycin and ampicillin. She denies abdominal pain or urinary changes. She states she does produce urine, though she does produce little urine and infrequently. Is followed by urology for her recurrent UTIs, and subsequently a consult was placed for additional recommendations. Urology advised that they will see this patient as outpatient for cystoscopy, with follow-up to Dr. Bell for recurrent UTIs. CT abdomen pelvis showed: 2.3 cm exophytic soft tissue mass of left kidney, possibly hemorrhagic/complicated cyst; less likely would be renal malignancy KUB showed no acute abdominal findings. 03/09- Treatment was initiated with vancomycin however, she was transitioned to cefdinir (renally dosed) due to sensitivities of her outpatient urine culture yesterday. However, this morning, her inpatient culture showed resistance to ampicillins and she will be placed back on the vancomycin to continue her course of treatment for an additional 2 days, total of 5 days on vancomycin therapy. Renal US showed renal cysts. 03/10 Last day of IV vancomycin today and will D/C in the AM. No leukocytosis, fever, urinary symptoms at this time. Blood cultures with no growth. Patient will follow up outpatient with Urology for cystoscopy. (3) Altered mental status: Qualifiers: Altered mental status type: unspecified Qualified Code(s): R41.82 - Altered mental status, unspecified Code(s): R41.82 - Altered mental status, unspecified Status: Acute Assessment and Plan: CT head showed no acute intracranial abnormality, likely due to acute UTI. Plan as above. Patient is generally mildly confused at baseline. She asks that we discussed is under care with her daughter. (4) Shortness of breath: Code(s): R06.02 - Shortness of breath Status: Acute Assessment and Plan: This has resolved. Patient is on room air at this time feeling well today with no complaints of shortness of breath. (5) Diabetes mellitus with neuropathy: Qualifiers: Diabetes mellitus foam caster insulin use: with foam caster use Diabetes mellitus type: type 2 Qualified Code(s): E11.40 - Type 2 diabetes mellitus with diabetic neuropathy, unspecified; Z79.4 - detention (current) use of insulin Code(s): E11.40 - Type 2 diabetes mellitus with diabetic neuropathy, unspecified Status: Acute Assessment and Plan: Patient has resumed eating as normal. Glucose was 92. We resumed her home dosing and will
[2022-03-10] MEDS: PANTOPRAZOLE 40 MG TABLET PO ×2 (08:42→17:21)
[2022-03-10] MEDS: SEVELAMER CARBONATE 800 MG TABLET 1600 MG PO ×3 (08:42→17:21)
[2022-03-10] MEDS: FUROSEMIDE 80 MG TABLET PO ×2 (08:42→17:21)
[2022-03-10] MEDS: polyethylene glycoL 3350 17 GM POWD.PACK PO (08:42)
[2022-03-10] MEDS: busPIRone HCL 10 MG TABLET PO ×2 (08:43→17:22)
[2022-03-10] MEDS: DOCUSATE SODIUM 100 MG CAPSULE PO ×2 (08:43→20:16)
[2022-03-10] MEDS: SERTRALINE HCL 50 MG TABLET PO (08:44)
[2022-03-10] MEDS: QUEtiapine FUMARATE 25 MG TABLET PO (08:46)
--- NOTE | 2022-03-10 11:18 | PC.NURSE ---
Report called to Lory DAVIDSONfish hatchery man nurse
[2022-03-10 11:33] LABS: Glucose Point of Care 159 mg/dl (65-105)
--- NOTE | 2022-03-10 11:40 | PC.NURSE ---
To Dialysis via bed.
--- NOTE | 2022-03-10 13:34 | PCOTNOTE ---
Attempted to see patient this pm, however patient off floor for dialysis.
--- NOTE | 2022-03-10 14:22 | PCPTNOTE ---
The patient treatment was not able to be completed due to patient out of room for dialysis. Will plan to continue treatment per plan of care.
--- NOTE | 2022-03-10 15:04 | PM.PNNEP ---
Progress Note: A&P Additional Plan 1. Diane has end-stage renal disease. this is due to hypertension and diabetes. she is getting dialysis now. 2. The patient has anemia. Hemoglobin is 8.6 still. This is likely due to end-stage renal disease. On Epogen with dialysis. 3. The patient has hypertension. Her blood pressure Is 130/47 right now. anxiety and confusion may be playing a role in the variabililty. She is not on any antihypertensives. 4. the patient has a UTI. Urine culture is shows Enterococcus. She is on vancomycin. she finished the course. 5. mental status. This waxes and wanes. 6. The patient has diabetes. She is on meds per hospitalist. A1c is 5.8 7 the patient has swelling. on diuretics and dialysis. Subjective Date/time seen: 03/10/22 15:04 Interval history: Patient feels about the same today. She is on dialysis and tolerating it well. She was seen at 2:30 p.m. Exam Narrative: WDWN in NAD skin no rash head ncat lungs clear to auscultation cor reg no rub or gallop abd BS+ nontender and soft ext 1+ edema and no cyanosis. Objective Data Vital Signs Vital Signs: Vital Signs - 24 hr 03/09/22 16:00 03/09/22 20:32 03/09/22 20:00 Temperature 35.9 C L Pulse Rate 60 60 60 Respiratory Rate 18 Blood Pressure 156/56 H Pulse Oximetry 96 Oxygen Delivery 03/09/22 20:00 03/09/22 21:13 03/10/22 00:00 Temperature Pulse Rate 60 Respiratory Rate Blood Pressure Pulse Oximetry 95 Oxygen Delivery Room Air Room Air 03/10/22 04:00 03/10/22 04:35 03/10/22 08:00 Temperature 37.0 C Pulse Rate 60 65 60 Respiratory Rate 20 Blood Pressure 117/48 L Pulse Oximetry 99 Oxygen Delivery 03/10/22 08:44 03/10/22 11:40 03/10/22 13:20 Temperature Pulse Rate 60 61 Respiratory Rate 20 Blood Pressure 134/84 Pulse Oximetry 98 Oxygen Delivery Room Air 03/10/22 11:47 03/10/22 13:40 03/10/22 14:00 Temperature 37.2 C Pulse Rate 61 60 60 Respiratory Rate 16 Blood Pressure 143/57 H 132/54 L 130/47 L Pulse Oximetry Oxygen Delivery 03/10/22 13:00 03/10/22 12:02 03/10/22 12:20 Temperature Pulse Rate 60 60 59 L Respiratory Rate Blood Pressure 131/55 L 130/54 L 113/45 L Pulse Oximetry Oxygen Delivery 03/10/22 12:40 Temperature Pulse Rate 61 Respiratory Rate Blood Pressure 114/46 L Pulse Oximetry Oxygen Delivery Intake/Output Intake/Output: Intake & Output 03/07/22 03/08/22 03/09/22 03/10/22 23:59 23:59 23:59 23:59 Intake Total 880 1370 840 950 Output Total 3200 Balance -2320 1370 840 950 Meds/Results Medications: Active Medications Generic Name Dose Route Start Last Admin Trade Name Freq PRN Reason Stop Dose Admin Aspirin 81 mg 03/06/22 21:00 03/09/22 20:09 Aspirin 81 Mg Enteric Tablet PO 81 mg HS ISSA Administration Buspirone HCl 10 mg 03/06/22 09:00 03/10/22 08:43 Buspirone Hcl 10 Mg Tablet PO 10 mg BID ISSA Administration Calcium Carbonate 200 mg 03/06/22 16:21 Calcium Carbonate (Tums) 500 Mg (200 Mg Elemental) PO Q6H PRN Indigestion Dextrose 12.5 gm 03/06/22 07:37 03/06/22 16:30 Dextrose 50% 25 Gm/50 Ml Syringe IV PUSH 12.5 gm PRN PRN Administration Hypoglycemia Protocol Docusate Sodium 100 mg 03/09/22 21:00 03/10/22 08:43 Docusate Sodium 100 Mg Capsule PO 100 mg Q12HR ISSA Administration Epoetin Severino-epbx 10,000 units 03/07/22 12:17 03/07/22 11:31 Epoetin Severino-Epbx 10,000 Units/Ml Vial IV PUSH 10,000 units TUTHSA ISSA Administration Furosemide 80 mg 03/08/22 17:00 03/10/22 08:42 Furosemide 80 Mg Tablet PO 80 mg BID ISSA Administration Glucagon 1 mg 03/06/22 07:37 Glucagon For Inj 1 Mg Vial IM PRN PRN Hypoglycemia Protocol Glucose 15 gm 03/06/22 07:37 03/06/22 12:34 Glucose Oral Gel 15 Gm Of Glucse In 37.5 Gm Tube PO 15
[2022-03-10 16:36] LABS: Glucose Point of Care 118 mg/dl (65-105)
[2022-03-10 17:19] LABS: Sodium 134 mmol/L (137-145)
[2022-03-10] MEDS: MIRTAZAPINE 7.5 MG TABLET PO (20:15)
[2022-03-10] MEDS: QUEtiapine FUMARATE 25 MG TABLET 50 MG PO (20:15)
[2022-03-10] MEDS: traZODone HCL 50 MG TABLET PO (20:16)
[2022-03-10] MEDS: ASPIRIN 81 MG ENTERIC TABLET PO (20:16)
[2022-03-10 22:24] LABS: Glucose Point of Care 254 mg/dl (65-105)
--- NOTE | 2022-03-10 23:59 | PM.IMPN ---
Progress Note: A&P Assessment and Plan (1) Chest pressure: Code(s): R07.89 - Other chest pain Status: Acute Assessment and Plan: Patient did report some chest pressure/palpitations today, as well as lower extremity cramping and pain. Patient is currently chest pain-free, negative Homans sign. Her lower extremity swelling has actually improved. She does have anxiety in the mornings, which I suspect is the cause in this case. Venous duplex showed no lower extremity DVT. EKG showed no changes from previous EKG, ventricular pacing. Troponin was not elevated Chest x-ray showed persistent right basilar infiltrates which may represent atelectasis or pneumonia, and cardiomegaly. 03/10- patient remains chest pain free. No shortness of breath. She was lying recumbent today in dialysis during my encounter with her. She had no concerns. (2) UTI (urinary tract infection): Qualifiers: Hematuria presence: with hematuria Urinary tract infection type: site unspecified Qualified Code(s): N39.0 - Urinary tract infection, site not specified; R31.9 - Hematuria, unspecified Code(s): N39.0 - Urinary tract infection, site not specified Status: Acute Assessment and Plan: Patient with history of recurrent Enterococcus UTIs, presenting with acute confusion. Outpatient UA grew Enterococcus sensitive to vancomycin and ampicillin. She denies abdominal pain or urinary changes. She states she does produce urine, though she does produce little urine and infrequently. Is followed by urology for her recurrent UTIs, and subsequently a consult was placed for additional recommendations. Urology advised that they will see this patient as outpatient for cystoscopy, with follow-up to Dr. Bell for recurrent UTIs. CT abdomen pelvis showed: 2.3 cm exophytic soft tissue mass of left kidney, possibly hemorrhagic/complicated cyst; less likely would be renal malignancy KUB showed no acute abdominal findings. 03/09- Treatment was initiated with vancomycin however, she was transitioned to cefdinir (renally dosed) due to sensitivities of her outpatient urine culture yesterday. However, this morning, her inpatient culture showed resistance to ampicillins and she will be placed back on the vancomycin to continue her course of treatment for an additional 2 days, total of 5 days on vancomycin therapy. Renal US showed renal cysts. 03/10 Last day of IV vancomycin today and will D/C in the AM. No leukocytosis, fever, urinary symptoms at this time. Blood cultures with no growth. Patient will follow up outpatient with Urology for cystoscopy. (3) Altered mental status: Qualifiers: Altered mental status type: unspecified Qualified Code(s): R41.82 - Altered mental status, unspecified Code(s): R41.82 - Altered mental status, unspecified Status: Acute Assessment and Plan: CT head showed no acute intracranial abnormality, likely due to acute UTI. Plan as above. Patient is generally mildly confused at baseline. She asks that we discussed is under care with her daughter. (4) Shortness of breath: Code(s): R06.02 - Shortness of breath Status: Acute Assessment and Plan: This has resolved. Patient is on room air at this time feeling well today with no complaints of shortness of breath. 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 Glucose was 92. We resumed her home dosing and will continue home meds upon discharge. Hypoglycemic protocol in place. (6) RENATE on CPAP: Code
[2022-03-11] VITALS: PULSE 60
[2022-03-11 03:53] VITALS: BP 138/48; PULSE 60; RESP 18; TEMP 36.3; O2SAT 96
[2022-03-11 04:00] VITALS: PULSE 60
[2022-03-11 05:54] LABS: Alanine Aminotransferase 12 U/L (6-35); Albumin Level 3.3 g/dL (3.5-5.1); Alkaline Phosphatase 139 U/L (38-126); Anion Gap 1 mmol/L (8-16); Aspartate Amino Transferase 28 U/L (14-36); Bilirubin,Total 0.6 mg/dL (0.2-1.3); Blood Urea Nitrogen 26 mg/dL (7-17); Calcium 8.4 mg/dL (8.4-10.2); Carbon Dioxide 36 mmol/L (22-30); Chloride 95 mmol/L (98-107); Estimated CRCL calculation 14 ml/min; Estimated Glomerular Filt Rate 14; Glucose 136 mg/dL (65-110); Potassium 4.1 mmol/L (3.4-5.0); Sodium 132 mmol/L (137-145)
[2022-03-11] MEDS: LEVOTHYROXINE SODIUM 88 MCG TABLET PO (06:23)
[2022-03-11 08:03] VITALS: PULSE 62
[2022-03-11] MEDS: polyethylene glycoL 3350 17 GM POWD.PACK PO (08:10)
[2022-03-11] MEDS: SEVELAMER CARBONATE 800 MG TABLET 1600 MG PO (08:10)
[2022-03-11] MEDS: DOCUSATE SODIUM 100 MG CAPSULE PO (08:10)
[2022-03-11] MEDS: QUEtiapine FUMARATE 25 MG TABLET PO (08:11)
[2022-03-11] MEDS: FUROSEMIDE 80 MG TABLET PO (08:11)
[2022-03-11] MEDS: PANTOPRAZOLE 40 MG TABLET PO (08:11)
[2022-03-11] MEDS: busPIRone HCL 10 MG TABLET PO (08:11)
[2022-03-11] MEDS: SERTRALINE HCL 50 MG TABLET PO (08:11)
[2022-03-11 08:13] LABS: Glucose Point of Care 107 mg/dl (65-105)
[2022-03-11 08:42] LABS: Basophils Percent Auto 0.4 % (0.2-1.2); Eosinophils Absolute Auto 0.1 K/mm3 (0-0.3); Eosinophils Percent Auto 1.8 % (0-4.4); Immature Granulocyte Absolute 0.02 K/mm3 (0.00-0.031); Immature Granulocyte Percent A 0.4 % (0-0.5); Lymphocytes Absolute Auto 1.15 K/mm3 (0.9-3.2); Lymphocytes Percent Auto 20.5 % (18.3-44.2); Mean Corpuscular HGB Conc 32.1 g/dl (32-36); Mean Corpuscular Hemoglobin 31.6 pg (26-34); Mean Corpuscular Volume 98.2 fl (80-100); Mean Platelet Volume 10.4 fl (7.4-10.4); Monocytes Absolute Auto 0.4 K/mm3 (0.1-0.6); Monocytes Percent Auto 7.5 % (2.6-8.5); Neutrophils Absolute Auto 3.9 K/mm3 (1.3-6.7); Neutrophils Percent Auto 69.4 % (45.5-73.1); Platelet Count Result 143 k/mm3 (150-375); Red Blood Count 2.85 M/mm3 (4.2-5.4); Red Cell Distribution Width 15.5 % (11.5-14.5); White Blood Count 5.6 K/mm3 (4.5-10.0)
--- NOTE | 2022-03-11 09:27 | PM.PNNEP ---
Progress Note: A&P Additional Plan 1. Diane has end-stage renal disease. this is due to hypertension and diabetes. Will do a treatment today to get her back on schedule 2. The patient has anemia. Hemoglobin is 8.6 still. This is likely due to end-stage renal disease. On Epogen with dialysis. 3. The patient has hypertension. Her blood pressure seems to have stabilized in the 120s to 140s. She is not on any antihypertensives. 4. the patient has a UTI. Urine culture is shows Enterococcus. she finished the course of vancomycin 5. mental status. This waxes and wanes. 6. The patient has diabetes. She is on meds per hospitalist. A1c is 5.8 7 the patient has swelling. on diuretics and dialysis. Subjective Date/time seen: 03/11/22 09:27 Interval history: Patient feels about the same today. She looks better. She is hoping to go home today Exam Narrative: WDWN in NAD skin no rash or subQ nodules head ncat lungs clear cor reg no rub or gallop abd BS+ nontender and soft ext 1+ edema Objective Data Vital Signs Vital Signs: Vital Signs - 24 hr 03/10/22 11:40 03/10/22 13:20 03/10/22 11:47 Temperature 37.2 C Pulse Rate 60 61 61 Respiratory Rate 16 Blood Pressure 134/84 143/57 H Pulse Oximetry Oxygen Delivery 03/10/22 13:40 03/10/22 14:00 03/10/22 13:00 Temperature Pulse Rate 60 60 60 Respiratory Rate Blood Pressure 132/54 L 130/47 L 131/55 L Pulse Oximetry Oxygen Delivery 03/10/22 12:02 03/10/22 12:20 03/10/22 12:40 Temperature Pulse Rate 60 59 L 61 Respiratory Rate Blood Pressure 130/54 L 113/45 L 114/46 L Pulse Oximetry Oxygen Delivery 03/10/22 16:00 03/10/22 14:20 03/10/22 15:30 Temperature 36.7 C Pulse Rate 60 60 61 Respiratory Rate 16 Blood Pressure 127/52 L 127/44 L Pulse Oximetry Oxygen Delivery 03/10/22 14:40 03/10/22 15:00 03/10/22 15:14 Temperature Pulse Rate 59 L 60 60 Respiratory Rate Blood Pressure 132/53 L 124/53 L 119/48 L Pulse Oximetry Oxygen Delivery 03/10/22 19:25 03/10/22 20:00 03/10/22 22:23 Temperature 36.9 C Pulse Rate 61 Respiratory Rate 20 Blood Pressure 149/48 H Pulse Oximetry 100 97 Oxygen Delivery Room Air Room Air 03/10/22 20:00 03/11/22 00:00 03/11/22 03:53 Temperature 36.3 C L Pulse Rate 63 60 60 Respiratory Rate 18 Blood Pressure 138/48 L Pulse Oximetry 96 Oxygen Delivery 03/11/22 04:00 Temperature Pulse Rate 60 Respiratory Rate Blood Pressure Pulse Oximetry Oxygen Delivery Intake/Output Intake/Output: Intake & Output 03/08/22 03/09/22 03/10/22 03/11/22 23:59 23:59 23:59 23:59 Intake Total 6384 094 3087 360 Output Total 1850 0 Balance 1370 840 -800 360 Meds/Results Medications: Active Medications Generic Name Dose Route Start Last Admin Trade Name Freq PRN Reason Stop Dose Admin Acetaminophen 650 mg 03/11/22 08:02 Acetaminophen 325 Mg Tablet PO Q6H PRN Mild Pain (1-3) or Fever Aspirin 81 mg 03/06/22 21:00 03/10/22 20:16 Aspirin 81 Mg Enteric Tablet PO 81 mg HS ISSA Administration Buspirone HCl 10 mg 03/06/22 09:00 03/11/22 08:11 Buspirone Hcl 10 Mg Tablet PO 10 mg BID ISSA Administration Calcium Carbonate 200 mg 03/06/22 16:21 Calcium Carbonate (Tums) 500 Mg (200 Mg Elemental) PO Q6H PRN Indigestion Dextrose 12.5 gm 03/06/22 07:37 03/06/22 16:30 Dextrose 50% 25 Gm/50 Ml Syringe IV PUSH 12.5 gm PRN PRN Administration Hypoglycemia Protocol Docusate Sodium 100 mg 03/09/22 21:00 03/11/22 08:10 Docusate Sodium 100 Mg Capsule PO 100 mg Q12HR ISSA Administration Epoetin Severino-epbx 10,000 units 03/07/22 12:17 03/10/22 15:44 Epoetin Severino-Epbx 10,000 Units/Ml Vial IV PUSH Not Given TUTA ISSA Furosemide 80 mg 03/08/22 17:00 03/11/22 08:11 Furosemide 80 Mg Tablet PO 80 mg BID
--- NOTE | 2022-03-11 10:14 | PM.DS ---
DS: Admitting Diagnosis Discharge Date 03/11/2022 Admitting Diagnosis Altered mental status Frequent falls Chest pressure UTI ESRD DS: Discharge Diagnosis Discharge Diagnosis (1) Chest pressure: Code(s): R07.89 - Other chest pain Status: Acute Assessment and Plan: Patient did report some chest pressure/palpitations today, as well as lower extremity cramping and pain. Patient is currently chest pain-free, negative Homans sign. Her lower extremity swelling has actually improved. She does have anxiety in the mornings, which I suspect is the cause in this case. Venous duplex showed no lower extremity DVT. EKG showed no changes from previous EKG, ventricular pacing. Troponin was not elevated Chest x-ray showed persistent right basilar infiltrates which may represent atelectasis or pneumonia, and cardiomegaly. 03/10- patient remains chest pain free. No shortness of breath. She was lying recumbent today in dialysis during my encounter with her. She had no concerns. (2) UTI (urinary tract infection): Qualifiers: Hematuria presence: with hematuria Urinary tract infection type: site unspecified Qualified Code(s): N39.0 - Urinary tract infection, site not specified; R31.9 - Hematuria, unspecified Code(s): N39.0 - Urinary tract infection, site not specified Status: Acute Assessment and Plan: Patient with history of recurrent Enterococcus UTIs, presenting with acute confusion. Outpatient UA grew Enterococcus sensitive to vancomycin and ampicillin. She denies abdominal pain or urinary changes. She states she does produce urine, though she does produce little urine and infrequently. Is followed by urology for her recurrent UTIs, and subsequently a consult was placed for additional recommendations. Urology advised that they will see this patient as outpatient for cystoscopy, with follow-up to Dr. Bell for recurrent UTIs. CT abdomen pelvis showed: 2.3 cm exophytic soft tissue mass of left kidney, possibly hemorrhagic/complicated cyst; less likely would be renal malignancy KUB showed no acute abdominal findings. 03/09- Treatment was initiated with vancomycin however, she was transitioned to cefdinir (renally dosed) due to sensitivities of her outpatient urine culture yesterday. However, this morning, her inpatient culture showed resistance to ampicillins and she will be placed back on the vancomycin to continue her course of treatment for an additional 2 days, total of 5 days on vancomycin therapy. Renal US showed renal cysts. 03/10 Last day of IV vancomycin today and will D/C in the AM. No leukocytosis, fever, urinary symptoms at this time. Blood cultures with no growth. Patient will follow up outpatient with Urology for cystoscopy. (3) Altered mental status: Qualifiers: Altered mental status type: unspecified Qualified Code(s): R41.82 - Altered mental status, unspecified Code(s): R41.82 - Altered mental status, unspecified Status: Acute Assessment and Plan: CT head showed no acute intracranial abnormality, likely due to acute UTI. Plan as above. Patient is generally mildly confused at baseline. She asks that we discussed is under care with her daughter. (4) Shortness of breath: Code(s): R06.02 - Shortness of breath Status: Acute Assessment and Plan: This has resolved. Patient is on room air at this time feeling well today with no complaints of shortness of breath. (5) Diabetes mellitus with neuropathy: Qualifiers: Diabetes mellitus type: type 2 Diabetes mellitus halfway insulin use: with halfway use Qualified Code(s): E11.40 - Type 2 diabetes mellitus with diabetic neuropathy, unspecified; Z79.4 - prison (current) use of insulin Code(s): E11.40 - Type 2 diabetes mellitus with diabetic neuropathy, unspecified Status: Acute Assessment and Plan: Patient has resumed eating as normal. Gluc
--- NOTE | 2022-03-11 11:20 | PC.NURSE ---
No dialysis for today per Dr Sutherland. Patient to follow up outpatient.
[2022-03-11 12:00] VITALS: PULSE 61
--- NOTE | 2022-03-11 12:17 | PCNFU ---
Nutrition Follow-Up Complete: Inadequate oral intake related to decreased appetite as evidenced by 9lb reduction of usual body weight of 200lbs. Goal: Encourage meal intake of 75% or more with Nepro BID (kcal 425, pro 19gm each). - Pt is not meeting goal, continue current goal. Pt current nutrition is renal dialysis. Last recorded weight is 92.2 kg (increase of 5.1kg from 03/06/2022) Bowel Motility: +BM (03/10). Labs Reviewed: Hgb 9.0, Hct 28.0 Meds Noted: Zoloft, Synthroid, Zofran, Novolog Skin: Bruising arms/legs. Additional Notes: Pt reports an alright appetite. Pt is currently eating less than 25%, reports drinking Nepro BID (kcal 425, pro 19gm each). Pt was advised to continue drinking Nepro and encouraged to eat more of her meals. Pt reports she liked the hospital food. Agree with diet orders. Monitor changes in wt, oral intake %, and labs every 5 days.
--- NOTE | 2022-03-11 13:54 | PCNSR ---
On 03/11/22, the student, Leeann Lovell, provided care and completed [facility] documentation on this patient. I have reviewed the student's documentation and agree with the findings.
== END 2022-03-11 12:20 | disposition home health service (06) | DRG 689 ==
LOC: ANHED 23:05 → ANH2MED 03-06 01:13
PROVIDERS: Internal Medicine Nephrology; Student in an Organized Health Care Education/Training Program; Admitting Provider Internal Medicine; Emergency Provider Emergency Medicine; PCP Internal Medicine; Visit Provider Nurse Practitioner Family
DX: N39.0 Urinary tract infection, site not specified (principal); N18.6 End stage renal disease; I12.0 Hypertensive chronic kidney disease with stage 5 chronic kidney disease or end stage renal disease; E87.1 Hypo-osmolality and hyponatremia; B95.2 Enterococcus as the cause of diseases classified elsewhere; E11.22 Type 2 diabetes mellitus with diabetic chronic kidney disease; E11.42 Type 2 diabetes mellitus with diabetic polyneuropathy; E11.319 Type 2 diabetes mellitus with unspecified diabetic retinopathy without macular edema; R41.0 Disorientation, unspecified; D63.1 Anemia in chronic kidney disease; N28.1 Cyst of kidney, acquired; G47.33 Obstructive sleep apnea (adult) (pediatric); I48.91 Unspecified atrial fibrillation; E78.5 Hyperlipidemia, unspecified; R07.89 Other chest pain; F41.9 Anxiety disorder, unspecified; E03.9 Hypothyroidism, unspecified; M10.9 Gout, unspecified; S40.022A Contusion of left upper arm, initial encounter; S80.12XA Contusion of left lower leg, initial encounter; W19.XXXA Unspecified fall, initial encounter; Z99.2 Dependence on renal dialysis; Z79.82 Long term (current) use of aspirin
CPT/HCPCS: 36415; 51701; 70450; 71045; 73060; 73090; 73502; 73562; 73610; 74176; 76775; 80053; 80069; 80202; 81001; 82948; 83036; 83605; 84100; 84295; 84439; 84443; 84480; 84484; 85025; 86706; 87040; 87086; 87147; 87181; 87186; 87340; 93005; 93970; 94002; 94660; 96365; 96366; 96367; 97110; 97161; 97165; 97535; 99285; A9270; G0257; G0378; J1815; J1956; J2405; J3370; J7040; Q5105

== ENCOUNTER 2022-04-14 14:58 | Outpatient (NON) | payer MEDICARE, SELFPAY ==
[2022-04-14 15:23] LABS: Appearance Urine Clear (Clear); Bilirubin Urine Negative (Negative); Blood Urine Negative (Negative); Color Urine Yellow (Yellow); Glucose Urine UA Negative (Negative); Ketones Urine Negative (Negative); Leukocyte Esterase Ur Negative LEU/UL (Negative); Nitrate Urine Negative (Negative); Protein Urine 3+ mg/dL (Negative); Specific Grav Ur 1.015 (1.001-1.035); Urobilinogen Urine 0.2 mg/dL (<2.0); pH Urine 7.5 (5.0-9.0)
[2022-04-14 15:35] LABS: RBC Urine 0-2 /hpf (0-2); Squamous Epithelial Cell Urine Rare /hpf (Few); WBC Urine 0-3 /hpf
[2022-04-14 15:38] LABS: Add Urine Microscopic? YES
== END 2022-04-14 14:59 | disposition home or self-care (01) ==
PROVIDERS: PCP Internal Medicine; Visit Provider Internal Medicine
DX: N39.0 Urinary tract infection, site not specified (principal); R31.9 Hematuria, unspecified
CPT/HCPCS: 81001

== ENCOUNTER 2022-04-27 07:50 | Outpatient (CLI) | payer MEDICARE, SELFPAY ==
[2022-04-27 09:38] LABS: Add Urine Microscopic? YES; Appearance Urine Clear (Clear); Bilirubin Urine Negative (Negative); Blood Urine Negative (Negative); Color Urine Yellow (Yellow); Glucose Urine UA Negative (Negative); Ketones Urine Trace mg/dL (Negative); Leukocyte Esterase Ur Trace LEU/UL (Negative); Nitrate Urine Negative (Negative); Protein Urine 3+ mg/dL (Negative); Urobilinogen Urine 0.2 mg/dL (<2.0); pH Urine 5.5 (5.0-9.0)
[2022-04-27 09:47] LABS: RBC Urine 0-2 /hpf (0-2); Squamous Epithelial Cell Urine Many /hpf (Few); Transitional Epi Cells Urine Rare /hpf (None Seen); WBC Urine 16-20 /hpf
== END 2022-04-27 07:51 | disposition home or self-care (01) ==
PROVIDERS: PCP Internal Medicine; Visit Provider Internal Medicine
DX: N39.0 Urinary tract infection, site not specified (principal); R31.9 Hematuria, unspecified
CPT/HCPCS: 81001; 87086; 87088

== ENCOUNTER 2022-05-05 11:20 | Outpatient (NON) | payer MEDICARE, SELFPAY ==
[2022-05-05 11:44] LABS: Appearance Urine Clear (Clear); Bilirubin Urine Negative (Negative); Blood Urine Negative (Negative); Color Urine Yellow (Yellow); Glucose Urine UA Negative (Negative); Ketones Urine 1+ mg/dL (Negative); Leukocyte Esterase Ur Trace LEU/UL (Negative); Nitrate Urine Negative (Negative); Protein Urine 3+ mg/dL (Negative); Urobilinogen Urine 0.2 mg/dL (<2.0); pH Urine 5.5 (5.0-9.0)
[2022-05-05 12:01] LABS: RBC Urine 0-2 /hpf (0-2); Squamous Epithelial Cell Urine Few /hpf (Few)
[2022-05-05 12:09] LABS: Add Urine Microscopic? YES
== END 2022-05-05 11:21 | disposition home or self-care (01) ==
LOC: ANHLAB 11:21
PROVIDERS: PCP Internal Medicine; Visit Provider Internal Medicine
DX: R31.9 Hematuria, unspecified (principal); N39.0 Urinary tract infection, site not specified
CPT/HCPCS: 81001; 87086

== ENCOUNTER 2022-07-06 07:45 | Outpatient (NON) | payer MEDICARE, SELFPAY ==
[2022-07-06 08:34] LABS: Bacteria Urine Trace /hpf; Mucus Urine Rare /lpf; Squamous Epithelial Cell Urine Many /hpf (Few); WBC Urine 31-50 /hpf
[2022-07-06 08:44] LABS: Add Urine Microscopic? YES; Appearance Urine Cloudy (Clear); Bilirubin Urine Negative (Negative); Blood Urine Negative (Negative); Color Urine Amber (Yellow); Glucose Urine UA Negative (Negative); Ketones Urine Negative (Negative); Leukocyte Esterase Ur 2+ LEU/UL (Negative); Nitrate Urine Negative (Negative); Protein Urine 2+ mg/dL (Negative); Specific Grav Ur 1.017 (1.001-1.035); Urobilinogen Urine Negative mg/dL (<2.0)
== END 2022-07-06 07:46 | disposition home or self-care (01) ==
PROVIDERS: PCP Internal Medicine; Visit Provider Internal Medicine
DX: R31.9 Hematuria, unspecified (principal); N39.0 Urinary tract infection, site not specified
CPT/HCPCS: 81001; 87086; 87147; 87181; 87186

== ENCOUNTER 2022-08-31 12:51 | Outpatient (CLI) | payer MEDICARE, SELFPAY ==
[2022-08-31 13:19] LABS: Appearance Urine Clear (Clear); Bilirubin Urine Negative (Negative); Blood Urine Negative (Negative); Color Urine Yellow (Yellow); Glucose Urine UA Negative (Negative); Ketones Urine Negative (Negative); Leukocyte Esterase Ur Trace LEU/UL (Negative); Nitrate Urine Negative (Negative); Protein Urine 3+ mg/dL (Negative); Urobilinogen Urine 0.2 mg/dL (<2.0); pH Urine 7.5 (5.0-9.0)
[2022-08-31 13:31] LABS: RBC Urine 0-2 /hpf (0-2); Squamous Epithelial Cell Urine Moderate /hpf (Few); Transitional Epi Cells Urine Rare /hpf (None Seen)
[2022-08-31 13:50] LABS: Add Urine Microscopic? YES
== END 2022-08-31 12:52 | disposition home or self-care (01) ==
PROVIDERS: PCP Internal Medicine; Visit Provider Internal Medicine
DX: N39.0 Urinary tract infection, site not specified (principal); R44.3 Hallucinations, unspecified
CPT/HCPCS: 81001; 87086; 87147; 87181; 87186

== ENCOUNTER 2022-09-08 14:37 | Inpatient (IN) | payer MEDICARE, OTHER, SELFPAY ==
[2022-09-08] VITALS (27 sets, daily range): BP systolic 107–193; BP diastolic 50–143; PULSE 60–66; RESP 12–22; TEMP 36.9; O2SAT 88–100
--- NOTE | ~2022-09-08 | CT_ITS ---
EXAMINATION: CT brain wo con DATE: 09/08/2022 18:20 INDICATION: AMS< confusion . TECHNIQUE: Computed tomography (CT) of the head was performed without intravenous contrast. The mA wa s adjusted according to patient size. Iterative reconstruction technique was employed. The dose-lengt h product was 681.00 mGy-cm. COMPARISON: 03/05/2022. FINDINGS: No acute intracranial hemorrhage or extra-axial fluid collection. No hydrocephalus, mass, or herniation. No acute ischemic infarct. Unremarkable dural venous sinus attenuation. No acute osseous abnormality. The aerated spaces are clear. Moderate atrophy and chronic white matter change. Atherosclerotic intracranial calcification. Bilater al lens replacements. 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 IMPRESSION: No acute intracranial process. Reviewed, dictated and finalized at location K. DRYING MACHINE OPERATOR
--- NOTE | ~2022-09-08 | XR_ITS ---
EXAMINATION: XR chest 2V Exam Date/Time: 09/08/2022 18:15 LITHOGRAPH DESIGNER HISTORY: ams, confusion Comparison: 03/08/2022. RESULT: Lines, tubes, and devices: Right subclavian stent. Left pacer with a single intact lead. Cardiac flor ve replacement. Intact sternotomy wires. Lungs and pleura: Mid and lower lung reticulonodular opacities. Subsegmental airspace disease in the left lung base. Mild left costophrenic angle blunting. Cardiomediastinal silhouette: Stable. Other: No acute osseous or upper abdominal finding. IMPRESSION: Pulmonary opacities may represent respiratory bronchiolitis, with atelectasis/consolidation in the le ft lower lobe and a small left pleural effusion. Reviewed, dictated and finalized at location K. OGRAPH DESIGNER IMPRESSION: Pulmonary opacities may represent respiratory bronchiolitis, with atelectasis/c onsolidation in the left lower lobe and a small left pleural effusion.
--- NOTE | 2022-09-08 14:44 | ECG_ITS ---
Measurements Intervals [place] Rate: 67 P: MT: 0 QRS: -73 QRSD: 183 T: 105 QT: 516 QTc: 547 Interpretive Statements ELECTRONIC VENTRICULAR PACEMAKER ABNORMAL RHYTHM ECG COMPARED TO ECG 03/08/2022 11:50:15 NO SIGNIFICANT CHANGES Electronically Signed On 09-08-2022 16:38:53 STEREOPTIC PROJECTION TOPOGRAPHER by Lisa Jovel M.D.
[2022-09-08 15:07] LABS: Basophils Percent Auto 0.5 % (0.2-1.2); Eosinophils Percent Auto 0.7 % (0-4.4); Hematocrit 35.1 % (37.0-47.0); Immature Granulocyte Absolute 0.01 K/mm3 (0.00-0.031); Immature Granulocyte Percent A 0.2 % (0-0.5); Lymphocytes Absolute Auto 1.27 K/mm3 (0.9-3.2); Lymphocytes Percent Auto 29.5 % (18.3-44.2); Mean Corpuscular HGB Conc 31.3 g/dl (32-36); Mean Corpuscular Hemoglobin 31.4 pg (26-34); Mean Corpuscular Volume 100.3 fl (80-100); Mean Platelet Volume 11.7 fl (7.4-10.4); Monocytes Absolute Auto 0.3 K/mm3 (0.1-0.6); Neutrophils Absolute Auto 2.7 K/mm3 (1.3-6.7); Neutrophils Percent Auto 62.1 % (45.5-73.1); Platelet Count Result 115 k/mm3 (150-375); Red Cell Distribution Width 15.4 % (11.5-14.5); White Blood Count 4.3 K/mm3 (4.5-10.0)
[2022-09-08 15:17] LABS: Alanine Aminotransferase 15 U/L (6-35); Alkaline Phosphatase 154 U/L (38-126); Anion Gap 7 mmol/L (8-16); Aspartate Amino Transferase 28 U/L (14-36); Bilirubin,Total 0.4 mg/dL (0.2-1.3); Blood Urea Nitrogen 44 mg/dL (7-17); Calcium 8.9 mg/dL (8.4-10.2); Carbon Dioxide 31 mmol/L (22-30); Chloride 91 mmol/L (98-107); Estimated CRCL calculation 10 ml/min; Estimated Glomerular Filt Rate 10; Glucose 160 mg/dL (65-110); Potassium 4.7 mmol/L (3.4-5.0); Sodium 129 mmol/L (137-145)
[2022-09-08 15:29] LABS: Partial Thromboplastin Time 32.7 SECONDS (22.3-36.8)
[2022-09-08 17:34] LABS: Glucose Point of Care 137 mg/dl (65-105)
--- NOTE | 2022-09-08 18:16 | PC.NURSE ---
Pt's daughter at bedside reports that confusion comes and goes. At this time she is alert and oriented x4. She follows commands. Denies pain or any other complaints.
--- NOTE | 2022-09-08 18:16 | ED.AMS ---
HPI - Altered Mental Status General Chief Complaint: Altered Mental Status <Luisa Chaves PA-C - Last Filed: 09/09/22 03:30> Stated Complaint: increased agitation - on Cipro for UTI x 7 days <Luisa Chaves PA-C - Last Filed: 09/09/22 03:30> Time Seen by Provider: 09/08/22 18:05 <Luisa Chaves PA-C - Last Filed: 09/09/22 03:30> Source: patient, family and old records reviewed <LULA Campbell Last Filed: 09/09/22 03:30> Mode of arrival: EMS <LULA Campbell Last Filed: 09/09/22 03:30> Limitations: clinical condition <LULA Campbell Last Filed: 09/09/22 03:30> History of Present Illness HPI narrative: Patient is an 87-year-old female who presents the ED via EMS with report of altered mental status. Patient's daughter bedside assisted in providing information. She reports that patient has confused and altered over the last 1 week. She was diagnosed with a UTI last Wednesday and started on ciprofloxacin. Daughter reports the confusion and hallucinations have not improved. Patient will have good days and bad days. She has had decreased intake, generalized weakness. She has had a mild upper respiratory infection recently with cough and congestion. No fevers. Patient denies any pain currently. She denies difficulty breathing, chest pain. Patient has a history of end-stage renal disease, sees Dr. Sutherland, schedule Wednesday, Wednesday, Wednesday. She missed 2 dialysis appointments last week due to the confusion. <Luisa Chaves PA-C - Last Filed: 09/09/22 03:30> Related Data Home Medications: Home Medications Medication Instructions Recorded Confirmed sevelamer HCl 800 mg tablet 1,600 mg PO TID 08/20/20 09/09/22 Lactobacillus 1 cap PO DAILY 02/26/21 09/09/22 no.51-Bifidobacterium no.4 50 billion cell capsule (up4 Probiotics Ultra) aspirin 81 mg tablet,delayed 81 mg PO HS 02/26/21 09/09/22 release (Adult Low Dose Aspirin) biotin 1,000 mcg chewable tablet 100 mcg PO QPM 02/26/21 09/09/22 d-mannose 500 mg capsule 1,000 mg PO BID 07/02/21 07/13/22 quetiapine 25 mg tablet 25 mg PO QAM 03/06/22 09/09/22 quetiapine 25 mg tablet 50 mg PO QHS 03/06/22 09/09/22 simvastatin 40 mg tablet 40 mg PO QHS 03/06/22 09/09/22 trazodone 50 mg tablet 50 mg PO QHS 03/06/22 09/09/22 Dicyclomine/Benadryl/Maalox PO 04/03/22 07/13/22 allopurinol 100 mg tablet 100 mg PO HS 09/09/22 09/09/22 buspirone 10 mg tablet 10 mg PO BID 09/09/22 09/09/22 cyclobenzaprine 5 mg tablet 5 mg PO DAILY 09/09/22 09/09/22 doxycycline hyclate 100 mg capsule 100 mg PO DAILY 09/09/22 09/09/22 furosemide 40 mg tablet 40 mg PO Q12H 09/09/22 09/09/22 levothyroxine 88 mcg tablet 88 mcg PO DAILY 09/09/22 09/09/22 omeprazole 40 mg capsule,delayed 40 mg PO BID 09/09/22 09/09/22 release ondansetron 8 mg disintegrating 8 mg PO PRN PRN Nausea 09/09/22 09/09/22 tablet sertraline 50 mg tablet 50 mg PO DAILY 09/09/22 09/09/22 <Luisa Chaves PA-C - Last Filed: 09/09/22 03:30> Allergies/Adverse Reactions: Allergies Allergy/AdvReac Type Severity Reaction Status Date / Time amoxicillin Allergy Unknown Unknown Verified 09/08/22 18:05 clavulanic acid Allergy Unknown Unknown Verified 09/08/22 18:05 Penicillins Allergy Unknown Other Verified 09/08/22 18:05 Sulfa (Sulfonamide Allergy Unknown Unknown Verified 09/08/22 18:05 Antibiotics) sulfamethoxazole Allergy Unknown Unknown Verified 09/08/22 18:05 <Luisa Chaves PA-C - Last Filed: 09/09/22 03:30> Review of Systems Review of Systems: CONSTITUTIONAL: Reports generalized weakness. Denies fever, chills, or sweats. EYES: Denies visual changes. ENT: Reports congestion. CARDIOVASCULAR: Denies chest pain. RESPIRATORY: Reports cough. Denies dyspnea. GASTROINTESTINAL: Denies abdominal pain, nausea, vomiting, or diarrhea. GENITOURINARY: Denies dysuria or hematuria. MUSCULOSKELETAL: Denies back pain,
[2022-09-08 19:00] LABS: Add Urine Microscopic? YES; Appearance Urine Clear (Clear); Bilirubin Urine Negative (Negative); Blood Urine 1+ (Negative); Color Urine Yellow (Yellow); Glucose Urine UA Negative (Negative); Ketones Urine Trace mg/dL (Negative); Leukocyte Esterase Ur Negative LEU/UL (Negative); Nitrate Urine Negative (Negative); Protein Urine 2+ mg/dL (Negative); Specific Grav Ur 1.015 (1.001-1.035); Urobilinogen Urine 0.2 mg/dL (<2.0); pH Urine 6.5 (5.0-9.0)
[2022-09-08 19:11] LABS: Amorphous Sediment Urine Few; Mucus Urine Rare /lpf; Squamous Epithelial Cell Urine Rare /hpf (Few); WBC Urine 0-3 /hpf
[2022-09-08 19:25] LABS: Influenza A QL RT-PCR Negative (Negative); Influenza B QL RT-PCR Negative (Negative); SARS-CoV-2 RNA PCR Negative
[2022-09-08] MEDS: LORazepam INJ (*CRX) 2 MG/ML VIAL 0.5 MG IV PUSH (20:39)
[2022-09-08 20:48] LABS: Ammonia < 9 umol/L (9-30)
[2022-09-08 21:00] LABS: NT Pro B Type Natriuretic Pept 2490 pg/mL (5-100); Troponin I < 0.012 ng/mL (0.000-0.034)
--- NOTE | 2022-09-08 22:19 | PM.IMHP ---
H&P: HPI History of Present Illness Date/Time: 09/08/22 22:19 Chief Complaint: altered mental status Narrative: This is an 87-year-old female with past medical history significant for dementia, dyslipidemia, end-stage renal disease, hemodialysis, patient recently treated for urinary tract infection, just missed last 2 treatments of hemodialysis, history has been obtained from daughter who is at bedside patient is delirious, has had hallucinations at home, she was on a ciprofloxacin course for urinary tract infection. While I was in the room trying to obtain a history from the patient she became agitated and belligerent and was trying to pull out her IV. PATIENT TESTED NEGATIVE FOR INFLUENZA TYPE A, TYPE B AND COVID-19. CT of the head was reported as: FINDINGS: No acute intracranial hemorrhage or extra-axial fluid collection. No hydrocephalus, mass, or herniation. No acute ischemic infarct. Unremarkable dural venous sinus attenuation. No acute osseous abnormality. The? aerated spaces are clear. Moderate atrophy and chronic white matter change. Atherosclerotic intracranial calcification. Bilateral lens replacements. 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 IMPRESSION:? No acute intracranial process. a chest x-ray was reported as: IMPRESSION: Pulmonary opacities may represent respiratory bronchiolitis, with atelectasis/consolidation in the left lower lobe and a small left pleural effusion. patient is been admitted for further evaluation management and treatment. [facility] Past Medical History Medical History (Updated 09/09/22 @ 04:50 by Brandon Otto MD) A-fib Abdominal pain Abnormal bruising Abrasion Alopecia Altered mental status Benign essential hypertension Blister Blood blister BMI 27.0-27.9,adult BMI 29.0-29.9,adult BMI 30.0-30.9,adult BMI 30.0-30.9,adult BMI 31.0-31.9,adult BMI 32.0-32.9,adult BMI 33.0-33.9,adult BMI 34.0-34.9,adult BMI 35.0-35.9,adult BMI 36.0-36.9,adult Callus of foot Candidiasis Chronic acquired lymphedema Chronic pain CKD (chronic kidney disease) stage 3, GFR 30-59 ml/min Congestion of both ears Constipation Contusion of lower extremity Diabetes mellitus with neuropathy Diabetic retinopathy DM type 2 (diabetes mellitus, type 2) Dysuria Encounter for routine adult health examination without abnormal findings ESRD (end stage renal disease) Follow up Frequent UTI Generalized edema GERD (gastroesophageal reflux disease) Gout Hyperlipidemia Hypoglycemia associated with type 2 diabetes mellitus Hypothyroidism (acquired) Nausea Non-healing skin lesion On burlapper drug therapy RENATE (obstructive sleep apnea) RENATE on CPAP Pressure injury of right buttock, stage 1 Renal failure SK (seborrheic keratosis) Stress Urinary frequency UTI (urinary tract infection) Venous stasis ulcer of lower extremity Wound of buttock Surgical History Surgical History No pertinent past surgical history Family History Family History (Reviewed 07/07/22 @ 15:01 by Clotilde Cano [facility]) Mother Diabetes mellitus Sibling Diabetes mellitus Cerebrovascular accident Social History Social History Smoking status: Never smoker Alcohol intake: never Substance use: never Spiritual care concerns: No Meds Home Medications and Allergies Home Medications Medication Instructions Recorded Confirmed Type sevelamer HCl 800 mg tablet 1,600 mg PO TID 08/20/20 09/09/22 History Lactobacillus 1 cap PO DAILY 02/26/21 09/09/22 History no.51-Bifidobacterium no.4 50 billion cell capsule (up4 Probiotics Ultra) aspirin 81 mg tablet,delayed 81 mg PO HS 02/26/21 09/09/22 History release (Adult Low Dose Aspirin) biotin 1,000 mcg chewable tablet 100 mcg PO QPM 02/26/21 09/09/22 History d-mannose 500 mg capsule 1,000 mg PO BID 07/02/21 07/13/22 History
[2022-09-08] MEDS: HALOPERIDOL LACTATE 5 MG/ML VIAL IM (23:14)
[2022-09-08 23:29] LABS: Glucose Point of Care 112 mg/dl (65-105)
[2022-09-09] VITALS (16 sets, daily range): BP systolic 114–175; BP diastolic 32–88; PULSE 59–96; RESP 16–20; TEMP 36–36.9; O2SAT 96–100; BMI 28.5
--- NOTE | 2022-09-09 00:32 | ADMGEN ---
This patient, iDane Rojas, was admitted to 2 Medical Room 251-01. Patient/family oriented to hospital policies and general routines including ID bracelet, bed and alarms, visiting hours, pain management, procedures, bathroom and other care routines, personal items, smoking policy, room service/diet, and visiting hours. Information on how to activate the Rapid Response Team has been discussed. Patient/Family are encouraged to report perceived risks to care and to ask questions if they do not understand what they are told or what they should do.
--- NOTE | 2022-09-09 03:10 | PC.NURSE ---
Pt admitted to 251 from the ER via cart with daughter. Pt A/O x3 ; however, talks to self, difficulty following instructions, then refuses to answer questions, will not respond to staff. Ecchymosis noted to arms, knees. Pt states that she falls at home. Pt states that she uses walker . Pt lives with daughter. Fall precautions in place.
--- NOTE | 2022-09-09 04:55 | P.PNCROSS_ITS ---
Event Note Event Note Event Note: rapid response was called to the patient's room after her heart rate was 150-1 00 and 60s objective: Blood pressure 160/90, heart rate 160, subjective: No chest pain general: Patient laying in bed in no acute distress HEENT: Atraumatic normocephalic PERRLA EOM intact no JVD neck supple respiratory: clear to auscultation bilaterally, no wheezes rhonchi or crackles cardiovascular irregular rate and rhythm, tachycardia. abdomen: Is distended, soft nontender no hepatosplenomegaly. extremities: No edema central nervous system: Awake alert move all 4 limbs , purposely skin: intact ASSESSMENT AND PLAN: 1- atrial fibrillation with rapid ventricular response: Transferred to IMU will start diltiazem drip echocardiogram in a.m. cardiology consult in a.m. will start anticoagulation
[2022-09-09 06:09] LABS: Basophils Percent Auto 0.7 % (0.2-1.2); Eosinophils Absolute Auto 0.1 K/mm3 (0-0.3); Eosinophils Percent Auto 1.7 % (0-4.4); Hematocrit 31.2 % (37.0-47.0); Hemoglobin 9.9 g/dL (12.0-15.0); Immature Granulocyte Absolute 0.01 K/mm3 (0.00-0.031); Immature Granulocyte Percent A 0.2 % (0-0.5); Immature Platelet Fraction Pct 3.4 % (0.9-11.2); Lymphocytes Absolute Auto 1.53 K/mm3 (0.9-3.2); Lymphocytes Percent Auto 36.4 % (18.3-44.2); Mean Corpuscular HGB Conc 31.7 g/dl (32-36); Mean Corpuscular Hemoglobin 31.3 pg (26-34); Mean Corpuscular Volume 98.7 fl (80-100); Mean Platelet Volume 11.2 fl (7.4-10.4); Monocytes Absolute Auto 0.4 K/mm3 (0.1-0.6); Neutrophils Absolute Auto 2.1 K/mm3 (1.3-6.7); Platelet Count Result 90 k/mm3 (150-375); Red Blood Count 3.16 M/mm3 (4.2-5.4); Red Cell Distribution Width 15.1 % (11.5-14.5); White Blood Count 4.2 K/mm3 (4.5-10.0)
[2022-09-09] MEDS: cefTRIAXone 2 GM in SODIUM CHLORIDE 0.9% IV 100 ML 200 ML IVPB (06:21)
[2022-09-09 06:26] LABS: Albumin Level 3.3 g/dL (3.5-5.1); Anion Gap 6 mmol/L (8-16); Blood Urea Nitrogen 48 mg/dL (7-17); Calcium 8.7 mg/dL (8.4-10.2); Carbon Dioxide 30 mmol/L (22-30); Chloride 94 mmol/L (98-107); Estimated CRCL calculation 9 ml/min; Estimated Glomerular Filt Rate 9; Glucose 90 mg/dL (65-110); Phosphorus 4.9 mg/dL (2.5-4.5); Potassium 4.4 mmol/L (3.4-5.0); Sodium 130 mmol/L (137-145)
--- NOTE | 2022-09-09 06:56 | PC.NURSE ---
Delay giving IVPB this am due to pt care. 3 IVPB scheduled for 0500,0500, 0600. Notified pharmacist of delay and abx scheduled at same time. Presently infusing second abx- vanco . Pt sound asleep, fall precautions in place.
[2022-09-09 06:59] LABS: Hepatitis B Surface Antigen Negative (Negative)
[2022-09-09 07:17] LABS: Hepatitis B Surface Anti Res Negative
--- NOTE | 2022-09-09 07:59 | PM.IMPN ---
Progress Note: A&P Assessment and Plan (1) Pneumonia: Code(s): J18.9 - Pneumonia, unspecified organism Status: Acute Assessment and Plan: Patient presented to emergency department with altered mental status. Chest x-ray concerning for bilateral opacities suggesting bronchiolitis and left lower lobe consolidation concerning for pneumonia. WBC 14.2. Influenza a and B and COVID-19 PCR negative Patient started on empiric antibiotics-azithromycin 500 mg IV Q 24 hours and Rocephin 2 g Q 24 hours. Vancomycin post HD ordered as well. Check MRSA nasal swab Trend CBC Continue supportive care Monitor respiratory status (2) Altered mental status: Qualifiers: Altered mental status type: unspecified Qualified Code(s): R41.82 - Altered mental status, unspecified Code(s): R41.82 - Altered mental status, unspecified Status: Acute Assessment and Plan: likely secondary to acute illness and could be multifactorial from recent ciprofloxacin course, as well as [address] of the head with no acute abnormalities Sodium 130, BUN 48, creatinine 4.7, glucose 90, phos 4.9, calcium 8.7, ammonia less than 9 B12 and folate within normal limits TSH 0.176, free T4 0.55 and total T3 0.67 ?polypharmacy Patient is A&O x3 currently and symptoms of hallucination and altered mental status likely secondary to pneumonia and missing dialysis verses sundowning in worsening dementia. Continue to monitor neuro status (3) ESRD on dialysis: Code(s): N18.6 - End stage renal disease; Z99.2 - Dependence on renal dialysis Status: Chronic Assessment and Plan: Chronic, continue dialysis and nephrology consulted for assistance with management Continue Sevelamer and furosemdie at current doses (4) Dementia: Qualifiers: Dementia behavioral or psychological symptom: unspecified whether behavioral, psychotic, or mood disturbance or anxiety Dementia severity: unspecified severity Dementia type: unspecified type Qualified Code(s): F03.90 - Unspecified dementia, unspecified severity, without behavioral disturbance, psychotic disturbance, mood disturbance, and anxiety Code(s): F03.90 - Unspecified dementia, unspecified severity, without behavioral disturbance, psychotic disturbance, mood disturbance, and anxiety Status: Chronic Assessment and Plan: Chronic, continue for now mirtazapine, sertraline, Seroquel and buspirone (5) Chronic atrial fibrillation: Code(s): I48.20 - Chronic atrial fibrillation, unspecified Status: Chronic Assessment and Plan: Chronic, rate controlled. Patient is not currently on anticoagulation given age and comorbidities (6) Hallucinations, visual: Code(s): R44.1 - Visual hallucinations Status: Acute Assessment and Plan: May be secondary to acute infection as above versus polypharmacy and worsening dementia. Will adjust current medications and monitor neuro status. Plan Code status: Full code Disposition: Inpatient Discharge plan: Patient lives with her spouse and daughter. PT/OT evaluation ordered and pending Time Spent With Patient Time with patient: 15 - 25 minutes Subjective Date/time seen: 09/09/22 07:59 Patient found lying in bed. She is lethargic but arouses easily to voice and answers all questions appropriately. She denies complaints of chest pain, shortness a breath, palpitations, abdominal pain, dysuria, flank pain, lower extremity edema, numbness or tingling. Review of Systems Review of Systems: All systems reviewed & are unremarkable except as noted in HPI and below Exam Narrative: General: No acute distress.? Well-developed older adult female lying in bed Mental Status/Psych: Awake, alert and oriented to person, place, month, year, county and current president. Clear and appropriate speech. Neutral mood and affect. cooperative. Skin: Skin fair, warm, and dry wit
[2022-09-09 08:38] LABS: Glucose Point of Care 121 mg/dl (65-105)
[2022-09-09 09:55] LABS: Vitamin B12 > 1000.0 pg/mL (239-931)
[2022-09-09 09:57] LABS: Thyroid Stimulating Hormone Reflex 0.176 uIU/mL (0.465-4.68)
[2022-09-09] MEDS: SEVELAMER CARBONATE 800 MG TABLET 1600 MG PO ×2 (10:17→17:51)
[2022-09-09] MEDS: ACIDOPHILUS/BULGARICUS CHEWABLE TABLET 2 TABLET BY MOUTH (10:17)
[2022-09-09] MEDS: SERTRALINE HCL 50 MG TABLET PO (10:18)
[2022-09-09] MEDS: LEVOTHYROXINE SODIUM 88 MCG TABLET PO (10:18)
[2022-09-09] MEDS: FUROSEMIDE 40 MG TABLET PO ×2 (10:18→20:39)
[2022-09-09] MEDS: busPIRone HCL 10 MG TABLET PO ×2 (10:18→17:52)
[2022-09-09] MEDS: QUEtiapine FUMARATE 25 MG TABLET PO (10:18)
[2022-09-09] MEDS: PANTOPRAZOLE 40 MG TABLET PO (10:18)
[2022-09-09 11:09] LABS: Free T4 Free Thyroxine Reflex 1.55 ng/dL (0.78-2.19)
[2022-09-09 11:52] LABS: Total Triiodothyronine (T3) 0.67 NG/ML (0.97-1.69)
[2022-09-09 12:29] LABS: Folic Acid > 20.0 ng/mL (2.76->20)
--- NOTE | 2022-09-09 12:34 | PC.NURSE ---
Patient off unit to dialysis at 1230.
[2022-09-09] MEDS: EPOETIN ALFA-EPBX 10,000 UNITS/ML VIAL 10000 UNITS IV PUSH (13:40)
[2022-09-09] MEDS: SODIUM CHLORIDE 0.9% IV 1,000 ML 999 ML IV CONT (13:40)
--- NOTE | 2022-09-09 15:50 | PM.CNNEP ---
Assessment and Plan Assessment and plan (1) End stage renal disease: Code(s): N18.6 - End stage renal disease Status: Chronic Assessment and Plan: HD today and continue M/W/ schedule follow electrolytes, volume status, and clearance (2) Altered mental status: Qualifiers: Altered mental status type: unspecified Qualified Code(s): R41.82 - Altered mental status, unspecified Code(s): R41.82 - Altered mental status, unspecified Status: Acute Assessment and Plan: due to acute illness appears better at this time head CT negative continue current therapy (3) Healthcare associated bacterial pneumonia: Code(s): J15.9 - Unspecified bacterial pneumonia Status: Inactive Assessment and Plan: suggestive by admission imaging follow culture data on antibiotic therapy (4) Dementia: Qualifiers: Dementia behavioral or psychological symptom: unspecified whether behavioral, psychotic, or mood disturbance or anxiety Dementia severity: unspecified severity Dementia type: unspecified type Qualified Code(s): F03.90 - Unspecified dementia, unspecified severity, without behavioral disturbance, psychotic disturbance, mood disturbance, and anxiety Code(s): F03.90 - Unspecified dementia, unspecified severity, without behavioral disturbance, psychotic disturbance, mood disturbance, and anxiety Status: Chronic Assessment and Plan: chronic issue restarted on home medications (5) Hypertension: Code(s): I10 - Essential (primary) hypertension Status: Chronic Assessment and Plan: well controlled follow trend of hemodynamics (6) Anemia: Code(s): D64.9 - Anemia, unspecified Status: Chronic Assessment and Plan: due to ESRD Epogen with HD follow trend of H/H Will continue to follow. History of Present Illness Reason for Consult Consult date: 09/09/22 Reason for consult: end stage renal disease Chief Complaint Chief complaint: AMS, hallucinations, ESRD on dialysis History of Present Illness Narrative: The patient is a 87-year-old female with a past medical history as outlined below who presented to [facility] Emergency room for further evaluation of altered mental status. The information I have with regard to her presentation is from review of her electronic medical records, ER notes, and discussion with family. Apparently, the patient has been somewhat delirious at home with hallucinations and agitated behavior. She apparently just completed a course of ciprofloxacin for presumed urinary tract infection. In spite of this antibiotic therapy, the patient's confusion and altered mentation seemed to progressively get worse. She apparently missed 2 treatments of dialysis last week because of her confusion but did attend her most recent session on 09/07/22. Workup and evaluation in the emergency room demonstrated the patient to be hemodynamically stable but she was quite agitated and belligerent with staff and attempted to pull out her IVs when she was in the ER. Routine blood test demonstrated labs consistent with her known history of end-stage renal disease and she was found to be influenza a/ B as well as COVID-[address] did not show any acute intracranial findings and her urinalysis was not indicative of a urinary tract infection. Her chest x-ray showed some suggestion of possible pneumonia along with bibasilar infiltrates. Given her altered mental status without a clear-cut etiology, she was admitted to the hospital for further evaluation and therapy. Renal consultation was requested due to her end-stage renal disease. Patient normally dialyzes on a Wednesday, Wednesday, Wednesday schedule at [facility] under the care of Dr. Tapan Sutherland. As already mentioned above, she received her last dialysis treatment on 09/07/12. She is currently receiv
[2022-09-09 19:35] LABS: Vancomycin Random 10.9 ug/mL (10-20)
[2022-09-09] MEDS: ASPIRIN 81 MG ENTERIC TABLET PO (20:38)
[2022-09-09] MEDS: MIRTAZAPINE 7.5 MG TABLET PO (20:38)
[2022-09-09] MEDS: HEPARIN SODIUM 5,000 UNITS/ML VIAL 5000 UNITS SUB-Q (20:39)
[2022-09-09] MEDS: FAMOTIDINE 10 MG TABLET PO (20:39)
[2022-09-09] MEDS: SIMVASTATIN 20 MG TABLET 40 MG PO (20:39)
[2022-09-09] MEDS: allopurinoL 100 MG TABLET PO (20:39)
[2022-09-09] MEDS: QUEtiapine FUMARATE 25 MG TABLET 50 MG PO (20:49)
[2022-09-09] MEDS: traMADol HCL (*CRX) 50 MG TABLET PO (20:52)
[2022-09-10 00:55] VITALS: BP 144/50; PULSE 67; RESP 16; TEMP 36.4; O2SAT 90
[2022-09-10] MEDS: cefTRIAXone 2 GM in SODIUM CHLORIDE 0.9% IV 100 ML 200 ML IVPB (04:57)
[2022-09-10 05:48] LABS: Basophils Percent Auto 0.9 % (0.2-1.2); Eosinophils Absolute Auto 0.1 K/mm3 (0-0.3); Eosinophils Percent Auto 1.6 % (0-4.4); Hematocrit 34.8 % (37.0-47.0); Hemoglobin 10.9 g/dL (12.0-15.0); Immature Granulocyte Absolute 0.01 K/mm3 (0.00-0.031); Immature Granulocyte Percent A 0.2 % (0-0.5); Immature Platelet Fraction Pct 4.9 % (0.9-11.2); Lymphocytes Percent Auto 37.4 % (18.3-44.2); Mean Corpuscular HGB Conc 31.3 g/dl (32-36); Mean Corpuscular Hemoglobin 30.6 pg (26-34); Mean Corpuscular Volume 97.8 fl (80-100); Mean Platelet Volume 12.6 fl (7.4-10.4); Monocytes Absolute Auto 0.4 K/mm3 (0.1-0.6); Neutrophils Absolute Auto 2.1 K/mm3 (1.3-6.7); Neutrophils Percent Auto 49.9 % (45.5-73.1); Platelet Count Result 75 k/mm3 (150-375); Red Blood Count 3.56 M/mm3 (4.2-5.4); Red Cell Distribution Width 15.2 % (11.5-14.5); White Blood Count 4.3 K/mm3 (4.5-10.0)
[2022-09-10 06:04] LABS: Albumin Level 3.3 g/dL (3.5-5.1); Anion Gap 7 mmol/L (8-16); Blood Urea Nitrogen 23 mg/dL (7-17); Calcium 8.4 mg/dL (8.4-10.2); Carbon Dioxide 29 mmol/L (22-30); Chloride 98 mmol/L (98-107); Estimated CRCL calculation 14 ml/min; Estimated Glomerular Filt Rate 15; Glucose 119 mg/dL (65-110); Phosphorus 3.6 mg/dL (2.5-4.5); Potassium 4.4 mmol/L (3.4-5.0); Sodium 134 mmol/L (137-145)
[2022-09-10] MEDS: LEVOTHYROXINE SODIUM 88 MCG TABLET PO (06:07)
[2022-09-10 07:00] VITALS: BP 138/55; PULSE 68; RESP 16; TEMP 36.5; O2SAT 98
[2022-09-10] MEDS: CYCLOBENZAPRINE HCL 5 MG TABLET PO (08:15)
[2022-09-10] MEDS: ACIDOPHILUS/BULGARICUS CHEWABLE TABLET 2 TABLET BY MOUTH (08:15)
[2022-09-10] MEDS: busPIRone HCL 10 MG TABLET PO ×2 (08:15→16:39)
[2022-09-10] MEDS: SERTRALINE HCL 50 MG TABLET PO (08:15)
[2022-09-10] MEDS: QUEtiapine FUMARATE 25 MG TABLET PO (08:15)
[2022-09-10] MEDS: SEVELAMER CARBONATE 800 MG TABLET 1600 MG PO ×3 (08:15→16:38)
[2022-09-10] MEDS: FUROSEMIDE 40 MG TABLET PO ×2 (08:15→20:58)
[2022-09-10] MEDS: FAMOTIDINE 10 MG TABLET PO ×2 (08:15→20:58)
[2022-09-10] MEDS: traMADol HCL (*CRX) 50 MG TABLET PO ×2 (08:22→16:39)
[2022-09-10 09:18] LABS: Glucose Point of Care 119 mg/dl (65-105)
--- NOTE | 2022-09-10 10:58 | PM.IMPN ---
Progress Note: A&P Assessment and Plan (1) Pneumonia: Code(s): J18.9 - Pneumonia, unspecified organism Status: Acute Assessment and Plan: Patient presented to emergency department with altered mental status. Chest x-ray concerning for bilateral opacities suggesting bronchiolitis and left lower lobe consolidation concerning for pneumonia. WBC 14.2. Influenza a and B and COVID-19 PCR negative Patient started on empiric antibiotics-azithromycin 500 mg IV Q 24 hours and Rocephin 2 g Q 24 hours. Vancomycin post HD ordered as well. 09/10 change to oral azithromycin 500 mg Q24 hours, cefdinir 300 mg Q48 hours renally dosed to complete 7-day abx course MRSA nasal swab pending. Trend CBC Continue supportive care Monitor respiratory status (2) Altered mental status: Qualifiers: Altered mental status type: unspecified Qualified Code(s): R41.82 - Altered mental status, unspecified Code(s): R41.82 - Altered mental status, unspecified Status: Acute Assessment and Plan: likely secondary to acute illness and could be multifactorial from recent ciprofloxacin course, as well as [address] of the head with no acute abnormalities Sodium 130, BUN 48, creatinine 4.7, glucose 90, phos 4.9, calcium 8.7, ammonia less than 9 B12 and folate within normal limits TSH 0.176, free T4 0.55 and total T3 0.67 ?polypharmacy Patient is A&O x3 currently and symptoms of hallucination and altered mental status likely secondary to pneumonia and missing dialysis verses sundowning in worsening dementia. Continue to monitor neuro status 09/10- patient is still lethargic today. ?baseline. Decrease seroquel am dose 12.5 mg (3) ESRD on dialysis: Code(s): N18.6 - End stage renal disease; Z99.2 - Dependence on renal dialysis Status: Chronic Assessment and Plan: Chronic, continue dialysis and nephrology consulted for assistance with management Continue Sevelamer and furosemdie at current doses (4) Dementia: Qualifiers: Dementia behavioral or psychological symptom: unspecified whether behavioral, psychotic, or mood disturbance or anxiety Dementia severity: unspecified severity Dementia type: unspecified type Qualified Code(s): F03.90 - Unspecified dementia, unspecified severity, without behavioral disturbance, psychotic disturbance, mood disturbance, and anxiety Code(s): F03.90 - Unspecified dementia, unspecified severity, without behavioral disturbance, psychotic disturbance, mood disturbance, and anxiety Status: Chronic Assessment and Plan: Chronic, continue for now mirtazapine, sertraline, Seroquel and buspirone (5) Chronic atrial fibrillation: Code(s): I48.20 - Chronic atrial fibrillation, unspecified Status: Chronic Assessment and Plan: Chronic, rate controlled. Patient is not currently on anticoagulation given age and comorbidities (6) Hallucinations, visual: Code(s): R44.1 - Visual hallucinations Status: Acute Assessment and Plan: May be secondary to acute infection as above versus polypharmacy and worsening dementia. Will adjust current medications and monitor neuro status. No reported visual hallucinations at this time. Plan Code status: Full code Disposition: Inpatient Discharge plan: Patient lives with her spouse and daughter. PT/OT evaluation ordered and pending. Will likely discharge tomorrow after HD if remains stable. Time Spent With Patient Time with patient: 15 - 25 minutes Subjective Date/time seen: 09/10/22 10:58 Interval history: She feels tired and has a headache to the back and front of her head. She also has pain to her right knee and ankle. She denies vision changes, shortness of breath, chest pain, abd pain, N/V/D, anorexia, or dysuria. Review of Systems Review of Systems: All systems reviewed & are unremarkable except as noted in HPI and below Exam Narrative
[2022-09-10 15:05] VITALS: BP 145/68; PULSE 63; RESP 18; TEMP 36.4; O2SAT 100
--- NOTE | 2022-09-10 15:32 | PM.PNNEP ---
Progress Note: A&P Assessment and Plan (1) End stage renal disease: Code(s): N18.6 - End stage renal disease Status: Chronic Assessment and Plan: HD tomorrow and continue M/W/ schedule follow electrolytes, volume status, and clearance (2) Altered mental status: Qualifiers: Altered mental status type: unspecified Qualified Code(s): R41.82 - Altered mental status, unspecified Code(s): R41.82 - Altered mental status, unspecified Status: Acute Assessment and Plan: due to acute illness appears better at this time head CT negative continue current therapy (3) Healthcare associated bacterial pneumonia: Code(s): J15.9 - Unspecified bacterial pneumonia Status: Inactive Assessment and Plan: suggestive by admission imaging follow culture data on antibiotic therapy (4) Dementia: Qualifiers: Dementia behavioral or psychological symptom: unspecified whether behavioral, psychotic, or mood disturbance or anxiety Dementia severity: unspecified severity Dementia type: unspecified type Qualified Code(s): F03.90 - Unspecified dementia, unspecified severity, without behavioral disturbance, psychotic disturbance, mood disturbance, and anxiety Code(s): F03.90 - Unspecified dementia, unspecified severity, without behavioral disturbance, psychotic disturbance, mood disturbance, and anxiety Status: Chronic Assessment and Plan: chronic issue restarted on home medications (5) Hypertension: Code(s): I10 - Essential (primary) hypertension Status: Chronic Assessment and Plan: well controlled follow trend of hemodynamics (6) Anemia: Code(s): D64.9 - Anemia, unspecified Status: Chronic Assessment and Plan: due to ESRD Epogen with HD follow trend of H/H Will continue to follow. Subjective Date/time seen: 09/10/22 15:32 No acute distress but states she feels fatigued and tired; had a headache earlier today but this seems to be doing better; tolerated dialysis treatment yesterday without any issues or problems; no events noted overnight. Exam Narrative: General: elderly female in NAD Heart: normal S1 and S2; no rub Lungs: a few crackles at the bases Abdomen: soft, nontender, nondistended, positive bowel sounds Extremities: no cyanosis or clubbing; no edema Skin: warm and dry Objective Data Vital Signs Vital Signs: Vital Signs Temp Pulse Resp BP Pulse Ox O2 Del Method 09/10/22 15:05 97.5 F L 63 18 145/68 H 100 09/10/22 15:19 Room Air 09/10/22 08:00 Room Air 09/10/22 07:00 97.7 F 68 16 138/55 L 98 09/10/22 00:55 97.6 F 67 16 144/50 H 90 09/09/22 20:49 98.4 F 60 16 175/53 H 100 Intake/Output Intake/Output: Intake & Output 09/07/22 09/08/22 09/09/22 09/10/22 23:59 23:59 23:59 23:59 Intake Total 1570 1420 Output Total 1000 Balance 570 1420 Meds/Results Medications: Active Medications Generic Name Dose Route Start Last Admin Trade Name Balajiq PRN Reason Stop Dose Admin Allopurinol 100 mg 09/09/22 21:00 09/09/22 20:39 Allopurinol 100 Mg Tablet PO 100 mg HS ISSA Administration Aspirin 81 mg 09/09/22 21:00 09/09/22 20:38 Aspirin 81 Mg Enteric Tablet PO 81 mg HS ISSA Administration Azithromycin 500 mg 09/11/22 09:00 Azithromycin 250 Mg Tablet PO 09/11/22 09:01 DAILY ISSA Buspirone HCl 10 mg 09/09/22 09:00 09/10/22 16:39 Buspirone Hcl 10 Mg Tablet PO 10 mg BID ISSA Administration Cefdinir 300 mg 09/12/22 09:00 Cefdinir 300 Mg Capsule PO 09/14/22 09:01 Q48HR ISSA Cyclobenzaprine HCl 5 mg 09/09/22 09:00 09/10/22 08:15 Cyclobenzaprine Hcl 5 Mg Tablet PO 5 mg DAILY ISSA Administration Famotidine 10 mg 09/09/22 21:00 09/10/22 08:15 Famotidine 10 Mg Tablet PO 10 mg Q12HR ISSA Administration Furosemide 40 mg
[2022-09-10] MEDS: MIRTAZAPINE 7.5 MG TABLET PO (20:58)
[2022-09-10] MEDS: ASPIRIN 81 MG ENTERIC TABLET PO (20:58)
[2022-09-10] MEDS: allopurinoL 100 MG TABLET PO (20:58)
[2022-09-10] MEDS: SIMVASTATIN 20 MG TABLET 40 MG PO (20:58)
[2022-09-10] MEDS: QUEtiapine FUMARATE 25 MG TABLET 50 MG PO (20:58)
[2022-09-10 22:22] VITALS: BP 144/52; PULSE 60; RESP 16; TEMP 36.7; O2SAT 100
[2022-09-10 22:45] LABS: Glucose Point of Care 190 mg/dl (65-105)
[2022-09-11] VITALS (15 sets, daily range): BP systolic 111–195; BP diastolic 50–74; PULSE 59–89; RESP 16; TEMP 36–36.6; O2SAT 98
[2022-09-11] MEDS: traMADol HCL (*CRX) 50 MG TABLET PO (00:31)
[2022-09-11] MEDS: LEVOTHYROXINE SODIUM 88 MCG TABLET PO (06:33)
--- NOTE | 2022-09-11 08:30 | PC.NURSE ---
patient transferred to dialysis per bed.
[2022-09-11] MEDS: EPOETIN ALFA-EPBX 10,000 UNITS/ML VIAL 10000 UNITS IV PUSH (10:02)
[2022-09-11] MEDS: SODIUM CHLORIDE 0.9% IV 1,000 ML 999 ML IV CONT (10:03)
--- NOTE | 2022-09-11 10:05 | PCPTNOTE ---
The patient treatment was not able to be completed this morning on 09/11/2022 due to patient out of room for dialysis. Will plan to continue treatment per plan of care.
--- NOTE | 2022-09-11 11:59 | PC.NURSE ---
Pt returned from dialysis [place] RN reports 3L removed B/P 151/57 HR 60 Resp.16 and pt was restless during procedure.
--- NOTE | 2022-09-11 12:00 | PM.PNNEP ---
Progress Note: A&P Assessment and Plan (1) End stage renal disease: Code(s): N18.6 - End stage renal disease Status: Chronic Assessment and Plan: HD today and continue M// schedule follow electrolytes, volume status, and clearance (2) Altered mental status: Qualifiers: Altered mental status type: unspecified Qualified Code(s): R41.82 - Altered mental status, unspecified Code(s): R41.82 - Altered mental status, unspecified Status: Acute Assessment and Plan: due to acute illness appears better at this time head CT negative continue current therapy (3) Healthcare associated bacterial pneumonia: Code(s): J15.9 - Unspecified bacterial pneumonia Status: Inactive Assessment and Plan: suggestive by admission imaging follow culture data on antibiotic therapy (4) Dementia: Qualifiers: Dementia behavioral or psychological symptom: unspecified whether behavioral, psychotic, or mood disturbance or anxiety Dementia severity: unspecified severity Dementia type: unspecified type Qualified Code(s): F03.90 - Unspecified dementia, unspecified severity, without behavioral disturbance, psychotic disturbance, mood disturbance, and anxiety Code(s): F03.90 - Unspecified dementia, unspecified severity, without behavioral disturbance, psychotic disturbance, mood disturbance, and anxiety Status: Chronic Assessment and Plan: chronic issue restarted on home medications (5) Hypertension: Code(s): I10 - Essential (primary) hypertension Status: Chronic Assessment and Plan: well controlled follow trend of hemodynamics (6) Anemia: Code(s): D64.9 - Anemia, unspecified Status: Chronic Assessment and Plan: due to ESRD Epogen with HD follow trend of H/H Will continue to follow. Subjective Date/time seen: 09/11/22 12:00 Tolerating dialysis treatment at the time of my visit (seen on HD at 11:40AM); mentation seems to wax/wane but overall seems to be doing better; no issues/events overnight or earlier this AM. Exam Narrative: General: elderly female in NAD Heart: normal S1 and S2; no rub Lungs: dereased at bases Abdomen: soft, nontender, nondistended, positive bowel sounds Extremities: no cyanosis or clubbing; no edema Skin: warm and intact Objective Data Vital Signs Vital Signs: Vital Signs Temp Pulse Resp BP Pulse Ox O2 Del Method 09/11/22 11:43 97.6 F 60 16 151/57 H 12/16/22 11:35 60 153/50 H 09/11/22 11:30 60 143/55 H 09/11/22 11:10 60 155/71 H 09/11/22 10:50 74 129/59 L 09/11/22 10:30 62 165/64 H 09/11/22 10:10 59 L 145/60 H 09/11/22 09:50 69 153/69 H 09/11/22 09:30 89 111/74 09/11/22 09:10 60 176/69 H 09/11/22 08:10 98 Room Air 09/11/22 08:50 60 183/71 H 09/11/22 08:34 60 195/74 H 09/11/22 08:20 97.7 F 61 16 180/70 H 09/11/22 07:04 97.9 F 60 16 159/60 H 98 09/10/22 22:22 98.1 F 60 16 144/52 H 100 09/10/22 15:05 97.5 F L 63 18 145/68 H 100 09/10/22 15:19 Room Air Intake/Output Intake/Output: Intake & Output 09/08/22 09/09/22 09/10/22 09/11/22 23:59 23:59 23:59 23:59 Intake Total 1570 2060 500 Output Total 1000 3000 Balance 570 2060 -2500 Meds/Results Medications: Active Medications Generic Name Dose Route Start Last Admin Trade Name Archana PRN Reason Stop Dose Admin Allopurinol 100 mg 09/09/22 21:00 09/10/22 20:58 Allopurinol 100 Mg Tablet PO 100 mg HS ISSA Administration Aspirin 81 mg 09/09/22 21:00 09/10/22 20:58 Aspirin 81 Mg Enteric Tablet PO 81 mg HS ISSA Administration Buspirone HCl 10 mg 09/09/22 09:00 09/11/22 12:15 Buspirone Hcl 10 Mg Tablet PO 10 mg BID ISSA Administration Cefdinir 300 mg 09/12/22 09:00 Cefdinir 300 Mg Capsule PO 09/14/22 09:01
[2022-09-11 12:04] LABS: Glucose Point of Care 93 mg/dl (65-105)
[2022-09-11] MEDS: FAMOTIDINE 10 MG TABLET PO (12:14)
[2022-09-11] MEDS: AZITHROMYCIN 250 MG TABLET 500 MG PO (12:14)
[2022-09-11] MEDS: SERTRALINE HCL 50 MG TABLET PO (12:14)
[2022-09-11] MEDS: QUEtiapine FUMARATE 12.5 MG TABLET PO (12:14)
[2022-09-11] MEDS: CYCLOBENZAPRINE HCL 5 MG TABLET PO (12:15)
[2022-09-11] MEDS: FUROSEMIDE 40 MG TABLET PO (12:15)
[2022-09-11] MEDS: busPIRone HCL 10 MG TABLET PO (12:15)
[2022-09-11] MEDS: ACIDOPHILUS/BULGARICUS CHEWABLE TABLET 2 TABLET BY MOUTH (12:15)
[2022-09-11] MEDS: SEVELAMER CARBONATE 800 MG TABLET 1600 MG PO (12:15)
--- NOTE | 2022-09-11 13:56 | PM.DS ---
DS: Admitting Diagnosis Discharge Date 09/11/2022 1356 Admitting Diagnosis bacterial pneumonia Altered mental status ESRD on dialysis Dementia, chronic Chronic atrial fibrillation DS: Discharge Diagnosis Discharge Diagnosis (1) Pneumonia: Code(s): J18.9 - Pneumonia, unspecified organism Status: Acute Assessment and Plan: Patient presented to emergency department with altered mental status. Chest x-ray concerning for bilateral opacities suggesting bronchiolitis and left lower lobe consolidation concerning for pneumonia. WBC 4.2 on admission. Influenza a and B and COVID-19 PCR negative Patient started on empiric antibiotics-azithromycin 500 mg IV Q 24 hours and Rocephin 2 g Q 24 hours. Vancomycin post HD ordered as well. 09/10 change to oral azithromycin 500 mg Q24 hours, cefdinir 300 mg Q48 hours renally dosed to complete 7-day abx course MRSA nasal swab negative for colonization and Vancomycin was stopped. Leukocytosis resolved and she remained on room air. (2) Acute metabolic encephalopathy: Code(s): G93.41 - Metabolic encephalopathy Status: Acute Assessment and Plan: Possibly secondary to acute illness, but could be multifactorial from recent antibiotic, as well as [address] of the head with no acute abnormalities Sodium 130, BUN 48, creatinine 4.7, glucose 90, phos 4.9, calcium 8.7, ammonia less than 9 B12 and folate within normal limits TSH 0.176, free T4 0.55 and total T3 0.67. Not clinically significant. ?polypharmacy Neuro status improved and at baseline at discharge. (3) ESRD on dialysis: Code(s): N18.6 - End stage renal disease; Z99.2 - Dependence on renal dialysis Status: Chronic Assessment and Plan: Chronic, continue dialysis and nephrology consulted for assistance with management Continued Sevelamer and furosemde at current doses She underwent dialysis x 2 sessions Wednesday and Wednesday (4) Dementia: Qualifiers: Dementia behavioral or psychological symptom: unspecified whether behavioral, psychotic, or mood disturbance or anxiety Dementia severity: unspecified severity Dementia type: unspecified type Qualified Code(s): F03.90 - Unspecified dementia, unspecified severity, without behavioral disturbance, psychotic disturbance, mood disturbance, and anxiety Code(s): F03.90 - Unspecified dementia, unspecified severity, without behavioral disturbance, psychotic disturbance, mood disturbance, and anxiety Status: Chronic Assessment and Plan: Chronic, continued for now mirtazapine, sertraline, Seroquel and buspirone She is also taking Trazodone at HS. She may benefit from de-prescribing for improvement in mentation. (5) Chronic atrial fibrillation: Code(s): I48.20 - Chronic atrial fibrillation, unspecified Status: Chronic Assessment and Plan: Chronic, rate controlled. Patient is not currently on anticoagulation given age and comorbidities (6) Hallucinations, visual: Code(s): R44.1 - Visual hallucinations Status: Acute Assessment and Plan: May be secondary to acute infection as above versus polypharmacy and worsening dementia. No reported visual hallucinations during hospital stay DS: Summary Hospital Course Reason for hospitalization: Altered mental status Hospital Course: Diane Rojas is a 87-year-old female with dementia, dyslipidemia,?and end-stage renal disease on hemodialysis. She was recently treated for urinary tract infection and prescribed a course of ciprofloxacin. She missed her last 2 treatments of hemodialysis due to her illness.?On admission, her daughter reported the patient was delirious and has had hallucinations at home.? She at one point became agitated and belligerent and was trying to pull out her IV.?Influenza A/B and COVID19 were negative. Lab work showed H/H 11/35, WBC 4.3, platelets 115, sodium 129, chloride 91, bicarb 31,
--- NOTE | 2022-09-11 14:00 | PCOTNOTE ---
Attempted OT evaluation. Patient refuses at this time due to fatigue stating she has had a long day. Nurse reports getting back from dialysis an hour ago.
== END 2022-09-11 14:29 | disposition home or self-care (01) | DRG 193 ==
LOC: ANHED 22:23 → ANH2MED 23:56
PROVIDERS: Emergency Medicine; Internal Medicine Nephrology; Physician Assistant; Admitting Provider Internal Medicine; Emergency Provider Emergency Medicine; PCP Internal Medicine; Visit Provider Nurse Practitioner Family
DX: J18.9 Pneumonia, unspecified organism (principal); G92.8 Other toxic encephalopathy; G93.41 Metabolic encephalopathy; N18.6 End stage renal disease; I48.20 Chronic atrial fibrillation, unspecified; J21.9 Acute bronchiolitis, unspecified; I12.0 Hypertensive chronic kidney disease with stage 5 chronic kidney disease or end stage renal disease; J90 Pleural effusion, not elsewhere classified; R44.1 Visual hallucinations; T36.8X5A Adverse effect of other systemic antibiotics, initial encounter; T50.915A Adverse effect of multiple unspecified drugs, medicaments and biological substances, initial encounter; Z20.822 Contact with and (suspected) exposure to COVID-19; E78.5 Hyperlipidemia, unspecified; Z99.2 Dependence on renal dialysis; E66.9 Obesity, unspecified; Z68.30 Body mass index [BMI] 30.0-30.9, adult; K21.9 Gastro-esophageal reflux disease without esophagitis; G31.83 Neurocognitive disorder with Lewy bodies; F02.80 Dementia in other diseases classified elsewhere, unspecified severity, without behavioral disturbance, psychotic disturbance, mood disturbance, and anxiety; G47.33 Obstructive sleep apnea (adult) (pediatric); E11.42 Type 2 diabetes mellitus with diabetic polyneuropathy; E11.22 Type 2 diabetes mellitus with diabetic chronic kidney disease; I89.0 Lymphedema, not elsewhere classified; E11.319 Type 2 diabetes mellitus with unspecified diabetic retinopathy without macular edema; E03.9 Hypothyroidism, unspecified; D63.1 Anemia in chronic kidney disease
CPT/HCPCS: 36415; 51701; 70450; 71046; 80053; 80069; 80202; 81001; 82140; 82607; 82746; 82948; 83880; 84439; 84443; 84480; 84484; 85025; 85055; 85610; 85730; 86706; 87040; 87081; 87340; 87636; 93005; 96372; 96374; 96375; 97161; 99285; A9270; G0257; G0378; J0456; J0696; J1630; J1644; J2060; J3370; J7030; Q5105

== ENCOUNTER 2022-11-16 09:11 | Outpatient (CLI) | payer MEDICARE, SELFPAY ==
[2022-11-16 10:15] LABS: Appearance Urine Clear (Clear); Bilirubin Urine Negative (Negative); Blood Urine Negative (Negative); Color Urine Yellow (Yellow); Glucose Urine UA Negative (Negative); Ketones Urine Negative (Negative); Leukocyte Esterase Ur Trace LEU/UL (Negative); Nitrate Urine Negative (Negative); Protein Urine 3+ mg/dL (Negative); Specific Grav Ur 1.015 (1.001-1.035); Urobilinogen Urine 0.2 mg/dL (<2.0)
[2022-11-16 10:25] LABS: RBC Urine 0-2 /hpf (0-2); Squamous Epithelial Cell Urine Few /hpf (Few); WBC Urine 16-20 /hpf
[2022-11-16 10:26] LABS: Add Urine Microscopic? YES
== END 2022-11-16 09:12 | disposition home or self-care (01) ==
PROVIDERS: PCP Internal Medicine; Visit Provider Internal Medicine
DX: R39.9 Unspecified symptoms and signs involving the genitourinary system (principal)
CPT/HCPCS: 81001; 87086; 87147; 87181; 87186

== ENCOUNTER 2022-11-25 14:06 | Emergency (ER) | payer MEDICARE, SELFPAY ==
--- NOTE | ~2022-11-25 | XR_ITS ---
EXAMINATION: XR chest 1V INDICATION: Altered mental status TECHNIQUE: Frontal COMPARISON: 09/08/2022 FINDINGS: There are patchy airspace opacities of the lung bases. Small pleural effusions are present. There is no pneumothorax. Cardiomegaly is noted. A single lead pacemaker of the left chest wall ends with its lead in the right ventricle. Endovascular stents are noted in the right subclavian region a nd right upper extremity. Changes of cardiac valve repair are noted. IMPRESSION: 1. Patchy airspace opacities of the lung bases, consistent with atelectasis versus pneumonia. 2. Small pleural effusions. 3. Cardiomegaly. Reviewed, dictated and finalized at location F. RACT GRAPHIC DESIGNER IMPRESSION: 1. Patchy airspace opacities of the lung bases, consistent with atelectasis zoie emy pneumonia. 2. Small pleural effusions. 3. Cardiomegaly.
--- NOTE | ~2022-11-25 | CT_ITS ---
EXAMINATION: CT brain wo con INDICATION: Altered mental status, increased confusion COMPARISON: 09/08/2022 TECHNIQUE: Standard unenhanced head CT. The dose-length product (DLP) was 681.00 mGy-cm. The mA was a djusted according to patient size. Iterative reconstruction technique was employed. FINDINGS: There is no acute intraparenchymal hemorrhage. No evidence of mass lesion. No evidence of a cute infarction. There is mild periventricular and subcortical hypodensity probably related to small vessel ischemic disease. There is mild prominence of the sulci and ventricles related to cerebral atr ophy. Intracranial calcified cerebral atherosclerosis is noted. There are no extra-axial collections. There is no mass effect or midline shift. Changes in the globes are likely from ocular lens surgery. The visualized sinuses and mastoid air cells are well aerated. IMPRESSION: 1. No acute intracranial abnormality. 2. Age related findings. Reviewed, dictated and finalized at location F. SEALING INSPECTOR
--- NOTE | ~2022-11-25 | CT_ITS ---
EXAMINATION: CT abdomen pelvis wo con DATE: 11/25/2022 19:34 INDICATION: Urinary tract infection, abdominal pain TECHNIQUE: Computed tomography (CT) of the abdomen and pelvis was performed without intravenous contr ast. The dose-length product (DLP) was 1060.73 mGy-cm. Automated exposure control and iterative recon struction technique were employed. COMPARISON: 03/06/2022 FINDINGS: Minimal dependent atelectasis is present in the lung bases. There are small pleural effusio ns. Cardiomegaly is noted. A stone is present in the nondistended gallbladder. Punctate calcification s in an otherwise normal spleen likely represent healed granulomatous disease. The liver, pancreas, a nd adrenal glands are normal. Cysts of the kidneys measure up to 3 cm on the left. No pathologically enlarged abdominal or pelvic lymph nodes are identified. No free intraperitoneal gas or evidence of b owel obstruction. There is calcified atherosclerosis of the aorta and many of the other arteries. The re is an umbilical hernia containing fat. The appendix is normal. There is severe lumbar spondylosis. A sebaceous cyst is noted anteriorly in the left lower chest wall. IMPRESSION: 1. No CT correlate for the patient's symptoms. Reviewed, dictated and finalized at location F. ERY MECHANIC
[2022-11-25 14:29] VITALS: BP 143/65; PULSE 60; RESP 16; TEMP 36.8; O2SAT 100
--- NOTE | 2022-11-25 14:33 | ECG_ITS ---
Measurements Intervals [place] Rate: 60 P: AL: 0 QRS: -74 QRSD: 202 T: 102 QT: 530 QTc: 530 Interpretive Statements ELECTRONIC VENTRICULAR PACEMAKER BASELINE ARTIFACT- I, II, III, AVR, AVL, AVF, V1-V2, V4-V5 NO FURTHER INTERPRETATION IS POSSIBLE ATYPICAL ECG COMPARED TO ECG 09/08/2022 14:50:06 NO SIGNIFICANT CHANGES Electronically Signed On 11-25-2022 14:56:31 HYDRAULIC ENGINEER by Pete Yeboah D.O.
[2022-11-25 14:58] LABS: Basophils Percent Auto 0.4 % (0.2-1.2); Eosinophils Percent Auto 0.7 % (0-4.4); Hematocrit 37.8 % (37.0-47.0); Hemoglobin 12.3 g/dL (12.0-15.0); Immature Granulocyte Absolute 0.01 K/mm3 (0.00-0.031); Immature Granulocyte Percent A 0.2 % (0-0.5); Lymphocytes Absolute Auto 1.15 K/mm3 (0.9-3.2); Lymphocytes Percent Auto 25.7 % (18.3-44.2); Mean Corpuscular HGB Conc 32.5 g/dl (32-36); Mean Corpuscular Hemoglobin 31.9 pg (26-34); Mean Corpuscular Volume 97.9 fl (80-100); Mean Platelet Volume 11.9 fl (7.4-10.4); Monocytes Absolute Auto 0.4 K/mm3 (0.1-0.6); Monocytes Percent Auto 8.9 % (2.6-8.5); Neutrophils Absolute Auto 2.9 K/mm3 (1.3-6.7); Neutrophils Percent Auto 64.1 % (45.5-73.1); Platelet Count Result 112 k/mm3 (150-375); Red Blood Count 3.86 M/mm3 (4.2-5.4); Red Cell Distribution Width 14.6 % (11.5-14.5); White Blood Count 4.5 K/mm3 (4.5-10.0)
[2022-11-25 15:12] LABS: Alanine Aminotransferase 15 U/L (6-35); Albumin Level 4.1 g/dL (3.5-5.1); Alkaline Phosphatase 156 U/L (38-126); Anion Gap 9 mmol/L (8-16); Aspartate Amino Transferase 26 U/L (14-36); Bilirubin,Total 0.5 mg/dL (0.2-1.3); Blood Urea Nitrogen 66 mg/dL (7-17); Calcium 9.3 mg/dL (8.4-10.2); Carbon Dioxide 31 mmol/L (22-30); Chloride 92 mmol/L (98-107); Estimated CRCL calculation 8 ml/min; Estimated Glomerular Filt Rate 7; Glucose 195 mg/dL (65-110); Partial Thromboplastin Time 30.7 SECONDS (22.3-36.8); Prothrombin Time 12.4 Seconds (11.1-14.7); Sodium 132 mmol/L (137-145)
[2022-11-25 17:18] VITALS: BP 184/53; PULSE 59; RESP 16; TEMP 36.4; O2SAT 97
[2022-11-25 19:01] VITALS: BP 180/51; PULSE 60; RESP 12; O2SAT 98
[2022-11-25 19:04] VITALS: PULSE 60
--- NOTE | 2022-11-25 20:13 | ED.AMS ---
HPI - Altered Mental Status General Chief Complaint: Altered Mental Status Stated Complaint: UTI CONFUSION Time Seen by Provider: 11/25/22 18:59 Source: RN notes reviewed History of Present Illness HPI narrative: Patient presents emergency department from home for altered mental status. History is per the patient as well as the patient's daughter this present. Patient has been having some altered mental status and confusion for the past 1 week. Per the daughter the patient has started acting confused 1 week ago and then did have some improvement and then it worsened again they gone to see Dr. Pratt is the patient's primary care physician and had testing done that showed the patient had a UTI. The patient is on daily doxycycline and is felt the dietarily doxycycline would help with the UTI and the patient has been on this for several days with no improvement per the family the patient's been combative at home and more confused patient currently is laying in bed with no complaints she denies any pain at this time she denies any fevers or chills patient is a dialysis patient with dialysis Wednesday with last dialysis on Wednesday Related Data Home Medications Medication Instructions Recorded Confirmed sevelamer HCl 800 mg tablet 1,600 mg PO TID 08/20/20 09/09/22 Lactobacillus 1 cap PO DAILY 02/26/21 09/09/22 no.51-Bifidobacterium no.4 50 billion cell capsule (up4 Probiotics Ultra) aspirin 81 mg tablet,delayed 81 mg PO HS 02/26/21 09/09/22 release (Adult Low Dose Aspirin) biotin 1,000 mcg chewable tablet 100 mcg PO QPM 02/26/21 09/09/22 d-mannose 500 mg capsule 1,000 mg PO BID 07/02/21 07/13/22 quetiapine 25 mg tablet 25 mg PO QAM 03/06/22 09/09/22 quetiapine 25 mg tablet 50 mg PO QHS 03/06/22 09/09/22 Dicyclomine/Benadryl/Maalox PO 04/03/22 07/13/22 furosemide 40 mg tablet 40 mg PO Q12H 09/09/22 09/09/22 levothyroxine 88 mcg tablet 88 mcg PO DAILY 09/09/22 09/09/22 omeprazole 40 mg capsule,delayed 40 mg PO BID 09/09/22 09/09/22 release ondansetron 8 mg disintegrating 8 mg PO PRN PRN Nausea 09/09/22 09/09/22 tablet flash glucose sensor (FreeStyle 11/17/22 Willie 2 Sensor kit) Allergies Allergy/AdvReac Type Severity Reaction Status Date / Time amoxicillin Allergy Unknown Unknown Verified 09/08/22 18:05 clavulanic acid Allergy Unknown Unknown Verified 09/08/22 18:05 Penicillins Allergy Unknown Other Verified 09/08/22 18:05 Sulfa (Sulfonamide Allergy Unknown Unknown Verified 09/08/22 18:05 Antibiotics) sulfamethoxazole Allergy Unknown Unknown Verified 09/08/22 18:05 Review of Systems Review of Systems: Gen.: Denies fevers or chills ENT: Denies congestion Respiratory: Denies shortness of breath or cough CV: Denies chest pain or palpitations GI: Denies abdominal pain nausea, emesis or diarrhea reports recent UTI Musculoskeletal: Denies back pain or muscle pain Neuro: Reports altered mental status Skin: Denies rash Except as documented, all other systems reviewed and negative [facility] Past Medical History Medical History A-fib Abdominal pain Abnormal bruising Abrasion Alopecia Altered mental status Benign essential hypertension Blister Blood blister BMI 27.0-27.9,adult BMI 29.0-29.9,adult BMI 30.0-30.9,adult BMI 30.0-30.9,adult BMI 31.0-31.9,adult BMI 32.0-32.9,adult BMI 33.0-33.9,adult BMI 34.0-34.9,adult BMI 35.0-35.9,adult BMI 36.0-36.9,adult Callus of foot Candidiasis Chronic acquired lymphedema Chronic pain CKD (chronic kidney disease) stage 3, GFR 30-59 ml/min Congestion of both ears Constipation Contusion of lower extremity Diabetes mellitus with neuropathy Diabetic retinopathy DM type 2 (diabetes mellitus, type 2) Dysuria Encounter for routine adult health examination without abnormal findings ESRD (end stage renal disease) Follow up Frequent UTI Generalized edema GERD (gastroesophageal reflux disease) Gout Hyp
[2022-11-25 20:40] LABS: Appearance Urine Clear (Clear); Bacteria Urine None Seen /hpf; Bilirubin Urine Negative (Negative); Blood Urine Negative (Negative); Color Urine Yellow (Yellow); Glucose Urine UA Negative (Negative); Ketones Urine Negative (Negative); Leukocyte Esterase Ur Negative LEU/UL (Negative); Nitrate Urine Negative (Negative); Non Pathogenic Casts 0-2; Protein Urine 3+ mg/dL (Negative); RBC Urine 0-2 /hpf (0-2); Specific Grav Ur 1.015 (1.001-1.035); Squamous Epithelial Cell Urine None seen /hpf (Few); Urobilinogen Urine 0.2 mg/dL (<2.0); WBC Urine 0-5 /hpf
[2022-11-25 20:42] VITALS: BP 168/65; PULSE 65; RESP 18; TEMP 36.4; O2SAT 99
[2022-11-25 21:03] LABS: Add Urine Microscopic? YES
[2022-11-25 21:07] LABS: Influenza A QL RT-PCR Negative (Negative); Influenza B QL RT-PCR Negative (Negative); SARS-CoV-2 RNA PCR Negative
[2022-11-25] MEDS: ALPRAZolam (*CRX) 0.25 MG TABLET PO (21:51)
[2022-11-25 22:03] VITALS: BP 169/79; PULSE 84; RESP 18; TEMP 36.6; O2SAT 99
== END 2022-11-25 22:04 | disposition home or self-care (01) ==
PROVIDERS: Emergency Medicine; Emergency Provider Emergency Medicine; PCP Internal Medicine
DX: F03.90 Unspecified dementia, unspecified severity, without behavioral disturbance, psychotic disturbance, mood disturbance, and anxiety (principal); I12.9 Hypertensive chronic kidney disease with stage 1 through stage 4 chronic kidney disease, or unspecified chronic kidney disease; E11.22 Type 2 diabetes mellitus with diabetic chronic kidney disease; N18.30 Chronic kidney disease, stage 3 unspecified; I48.91 Unspecified atrial fibrillation; K21.9 Gastro-esophageal reflux disease without esophagitis; E03.9 Hypothyroidism, unspecified; Z20.822 Contact with and (suspected) exposure to COVID-19
CPT/HCPCS: 36415; 51701; 70450; 71045; 74176; 80053; 81001; 83605; 85025; 85610; 85730; 87040; 87636; 93005; 99284; A9270

== ENCOUNTER 2023-01-08 08:02 | Outpatient (NON) | payer MEDICARE, SELFPAY ==
[2023-01-08 10:08] LABS: Appearance Urine Cloudy (Clear); Bacteria Urine 2+ /hpf; Bilirubin Urine Negative (Negative); Color Urine Yellow (Yellow); Glucose Urine UA Negative (Negative); Ketones Urine Negative (Negative); Leukocyte Esterase Ur 1+ LEU/UL (Negative); Need Manual Microscopic Reviewed; Nitrate Urine Negative (Negative); Non Pathogenic Casts 0-2; Protein Urine 3+ mg/dL (Negative); RBC Urine 21-50 /hpf (0-2); Specific Grav Ur 1.014 (1.001-1.035); Squamous Epithelial Cell Urine Few /hpf (Few); Urobilinogen Urine 0.2 mg/dL (<2.0); WBC Urine 21-50 /hpf
[2023-01-08 10:11] LABS: Add Urine Microscopic? YES
== END 2023-01-08 08:03 | disposition home or self-care (01) ==
LOC: ANHLAB 08:04
PROVIDERS: PCP Internal Medicine; Visit Provider Internal Medicine
DX: R30.0 Dysuria (principal)
CPT/HCPCS: 81001; 87086; 87147; 87181; 87186

== ENCOUNTER 2023-02-02 16:57 | Emergency (ER) | payer MEDICARE, SELFPAY ==
--- NOTE | ~2023-02-02 | CT_ITS ---
EXAMINATION: CT brain wo con DATE: 02/02/2023 17:34 INDICATION: Fall . TECHNIQUE: Computed tomography (CT) of the head was performed without intravenous contrast. The mA wa s adjusted according to patient size. Iterative reconstruction technique was employed. The dose-lengt h product was 605.33 mGy-cm. COMPARISON: 11/25/2022. FINDINGS: No acute intracranial hemorrhage or extra-axial fluid collection. No hydrocephalus, mass, or herniation. No acute ischemic infarct. Unremarkable dural venous sinus attenuation. No acute osseous abnormality. The aerated spaces are clear. Mild atrophy and chronic white matter change. Atherosclerotic intracranial calcification. 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 Bilateral lens replacements. IMPRESSION: No acute intracranial process. Reviewed, dictated and finalized at location K.
--- NOTE | ~2023-02-02 | CT_ITS ---
EXAMINATION: CT chest abdomen pelvis wo con DATE: 02/02/2023 17:34 INDICATION: Polytrauma . TECHNIQUE: Computed tomography (CT) of the chest, abdomen, and pelvis was performed without intraveno us contrast. Automated exposure control and iterative reconstruction technique were employed. The dos e-length product was 1405.78 mGy-cm. COMPARISON: CT abdomen and pelvis 11/25/2022; x-ray chest 11/25/2022 FINDINGS: Sensitivity for vascular access. Intravenous decreased without the use of intravenous contrast. CHEST: Right subclavian vascular stent. Left chest pacer/defibrillator. No thoracic aortic injury. No mediastinal hematoma. No pericardial effusion. Hepatomegaly. Prior valve replacement. No acute lung injury. Bibasilar atelectasis. Moderate left and small right pleural fluid collections. No pneumothorax. ABDOMEN/PELVIS: No solid organ injury. Multiple renal cysts. No evidence of bowel or mesenteric injury. Cholelithiasis. No free fluid or free air. No retroperitoneal hematoma. Pelvic contents are atraumatic. MUSCULOSKELETAL: Nondisplaced left posterior 10th through 12th rib fractures. Nondisplaced 8 through 10th left lateral rib fractures. Uncomplicated fat-containing umbilical hernia. No fracture or traumatic malalignment of the pelvis, thoracic or lumbar spine. IMPRESSION: Moderate left and mild right pleural effusions. Nondisplaced left posterior 10th through 12th rib fra ctures. Nondisplaced eighth through 10th left lateral rib fractures. Reviewed, dictated and finalized at [facility] K. IMPRESSION: Moderate left and mild right pleural effusions. Nondisplaced left posterior 10t h through 12th rib fractures. Nondisplaced eighth through 10th left lateral rib fractures.
--- NOTE | ~2023-02-02 | CT_ITS ---
EXAMINATION: CT cervical spine wo con DATE: 02/02/2023 17:34 INDICATION: Polytrauma TECHNIQUE: Computed tomography (CT) of the cervical spine was performed without intravenous contrast. Automated exposure control and iterative reconstruction technique were employed. The dose-length pro duct was 452.19 mGy-cm. COMPARISON: 02/18/2014. FINDINGS: Vertebral Body Alignment: Intact. Stable grade 1 anterolisthesis at C4-5. Craniocervical and atlantoaxial alignment: Moderate degenerative change. Alignment intact. Osseous structures/fracture: No evidence of a lytic or blastic process in the visualized spine. No e vidence of acute fracture. . Cervical soft tissues: The paraspinal soft tissues planes are maintained. Multinodular goiter. Degenerative changes: Degenerative changes, without severe neural foraminal or central canal narrowin g. IMPRESSION: No acute fracture or traumatic malalignment in the cervical spine. Reviewed, dictated and finalized at location K.
[2023-02-02 16:57] VITALS: BP 157/47; PULSE 60; RESP 16; TEMP 37.2; O2SAT 100
[2023-02-02 17:35] VITALS: BP 128/48; PULSE 59; RESP 16; O2SAT 100
--- NOTE | 2023-02-02 17:43 | ED.FALL ---
HPI - Fall General Chief Complaint: Fall Stated Complaint: GLF, hallucinating Time Seen by Provider: 02/02/23 16:59 History of Present Illness HPI Narrative: This is an 87-year-old female with reported history of end-stage renal disease on dialysis (MWF), schizophrenia, who presents to the emergency department after a fall. The patient states she was using her walker, when she missed a step, falling to the left and striking a door. She denies loss of consciousness. She denies preceding chest pain, shortness of breath or palpitations. She denies the symptoms now. She complains of left-sided back pain, rated 5/10 and described as dull and occasionally sharp. She politely declines pain medications. Her daughter who is at bedside, notes the patient has had increased hallucinations in the last few days which has occurred with prior urinary tract infections. Related Data Home Medications Medication Instructions Recorded Confirmed sevelamer HCl 800 mg tablet 1,600 mg PO TID 08/20/20 12/09/22 Lactobacillus 1 cap PO DAILY 02/26/21 12/09/22 no.51-Bifidobacterium no.4 50 billion cell capsule (up4 Probiotics Ultra) aspirin 81 mg tablet,delayed 81 mg PO HS 02/26/21 12/09/22 release (Adult Low Dose Aspirin) biotin 1,000 mcg chewable tablet 100 mcg PO QPM 02/26/21 12/09/22 d-mannose 500 mg capsule 1,000 mg PO BID 07/02/21 12/09/22 quetiapine 25 mg tablet 25 mg PO QAM 03/06/22 12/09/22 quetiapine 25 mg tablet 50 mg PO QHS 03/06/22 12/09/22 Dicyclomine/Benadryl/Maalox PO 04/03/22 12/09/22 furosemide 40 mg tablet 40 mg PO Q12H 09/09/22 12/09/22 flash glucose sensor (FreeStyle 11/17/22 12/09/22 Willie 2 Sensor kit) Allergies Allergy/AdvReac Type Severity Reaction Status Date / Time amoxicillin Allergy Unknown Unknown Verified 02/02/23 17:03 clavulanic acid Allergy Unknown Unknown Verified 02/02/23 17:03 Penicillins Allergy Unknown Other Verified 02/02/23 17:03 Sulfa (Sulfonamide Allergy Unknown Unknown Verified 02/02/23 17:03 Antibiotics) sulfamethoxazole Allergy Unknown Unknown Verified 02/02/23 17:03 Review of Systems Review of Systems: CONSTITUTIONAL: Denies fever, chills, or sweats. CARDIOVASCULAR: Denies chest pain, palpitations, or edema. RESPIRATORY: Denies cough or dyspnea. GASTROINTESTINAL: Denies abdominal pain, nausea, vomiting, or diarrhea. GENITOURINARY: Denies dysuria or hematuria. SKIN: Denies rash or itching. MUSCULOSKELETAL: Left-sided back pain denies joint pain, or myalgia. NEUROLOGIC: Denies headache, numbness, dizziness, or weakness. PSYCHIATRIC: Denies anxiety or depression. [facility] Past Medical History Medical History A-fib Abdominal pain Abnormal bruising Abrasion Alopecia Altered mental status Benign essential hypertension Blister Blood blister BMI 27.0-27.9,adult BMI 27.0-27.9,adult BMI 29.0-29.9,adult BMI 30.0-30.9,adult BMI 30.0-30.9,adult BMI 31.0-31.9,adult BMI 32.0-32.9,adult BMI 33.0-33.9,adult BMI 34.0-34.9,adult BMI 35.0-35.9,adult BMI 36.0-36.9,adult Callus of foot Candidiasis Chronic acquired lymphedema Chronic pain CKD (chronic kidney disease) stage 3, GFR 30-59 ml/min Congestion of both ears Constipation Contusion of lower extremity Diabetes mellitus with neuropathy Diabetic retinopathy DM type 2 (diabetes mellitus, type 2) Dysuria Encounter for routine adult health examination with abnormal findings Encounter for routine adult health examination without abnormal findings ESRD (end stage renal disease) Follow up Frequent UTI Generalized edema GERD (gastroesophageal reflux disease) Gout Hyperlipidemia Hypoglycemia associated with type 2 diabetes mellitus Hypothyroidism (acquired) Nausea Non-healing skin lesion On detention drug therapy RENATE (obstructive sleep apnea) RENATE on CPAP Pressure injury of right buttock, stage 1 Renal failure SK (seborrheic keratosis) Stress Urinary frequency UTI (urinary trac
[2023-02-02 17:50] LABS: Basophils Percent Auto 0.3 % (0.2-1.2); Eosinophils Percent Auto 0.5 % (0-4.4); Hematocrit 31.4 % (37.0-47.0); Hemoglobin 10.2 g/dL (12.0-15.0); Immature Granulocyte Absolute 0.01 K/mm3 (0.00-0.031); Immature Granulocyte Percent A 0.2 % (0-0.5); Lymphocytes Absolute Auto 1.15 K/mm3 (0.9-3.2); Lymphocytes Percent Auto 19.7 % (18.3-44.2); Mean Corpuscular HGB Conc 32.5 g/dl (32-36); Mean Corpuscular Hemoglobin 32.8 pg (26-34); Monocytes Absolute Auto 0.6 K/mm3 (0.1-0.6); Monocytes Percent Auto 10.1 % (2.6-8.5); Neutrophils Absolute Auto 4.1 K/mm3 (1.3-6.7); Neutrophils Percent Auto 69.2 % (45.5-73.1); Platelet Count Result 111 k/mm3 (150-375); Red Blood Count 3.11 M/mm3 (4.2-5.4); Red Cell Distribution Width 15.9 % (11.5-14.5); White Blood Count 5.9 K/mm3 (4.5-10.0)
[2023-02-02 18:00] VITALS: BP 138/69; PULSE 59; RESP 15; O2SAT 98
[2023-02-02 18:07] LABS: Alanine Aminotransferase 17 U/L (6-35); Albumin Level 3.7 g/dL (3.5-5.1); Alkaline Phosphatase 159 U/L (38-126); Anion Gap 9 mmol/L (8-16); Aspartate Amino Transferase 31 U/L (14-36); Bilirubin,Total 0.7 mg/dL (0.2-1.3); Blood Urea Nitrogen 49 mg/dL (7-17); Calcium 8.7 mg/dL (8.4-10.2); Carbon Dioxide 29 mmol/L (22-30); Chloride 94 mmol/L (98-107); Estimated CRCL calculation 10 ml/min; Estimated Glomerular Filt Rate 11; Glucose 106 mg/dL (65-110); Potassium 5.2 mmol/L (3.4-5.0); Sodium 132 mmol/L (137-145)
[2023-02-02 18:43] LABS: Appearance Urine Clear (Clear); Bacteria Urine None Seen /hpf; Bilirubin Urine Negative (Negative); Blood Urine Negative (Negative); Color Urine Dark Yellow (Yellow); Glucose Urine UA Negative (Negative); Hyaline Casts Urine Present /lpf; Ketones Urine Trace mg/dL (Negative); Leukocyte Esterase Ur Trace LEU/UL (Negative); Nitrate Urine Negative (Negative); Protein Urine 3+ mg/dL (Negative); RBC Urine 0-2 /hpf (0-2); Specific Grav Ur 1.016 (1.001-1.035); Squamous Epithelial Cell Urine None seen /hpf (Few); WBC Urine 0-5 /hpf; pH Urine 6.5 (5.0-9.0)
[2023-02-02 18:58] LABS: Add Urine Microscopic? YES
[2023-02-02 19:02] VITALS: BP 153/50; PULSE 60; RESP 14; O2SAT 97
== END 2023-02-02 19:57 | disposition short-term general hospital (02) ==
LOC: ANHED 18:50
PROVIDERS: Emergency Provider Preventive Medicine Aerospace Medicine; PCP Internal Medicine
DX: S22.42XA Multiple fractures of ribs, left side, initial encounter for closed fracture (principal); S29.9XXA Unspecified injury of thorax, initial encounter; E11.22 Type 2 diabetes mellitus with diabetic chronic kidney disease; I12.0 Hypertensive chronic kidney disease with stage 5 chronic kidney disease or end stage renal disease; N18.6 End stage renal disease; Z99.2 Dependence on renal dialysis; E11.40 Type 2 diabetes mellitus with diabetic neuropathy, unspecified; E78.5 Hyperlipidemia, unspecified; E03.9 Hypothyroidism, unspecified; G47.33 Obstructive sleep apnea (adult) (pediatric); M10.9 Gout, unspecified; K21.9 Gastro-esophageal reflux disease without esophagitis; F20.9 Schizophrenia, unspecified; Z87.440 Personal history of urinary (tract) infections; Z79.82 Long term (current) use of aspirin; W10.9XXA Fall (on) (from) unspecified stairs and steps, initial encounter
CPT/HCPCS: 36415; 70450; 71250; 72125; 74176; 80053; 81001; 85025; 99285

== ENCOUNTER 2023-02-19 08:25 | Outpatient (NON) | payer MEDICARE, SELFPAY ==
[2023-02-19 10:23] LABS: Appearance Urine Turbid (Clear); Bacteria Urine 4+ /hpf; Bilirubin Urine Negative (Negative); Blood Urine 2+ (Negative); Color Urine Dark Yellow (Yellow); Glucose Urine UA Negative (Negative); Ketones Urine Negative (Negative); Leukocyte Esterase Ur 3+ LEU/UL (Negative); Nitrate Urine Negative (Negative); Non Pathogenic Casts 0-2; Protein Urine 3+ mg/dL (Negative); Specific Grav Ur 1.013 (1.001-1.035); Squamous Epithelial Cell Urine Few /hpf (Few); Urobilinogen Urine 0.2 mg/dL (<2.0); WBC Urine >100 /hpf
[2023-02-19 10:24] LABS: Add Urine Microscopic? YES
== END 2023-02-19 08:26 | disposition home or self-care (01) ==
PROVIDERS: PCP Internal Medicine; Visit Provider Internal Medicine
DX: R39.9 Unspecified symptoms and signs involving the genitourinary system (principal)
CPT/HCPCS: 81001; 87086; 87147; 87181; 87186

== ENCOUNTER 2023-03-08 13:28 | Outpatient (CLI) | payer MEDICARE, SELFPAY ==
--- NOTE | ~2023-03-08 | XR_ITS ---
EXAMINATION: XR foot LT min 3V DATE: 03/08/2023 13:53 INDICATION: Left foot pain and swelling, neuropathy TECHNIQUE: Dorsoplantar, lateral, and 2 oblique views of the left foot were obtained. COMPARISON: None. FINDINGS: There is severe osteoarthritis of the midfoot at the tarsometatarsal joints. There is sever e osteoarthritis at the second and third metatarsophalangeal joints. There is dorsal subluxation of t he third proximal phalanx with respect to the third metatarsal. There appears to be an old healed fra cture at the distal aspect of the third proximal phalanx. There is marked soft tissue swelling of the foot and lower extremity. Posterior and plantar calcaneal enthesophytes are noted. There is osteoart hritis at the talocalcaneal joint posteriorly. IMPRESSION: 1. Severe polyarticular osteoarthritis. 2. Marked soft tissue swelling of the foot, edema versus cellulitis versus abscess. Recommend clinica l correlation. Reviewed, dictated and finalized at location A. IMPRESSION: 1. Severe polyarticular osteoarthritis. 2. Marked soft tissue swelling of the foot, edema versus cellulitis versus absc ess. Recommend clinical correlation.
== END 2023-03-08 13:29 | disposition home or self-care (01) ==
PROVIDERS: PCP Internal Medicine; Visit Provider Internal Medicine
DX: M79.672 Pain in left foot (principal); M15.9 Polyosteoarthritis, unspecified; R22.42 Localized swelling, mass and lump, left lower limb
CPT/HCPCS: 73630

== ENCOUNTER 2023-04-07 08:16 | Outpatient (CLI) | payer MEDICARE, SELFPAY ==
[2023-04-07 08:35] LABS: Appearance Urine Clear (Clear); Bacteria Urine None Seen /hpf; Bilirubin Urine Negative (Negative); Blood Urine Negative (Negative); Color Urine Dark Yellow (Yellow); Glucose Urine UA Negative (Negative); Ketones Urine Negative (Negative); Leukocyte Esterase Ur Trace LEU/UL (Negative); Nitrate Urine Negative (Negative); Non Pathogenic Casts 0-2; Protein Urine 3+ mg/dL (Negative); RBC Urine 0-2 /hpf (0-2); Specific Grav Ur 1.015 (1.001-1.035); Squamous Epithelial Cell Urine Few /hpf (Few); pH Urine 7.5 (5.0-9.0)
[2023-04-07 09:03] LABS: Add Urine Microscopic? YES
== END 2023-04-07 08:17 | disposition home or self-care (01) ==
LOC: ANHLAB 08:17
PROVIDERS: PCP Internal Medicine; Visit Provider Internal Medicine
DX: R31.9 Hematuria, unspecified (principal); R41.82 Altered mental status, unspecified
CPT/HCPCS: 81001; 87086; 87147; 87181; 87186